=== PATIENT | female | born 1990 | race Hispanic/Latino ===

== ENCOUNTER 2018-12-12 20:35 | Inpatient (IN) | payer OTHER ==
[2018-12-12] MEDS ORDERED: Pantoprazole 40 MG VIAL ONE (20:52)
[2018-12-12] MEDS ORDERED: Metoclopramide HCl 10 MG/2 ML VIAL ONE (20:56)
--- NOTE | 2018-12-12 21:40 | RAD ---
PORTABLE CHEST: HISTORY: Chest pain. FINDINGS: Heart size and mediastinum are within normal limits for the portable technique. The lungs are clear of infiltrates. No significant bony findings. IMPRESSION: No active intrathoracic disease. POS: BENJIE
[2018-12-12 21:51] LABS: Actual Bicarbonate (HCO3v) 10 mEq/L (22-28); Analyzer IN Cardio ER; Base Excess -13.5 mEq/L (-2.0 to +3.0); Calcium, Ionized 0.83 mmol/L (1.16-1.32); Chloride (ABG LAB) 93 mmol/L (98-106); Hemoglobin (Hb) 12.9 g/dL (11.7-15.5); Potassium - ABG Lab 4.36 mmol/L (3.70-5.30); Sodium 126.1 mmol/L (133-146); pH (venous) 7.33 (7.32-7.43)
[2018-12-12 21:52] LABS: BHCG - Serum POSITIVE (NEGATIVE); Pregs Control Background? CLEAR/WHITE (CLR/WHITE); Pregs Control Bar Appear? YES (CONTROL BAR)
[2018-12-12 21:55] LABS: ALT (SGPT) 12 U/L (8-55); CK (CPK) 138 U/L (29-168); Magnesium 1.7 mg/dL (1.6-2.6); Sodium 124 mmol/L (136-145)
[2018-12-12 21:56] LABS: Anion Gap 25 mmol/L (10-20); Carbon Dioxide 13 mmol/L (22-29); Chloride 91 mmol/L (98-107); Potassium 4.8 mmol/L (3.5-5.1)
[2018-12-12 21:57] LABS: BUN (Urea Nitrogen) 17 mg/dL (7.0-18.7); Calc. Creatinine Clearance 0 mL/min (70-130); Estimated GFR-MDRD 76; Glucose 444 mg/dL (70-105)
[2018-12-12 21:59] LABS: Bilirubin, Total 1.1 mg/dL (0.2-1.2); Calcium 5.2 mg/dL (7.8-10.44); Protein, Total 6.1 g/dL (6.0-8.3)
[2018-12-12 22:00] LABS: AST (SGOT) 61 U/L (5-34); Albumin 3.4 g/dL (3.5-5.0); Alkaline Phosphatase 60 U/L (40-150); Globulin 2.7 g/dL (2.4-3.5)
[2018-12-12 22:01] LABS: Lipase 440 U/L (8-78); Phosphorus 2.3 mg/dL (2.3-4.7)
[2018-12-12 22:28] LABS: Bilirubin Moderate (Negative); Blood, Urine Small (Negative); Clarity CLOUDY (Clear); Glucose, Urine (Dipstick) >=1000 mg/dL (Negative); Leukocyte Negative (Negative); Nitrite Negative (Negative); Protein, Urine (Dipstick) 30 mg/dL (Neg-Trace); Specific Gravity, Urine 1.025 (1.002-1.036); Urobilinogen 0.2 mg/dL (0.2-1.0); pH, Urine 5.5 (5.0-9.0)
[2018-12-12 22:29] LABS: Bacteria/HPF None Seen HPF (None Seen); Pregnancy Test - Urine (BHCG) Negative (Negative); Pregu Control Background? CLEAR/WHITE (CLR/WHITE); Pregu Control Bar Appear? YES (CONTROL BAR); Specific Gravity 1.025 (1.002-1.036); WBC/HPF 0-3 HPF (0-3)
[2018-12-12 22:31] LABS: Hyaline Casts/LPF 0-3 HYALINE CAST LPF (0-3 Hyaline); Pathc Cast-AUWi Flag 2.61 (0-2.49)
[2018-12-12] MEDS ORDERED: Insulin Regular 300 UNITS/3 ML VIAL ONE (23:10)
[2018-12-12] MEDS ORDERED: Lorazepam 2 MG/ML VIAL ONE (23:14)
[2018-12-12] MEDS ORDERED: Lidocaine Viscous Sol 2% 15 ml UD Cup ONE (23:14)
[2018-12-12] MEDS ORDERED: Mag-Al 1200 mg/1200 mg/30 ML UDCUP ONE (23:14)
[2018-12-12] MEDS ORDERED: Insulin Regular 100 units/100 ml in NS IVPB SCH (23:15)
[2018-12-12] MEDS ORDERED: HUMULIN R 100 UNITS in Sodium Chloride 0.9% 100 ML IVPB SCH (23:45)
[2018-12-12] MEDS ORDERED: Ondansetron ODT 4 MG TAB PO PRN (23:56)
[2018-12-12] MEDS ORDERED: Sodium Chloride 0.9% 1,000 ML IV PRN ×4 (23:57)
[2018-12-12] MEDS ORDERED: CCU Electrolyte Replacement 1 EACH IVPB ONE (23:57)
[2018-12-12] MEDS ORDERED: Dextrose 5 %-0.45 % NaCl 1,000 ML IV PRN (23:57)
[2018-12-12] MEDS ORDERED: NS 0.9% w/ 20 MEQ KCL 1,000 ML IV PRN ×2 (23:57)
[2018-12-13 00:42] LABS: BUN (Urea Nitrogen) 15 mg/dL (7.0-18.7); Calc. Creatinine Clearance 0 mL/min (70-130); Calcium 5.4 mg/dL (7.8-10.44); Carbon Dioxide Less than 8 mmol/L (22-29); Chloride 98 mmol/L (98-107); Estimated GFR-MDRD Greater than 90; Glucose 297 mg/dL (70-105); Potassium 4.5 mmol/L (3.5-5.1); Sodium 124 mmol/L (136-145)
[2018-12-13 00:43] LABS: Free T4 (Free Thyroxine) 1.14 ng/dL (0.70-1.48); Thyroid Stimulating Hormone 0.1877 uIU/mL (0.35-4.94)
[2018-12-13] MEDS ORDERED: Magnesium Oxide 400 MG TAB PO PRN ×2 (00:51)
[2018-12-13] MEDS ORDERED: Potassium Phosphate 9 MMOL in Sodium Chloride 0.9% 100 ML IVPB PRN (00:51)
[2018-12-13] MEDS ORDERED: Potassium Chloride 40 MEQ in Premix Bag 1 BAG IVPB PRN (00:51)
[2018-12-13] MEDS ORDERED: Magnesium 2 GM/NS 0.9% 100 ML 2 GM in Premix Bag 1 BAG IVPB PRN (00:51)
[2018-12-13] MEDS ORDERED: Potassium Chloride 20 MEQ TAB PO PRN (00:51)
[2018-12-13] MEDS ORDERED: Potassium Phosphate 12 MMOL in Sodium Chloride 0.9% 250 ML 250 ML IV PRN (00:51)
[2018-12-13] MEDS ORDERED: Potassium Phosphate 15 MMOL in Sodium Chloride 0.9% 250 ML 250 ML IV PRN (00:51)
[2018-12-13] MEDS ORDERED: Potassium Chloride 40 MEQ in Sodium Chloride 0.9% 250 ML 250 ML IVPB PRN (00:51)
[2018-12-13] MEDS ORDERED: CCU ELECTROLYTE REPLACEMENT PROTOCOL FS PRN (00:51)
[2018-12-13 00:59] LABS: Acetaminophen Less than 6.0 mcg/mL (10.0-30.0); Alcohol Less than 10 mg/dL (Less than 10)
[2018-12-13 01:03] LABS: Salicylate Less than 8.0 mg/dL (15.0-30.0)
[2018-12-13 01:50] LABS: Amphetamine Not Detected (NotDetected); Barbiturates Screen Not Detected (NotDetected); Benzodiazepine Screen Not Detected (NotDetected); Cocaine Metabolite Screen Not Detected (NotDetected); Medtox Control Line Valid? VALID (VALID); Medtox Reader # READER 4; Methadone Not Detected (NotDetected); Methamphetamine Not Detected (NotDetected); Opiate Screen Not Detected (NotDetected); Oxycodone Screen Not Detected (NotDetected); Phencyclidine (PCP) Not Detected (NotDetected); THC/Cannabinoid Screen Not Detected (NotDetected); Tricyclic Screen Not Detected (NotDetected)
[2018-12-13 01:53] VITALS: BMI 35.1
[2018-12-13] MEDS ORDERED: Sodium Chloride 0.9% 1,000 ML IV SCH (02:00)
[2018-12-13] MEDS: NS 0.9% w/ 20 MEQ KCL 1,000 ML IV SCH ×6 (02:17→18:07)
[2018-12-13] MEDS ORDERED: Calcium Gluconate 4.6 MEQ in Sodium Chloride 0.9% 100 ML IVPB SCH (02:31)
[2018-12-13] MEDS ORDERED: cefTRIAXone\\ROCEPHIN 1 GM in Sodium Chloride 0.9% 100 ML IVPB SCH (02:45)
[2018-12-13] MEDS: D5 1/2 NS w/20 mEq KCL 1,000 ML IV PRN ×4 (02:56→22:04)
--- NOTE | 2018-12-13 02:57 | PDOC.EVN ---
Event Note - Event Note Event Note: pt has continued to be very tachycardic, , she is now febrile, will cover with antibiotics and do ct abdomen and pelvis since rest of work up for source of sepsis is negative and pt is very ill, lipase is high could be acute pancreatitis, she has stated she is not , since she does not have a sexual partner Preliminary report of the ct showed acute pancreatitis with possible necrosis at the pancreatic tail, pt has remained stable, will follow Dr Isaacs recommendations
[2018-12-13 03:26] LABS: Actual Bicarbonate (HCO3v) 15 mEq/L (22-28); Base Excess -6.8 mEq/L (-2.0 to +3.0); Calcium, Ionized 0.59 mmol/L (1.16-1.32); Chloride (ABG LAB) 103 mmol/L (98-106); Hemoglobin (Hb) 11.6 g/dL (11.7-15.5); Potassium - ABG Lab 3.66 mmol/L (3.70-5.30); Sodium 126.6 mmol/L (133-146); pH (venous) 7.48 (7.32-7.43)
--- NOTE | 2018-12-13 04:17 | HP ---
PRIMARY CARE DOCTOR: Dr. Pat Kumar. CODE STATUS: Full code. TIME OF EVALUATION: 1135 p.m. CHIEF COMPLAINT: Generalized weakness, nausea and vomiting. HISTORY OF PRESENT ILLNESS: This is a 28-year-old female patient with a history of diabetes for the past 40 years. The patient came to the hospital after having nausea, vomiting, and abdominal pain for the past 2 days. No clear triggers. No alleviating factors, associated with generalized weakness. The symptoms were severe. The patient symptoms started insidiously and has been getting gradually worse. No clear triggers. She was found to be in DKA, receiving treatment for it. REVIEW OF SYSTEMS: CONSTITUTIONAL: The patient had no fevers. She reported chills, generalized weakness. RESPIRATORY: No cough, sputum production, or shortness of breath. CARDIOVASCULAR: No chest pain or palpitations. GASTROINTESTINAL: The patient had nausea, vomiting. No diarrhea. She had abdominal pain. 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 GENITOURINARY: No burning on urination. EXTREMITIES: No leg swelling. All other systems were reviewed and negative except for the findings mentioned above. PAST MEDICAL HISTORY: Includes hypertension. PAST SURGICAL HISTORY: 1. Appendectomy. 2. Tonsillectomy. PSYCHIATRIC HISTORY: No previous psych history. SOCIAL HISTORY: The patient drinks socially. No drugs. No smoking history. KNOWN ALLERGIES: No known drug allergies. REPORTED MEDICATIONS: 1. Levemir. 2. Metformin. 3. Lisinopril. PHYSICAL EXAMINATION: VITAL SIGNS: On presentation, blood pressure 112/72 with a heart rate of 147, respiratory rate was 18. Pain was 4/10. GENERAL APPEARANCE: The patient is alert, oriented, not in acute distress. HEENT: Eyes, normal conjunctivae. Dry oral mucosa. Anicteric. NECK: No JVD. RESPIRATORY: Bilateral air entry. No rales. No wheezes. Symmetric expansion. CARDIOVASCULAR: The patient is tachycardic with regular rhythm. No murmurs, no gallops. No edema. ABDOMEN: Soft, normal bowel sounds. MUSCULOSKELETAL: Baseline range of motion and strength. No tenderness. SKIN: Warm, intact. No pallor. No rash. No redness. Peripheral pulses are present. Capillary refill seems to be intact. NEUROLOGIC: No evidence of any new focal weakness. Baseline speech. Cranial nerves seems to be intact. PSYCHIATRIC: The patient has good mood. No anxiety. Optimal judgment. IMAGING: EKG was reviewed. The patient has sinus tachycardia, heart rate 163, KS 96, QRS 66, QT corrected 500. Chest x-ray was reviewed and was negative. LABORATORY DATA: Labs were reviewed. The patient has white count 18.6, hemoglobin 11.1, and MCV 80, platelet count 206, bands 38, VBG; pH 7.33. Chemistry: Sodium 124. Repeat sodium 134, potassium 4.8, repeated one 4.5, carbon dioxide 13, the second one was less than 8, anion gap 25, creatinine 0.9, GFR greater than 90, glucose 144, repeated one 297. Calcium is in the low side, initially 5.2 and the ionized calcium was 0.83. LFTs were normal. Albumin 3.4, lipase 440. TSH 0.1877. Initial serum test was positive. The repeat one in urine was negative. The urine showed glucosuria with some ketones. Toxicology was negative and beta hydroxybutyrate was 4.5. ASSESSMENT AND PLAN: The patient will be placed in the hospital with the following medical problems: 1. Diabetic ketoacidosis: The patient has uncontrolled diabetes, acidosis and ketosis. The patient waited 2 days at home after feeling the symptoms. We have started the patient on diabetic ketoacidosis protocol. The patient is still tachycardic, care being given for aggressive fluid resuscitation. We will follow up protocol. Monitor in IMCU. 2. Leukocytosis, unclear the etiology for the leukocytosis. Urine is negative. Chest x-ray was negative. The patient does have some bands. We will start the patient on antibiotic empirically. This could be associated with dehydration. We will reassess after further workup and the patient condition changes. 3. Hypocalcemia. Calcium is being 5.2, repeated one 5.4. The patient has also low ionized calcium. We will replace electrolytes as needed. 4. Elevated lipase, with some abdominal pain. There is a possibility for underlying pancreatitis. 5. The patient is receiving aggressive resuscitation. We will monitor and repeat lipase later on. 6. Deep venous thrombosis prophylaxis. Job ID: [id number] [facility]
[2018-12-13 04:26] LABS: Anion Gap 20 mmol/L (10-20); BUN (Urea Nitrogen) 12 mg/dL (7.0-18.7); Calc. Creatinine Clearance 186 mL/min (70-130); Calcium 5.1 mg/dL (7.8-10.44); Carbon Dioxide 8 mmol/L (22-29); Chloride 103 mmol/L (98-107); Estimated GFR-MDRD Greater than 90; Glucose 202 mg/dL (70-105); Potassium 4.1 mmol/L (3.5-5.1); Sodium 127 mmol/L (136-145)
[2018-12-13] MEDS: Acetaminophen 325 MG TAB PO PRN (05:15)
[2018-12-13] MEDS ORDERED: Lorazepam 2 MG/ML VIAL SLOW IVP SCH (05:15)
[2018-12-13] MEDS: Piperacillin/Tazobactam 3.375 GM in Sodium Chloride 0.9% 100 ML IVPB SCH ×2 (05:16→08:39)
[2018-12-13 05:25] LABS: #Basophils 0.2 thou/uL (0.0-0.2); #Lymphocytes 1.3 thou/uL (1.20-3.40); #Monocytes 0.6 thou/uL (0.11-0.59); #Neutrophils 11.5 thou/uL (1.40-6.50); %Basophils 1.2 % (0.0-1.0); %Eosinophils 0.3 % (0.0-10.0); %Lymphocytes 9.6 % (21.0-51.0); %Monocytes 4.1 % (0.0-10.0); %Neutrophils 84.8 % (42.0-75.0); Mean Corpuscular HGB CONC 34.3 g/dL (32.0-36.0); Mean Corpuscular Hemoglobin 27.4 pg (27.0-31.0); Mean Platelet Volume 10.3 fL (7.4-10.4); Platelet Count 114 thou/uL (130-400); Platelet Morphology Comment Appears Decreased; RBC Distribution Width 13.2 % (11.5-14.5); Red Blood Cell (RBC) Count 3.67 mill/uL (4.20-5.40); White Blood Cell (WBC) Count 13.6 thou/uL (4.8-10.8)
[2018-12-13] MEDS: Enoxaparin Sodium 40 MG/0.4 ML SYRINGE SC SCH (08:40)
--- NOTE | 2018-12-13 08:46 | CT ---
PRELIMINARY REPORT/[facility]/EMERGENTY AFTER-HOURS PROCEDURE CT Abdomen and Pelvis With Contrast EXAM DATE/TIME: 12/13/2018 4:11 AM CLINICAL HISTORY: 28 years old, female; Signs and symptoms; Other: Tachycardic; Patient HX: Limited oral contrast. Stop ped per dr gleason. Pos sepsis. Tachycardic. Hyperglycemic. Surgical HX includes appy. TECHNIQUE: Axial computed tomography images of the abdomen and pelvis with intravenous contrast. Coronal reforma tted images were created and reviewed. COMPARISON: No relevant prior studies available. FINDINGS: Lower thorax: There are small bilateral pleural effusions. There is interstitial thickening at the latoya ng bases compatible of mild pulmonary edema. ABDOMEN: Liver: There are no focal liver lesions identified. Gallbladder and bile ducts: The gallbladder is normal. There is no evidence of biliary ductal dilatio n. Pancreas: There is marked diffuse peripancreatic inflammatory stranding and fluid, consistent with se jc acute pancreatitis. There is an area of hypoattenuation involving the tail the pancreas possibly representing pancreatic necrosis. Spleen: The spleen is normal. Adrenals: The adrenal glands are normal. Kidneys and ureters: The kidneys appear normal. No hydronephrosis. Stomach and bowel: The stomach is normal. The duodenum is unremarkable. The colon is normal. Appendix: There has been an appendectomy. PELVIS: Bladder: The bladder is normal. Reproductive: The uterus is normal. ABDOMEN and PELVIS: Intraperitoneal space: There is mild abdominal pelvic pathology. Bones/joints: No acute fracture. No dislocation. Soft tissues: Unremarkable. Vasculature: Normal. No abdominal aortic aneurysm. Lymph nodes: Normal. No enlarged lymph nodes. IMPRESSION: Severe acute pancreatitis with extensive abdominal inflammation/stranding and peripancreatic fluid. P robable necrosis of the pancreatic tail. Thank you for allowing us to participate in the care of your patient. Dictated and Authenticated by: Sergio Huitron MD 12/13/2018 5:04 AM Central Time ([place] & [place]) FINAL REPORT ABDOMEN CT WITH CONTRAST PELVIC CT WITH CONTRAST: Date: 12/13/18 HISTORY: Tachycardia. Evaluate for sepsis. COMPARISON: None. FINDINGS: This report is in agreement with the preliminary report by Christ. There is marked peripancreatic infla mmatory change, compatible with acute pancreatitis. Heterogeneous appearance of the pancreatic parenc hyma does suggest areas of edema and possible necrosis. Not reported in the preliminary report by Starr d are two separate hypodensities in the expected region of the right adnexa, which may be of ovarian origin. Evaluation is incomplete. Pelvic ultrasound may be beneficial. The conglomeration of these tw o possibly separate lesions measure 6.2 x 3.2 cm. IMPRESSION: 1. Acute pancreatitis. Associated changes as described in the preliminary report by Christ. 2. Hypodensities in the right hemipelvis likely of adnexal origin. Pelvic ultrasound is recommended. Results of study discussed with Dunia, patient's nurse, on 12/13/18 at 0800 hours. CODE CR. POS: CHELSI
[2018-12-13] MEDS ORDERED: Vancomycin HCl 1 GM in Premix Bag 1 BAG IVPB SCH (09:00)
--- NOTE | 2018-12-13 09:31 | CON ---
DATE OF CONSULTATION: HISTORY OF PRESENT ILLNESS: Nupur Garsia is a 28-year-old female, nonsmoker, nondrinker, presented with several day history of nausea, abdominal pain, and vomiting. CT scan of the abdomen shows severe necrotizing pancreatitis. She has known history of diabetes. Father was at the bedside, states that she has not been very compliant with her medication. She is in the MICU, the reason for consultation. PAST MEDICAL HISTORY: Hypertension, diabetes. PAST SURGICAL HISTORY: Tonsils, appendix. HABITS: Alcohol, minimal if any at all. Tobacco, none. MEDICATIONS: Home medications: 1. Levemir 15 units once a day. 2. Metformin 500 two a day. 3. Lisinopril 5 a day. ALLERGIES: NONE. 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 REVIEW OF SYSTEMS: Ten-point negative. PHYSICAL EXAMINATION: VITAL SIGNS: She is tachycardic at 140. Sats are 96% on room air, temperature 98, blood pressure 118/87. CHEST: Decreased breath sounds. No wheezing. CARDIAC: Sinus tach. ABDOMEN: Distended, but soft. LABORATORY DATA: White count 30,000, H and H is 10 and 29, platelet count is low 114, was 206 yesterday. Blood sugar is 211. Drug screen was negative. Urine was unremarkable. Bicarb was 8 yesterday. Sodium was 124, calcium was 5.4, glucose of 355. Chest x-ray was unremarkable. ASSESSMENT: 1. Severe pancreatitis. 2. Marked electrolyte imbalance. 3. Diabetes. PLAN: She has been consulted. Otherwise, continue IV fluids, supportive care. We will switch her over to meropenem. This is a consultation note, 70 minutes, 50% direct patient care. Job ID: [id number]
[2018-12-13] MEDS: Ondansetron PF 4 MG/2 ML Vial IVP PRN ×2 (09:36→20:37)
[2018-12-13 09:37] LABS: Anion Gap 14 mmol/L (10-20); BUN (Urea Nitrogen) 10 mg/dL (7.0-18.7); Calc. Creatinine Clearance 196 mL/min (70-130); Calcium 5.7 mg/dL (7.8-10.44); Carbon Dioxide 13 mmol/L (22-29); Chloride 103 mmol/L (98-107); Estimated GFR-MDRD Greater than 90; Glucose 191 mg/dL (70-105); Potassium 4.1 mmol/L (3.5-5.1); Sodium 126 mmol/L (136-145)
--- NOTE | 2018-12-13 10:42 | PDOC.PN ---
- Subjective Encounter Start Date: 12/13/18 Encounter Start Time: 10:40 Subjective: some nausea - Objective Resuscitation Status - Order Detail: 12/12/18 23:56 Resuscitation Status Routine Resuscitation Status: FULL: Full Resuscitation MAR Reviewed: Yes Vital Signs & Weight: Vital Signs (12 hours) Temp Pulse Resp BP Pulse Ox 12/13/18 07:20 98.1 F 12/13/18 03:37 100.0 F H 12/13/18 01:25 99.0 F 149 H 37 H 119/94 H 100 Weight Weight 179 lb 14.355 oz Most Recent Monitor Data Heart Rate from ECG 139 NIBP 118/87 NIBP BP-Mean 97 Respiration from ECG 35 SpO2 100 I&O: 12/12/18 12/13/18 12/14/18 06:59 06:59 06:59 Intake Total 2883 Balance 2883 Result Diagrams: 12/13/18 04:30 12/13/18 08:55 Additional Labs: Accuchecks 12/13/18 12/13/18 12/13/18 10:22 09:41 08:21 POC Glucose 190 H 183 H 216 H 12/13/18 12/13/18 12/13/18 07:25 06:17 05:18 POC Glucose 248 H 244 H 237 H 12/13/18 12/13/18 12/13/18 04:30 03:02 02:03 POC Glucose 216 H 191 H 239 H 12/13/18 12/12/18 12/12/18 01:07 23:48 22:46 POC Glucose 248 H 335 H 405 H 12/12/18 12/12/18 21:56 20:45 POC Glucose 437 H 486 H Phys Exam - Physical Examination Neck: no JVD Respiratory: clear to auscultation bilateral Cardiovascular: RRR Gastrointestinal: soft Musculoskeletal: no edema Dx/Plan (1) DKA, type 1 Code(s): E10.10 - TYPE 1 DIABETES MELLITUS WITH KETOACIDOSIS WITHOUT COMA Status: Acute Qualifiers: Diabetes mellitus complication detail: without coma Qualified Code(s): E10.10 - Type 1 diabetes mellitus with ketoacidosis without coma (2) Acute pancreatitis Code(s): K85.90 - ACUTE PANCREATITIS WITHOUT NECROSIS OR INFECTION, UNSP Status: Acute Qualifiers: Pancreatitis type: other (3) HTN (hypertension) Code(s): I10 - ESSENTIAL (PRIMARY) HYPERTENSION Status: Chronic Qualifiers: Hypertension type: essential hypertension Qualified Code(s): I10 - Essential (primary) hypertension (4) Positive test Code(s): Z32.01 - ENCOUNTER FOR TEST, RESULT POSITIVE Status: Acute - Plan cont DKA protocol with iv fluids, serial accu, iv insulin, serial BMP -: pelvic US -: serial lipase * .
[2018-12-13] MEDS ORDERED: Vancomycin HCl 1.25 GM in Sodium Chloride 0.9% 250 ML 250 ML IVPB SCH (11:00)
--- NOTE | 2018-12-13 16:29 | ULT ---
PELVIC ULTRASOUND: HISTORY: Abnormal mass in the right adnexa noted on ultrasound. Pancreatitis. COMPARISON: None. TECHNIQUE: Transabdominal and endovaginal imaging of the pelvis is performed. The adnexal structures are interr ogated with wen-scale, color-flow, Doppler imaging, and spectral wave-form analysis. FINDINGS: Neither ovary is definitively appreciated. There is extensive fluid in the pelvis. The right adnexa l masses are difficult to assess by sonography. There appear to be echogenic foci, which may represe nt a partially calcified lesion, incompletely evaluated. There is a mixed echotexture focus, measuri ng 4.2 x 4.1 cm. There is a solid echotexture focus, measuring 3.2 x 3.1 cm. A component of this le sierra measures at least 4.1 x 3.2 cm. Limited evaluation of the uterus. No myometrial masses. The uterus measures 6.8 x 4 x 5.4 cm. Homo geneous endometrium, slightly thickened, measuring 1.4 cm. IMPRESSION: 1. Extensive free fluid in the pelvis. 2. Thickened endometrium. Correlate for phase of menstruation. 3. Previously noted masses in the right adnexa are difficult to appreciate on the current examinatio n. 4 Questionable partially calcified lesion in the right adnexa, as described above. 5. Additional mixed echotexture lesion in the right adnexa, as described above. 6. There is a third, more solid echotexture focus in the right adnexa, also described above. Furthe r evaluation with pelvic MRI may be beneficial. POS: CHELSI
--- NOTE | 2018-12-13 16:41 | CON ---
DATE OF CONSULTATION: 12/13/2018 CHIEF COMPLAINT: Nausea, vomiting, and abdominal pain. HISTORY OF PRESENT ILLNESS: Ms. Garsia is a 28-year-old woman with a history of diabetes mellitus type 1, who developed onset of nausea and vomiting on Thursday night. She vomited all day through the day on Thursday and had some vague mild left upper quadrant epigastric aching abdominal pain. The pain did not radiate. She had normal bowel movement on Thursday and Thursday. However today, she had a couple of liquidy stools. Yesterday, she continued having the vomiting and ultimately she came into the emergency room for further care. She was found to have diabetic ketoacidosis and pancreatitis and GI was consulted to evaluate the pancreatitis. Today, she has had some episodes of dry heaving, but no ongoing vomiting this afternoon. She had 2 liquidy stools today. She has had no blood in the stool. No bloody emesis. No alcohol intake lately. PAST MEDICAL HISTORY: Diabetes mellitus type 1. She was also told she had pancreatic inflammation at the time of DKA diagnosis. She has hypertension and states that at one point she was on medication for cholesterol, but not lately. PAST SURGICAL HISTORY: Appendectomy and tonsillectomy. FAMILY HISTORY: Negative for pancreatitis or liver disease or GI malignancy. SOCIAL HISTORY: She has 2 or 3 drinks once or twice per month. No smoking. No drugs. ALLERGIES: NO KNOWN DRUG ALLERGIES. MEDICATIONS: Prior to admission include; 1. Metformin. 2. Lisinopril. 3. Insulin. REVIEW OF SYSTEMS: Negative x10 systems reviewed except as stated in history of present illness. PHYSICAL EXAMINATION: VITAL SIGNS: Temperature 98.8, pulse 135, and blood pressure 123/100. GENERAL: She is in no acute distress. She is alert and oriented x3. HEENT: Eyes have no scleral icterus. Oropharynx is clear without lesions. NECK: No cervical or supraclavicular lymphadenopathy. LUNGS: Clear to auscultation bilaterally. HEART: Tachycardic. S1 and S2. ABDOMEN: Soft. She has mild tenderness in the left upper quadrant without guarding. Bowel sounds are present. EXTREMITIES: No lower extremity edema. NEUROLOGIC: Cranial nerves are grossly intact. LABORATORY DATA: White blood cell count 13.6, hemoglobin 10.0, and platelets 114. Calcium 5.7, creatinine 0.56, sodium 126, lipase 440 last night and 263 today, amylase 189, bilirubin 1.1, AST 61, ALT 12, alk phos 60, and albumin 3.4. Serum test was reported as positive. Urine toxicology screen was negative and triglycerides added to the admission labs were 2222. IMAGING: CT scan of the abdomen and pelvis showed diffuse edema with peripancreatic inflammatory changes. There was an area in the tail of the pancreas that did not show good perfusion with contrast, may be a site of pancreatic necrosis. IMPRESSION: 1. Severe pancreatitis with possible area of necrosis in the tail of the pancreas by CT scan. 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 It is unclear if the diabetic ketoacidosis caused the hypertriglyceridemia or if the hypertriglyceridemia-induced pancreatitis caused the diabetic ketoacidosis. 2. Diabetic ketoacidosis. 3. Hypocalcemia. 4. Tachycardia. She did receive 3 L of saline in the ER, an additional aggressive IV hydration per ICU protocol. 5. Question of adnexal lesion. Her test was positive. However, she denies contacts in the last year. This is being worked up further with pelvic ultrasound. RECOMMENDATIONS: 1. Continue aggressive rehydration. 2. Insulin drip to treat the hypertriglyceridemia as well as treat the DKA. 3. Follow trend of the triglyceride levels. She will likely need to start gemfibrozil or other oral medication longer-term for the triglycerides. 4. There is no evidence of biliary pancreatitis and she has not had significant alcohol use. Job ID: [id number]
[2018-12-13] MEDS ORDERED: ISOVUE-370 76%-LOCM 1 ML ONE (16:56)
--- NOTE | 2018-12-13 17:16 | PDOC.EVN ---
Event Note - Event Note Event Note: pos preg test, normal uterus, adnexal abnormality. will send to CLINICAL RESEARCH ASSISTANT as outpt
[2018-12-13] MEDS: Lorazepam 2 MG/ML VIAL SLOW IVP PRN ×2 (17:48→23:53)
[2018-12-14] MEDS: NS 0.9% w/ 20 MEQ KCL 1,000 ML IV SCH ×3 (01:37→09:13)
[2018-12-14] MEDS: D5 1/2 NS w/20 mEq KCL 1,000 ML IV PRN ×2 (01:43→06:03)
[2018-12-14] MEDS: Ondansetron PF 4 MG/2 ML Vial IVP PRN ×2 (02:42→08:52)
[2018-12-14 05:48] LABS: #Basophils 0.1 thou/uL (0.0-0.2); #Eosinphils 0.1 thou/uL (0.0-0.7); #Lymphocytes 1.2 thou/uL (1.20-3.40); #Monocytes 0.4 thou/uL (0.11-0.59); #Neutrophils 7.6 thou/uL (1.40-6.50); %Basophils 0.8 % (0.0-1.0); %Eosinophils 0.6 % (0.0-10.0); %Lymphocytes 12.5 % (21.0-51.0); %Monocytes 4.2 % (0.0-10.0); %Neutrophils 81.8 % (42.0-75.0); Hemoglobin 8.5 g/dL (12.0-16.0); Mean Corpuscular HGB CONC 33.4 g/dL (32.0-36.0); Mean Corpuscular Hemoglobin 27.1 pg (27.0-31.0); Mean Platelet Volume 10.1 fL (7.4-10.4); Platelet Count 114 thou/uL (130-400); RBC Distribution Width 13.2 % (11.5-14.5); Red Blood Cell (RBC) Count 3.16 mill/uL (4.20-5.40); White Blood Cell (WBC) Count 9.3 thou/uL (4.8-10.8)
[2018-12-14 06:20] LABS: Anion Gap 12 mmol/L (10-20); BUN (Urea Nitrogen) 4 mg/dL (7.0-18.7); Calc. Creatinine Clearance 240 mL/min (70-130); Calcium 6.3 mg/dL (7.8-10.44); Carbon Dioxide 18 mmol/L (22-29); Chloride 104 mmol/L (98-107); Estimated GFR-MDRD Greater than 90; Glucose 184 mg/dL (70-105); Potassium 3.7 mmol/L (3.5-5.1); Sodium 130 mmol/L (136-145)
--- NOTE | 2018-12-14 08:27 | RAD ---
CHEST ONE VIEW: INDICATIONS: Intubation. COMPARISON: 12/12/2018 FINDINGS: There is persistent hypoventilation. There is accentuation of the pulmonary vasculature. No definit e pleural effusion or pneumothorax is evident. IMPRESSION: Hypoventilation. POS: BH
[2018-12-14] MEDS ORDERED: Dextrose 50% Abboject 50 ML SYRINGE SLOW IVP PRN (08:52)
[2018-12-14] MEDS ORDERED: Dextrose 5% in Water 1,000 ML IV PRN (08:52)
[2018-12-14] MEDS: Acetaminophen 325 MG TAB PO PRN ×2 (08:56→21:29)
[2018-12-14] MEDS: Enoxaparin Sodium 40 MG/0.4 ML SYRINGE SC SCH (08:57)
[2018-12-14] MEDS ORDERED: Non-Formulary Item 1 EACH (Insulin Detemir [Levemir] 15 UNIT) SQ SCH (09:00)
--- NOTE | 2018-12-14 09:01 | PDOC.PN ---
- Subjective Encounter Start Date: 12/14/18 Encounter Start Time: 08:59 Subjective: restless, OW ok - Objective Resuscitation Status - Order Detail: 12/12/18 23:56 Resuscitation Status Routine Resuscitation Status: FULL: Full Resuscitation Vital Signs & Weight: Vital Signs (12 hours) Temp 12/14/18 07:24 100.5 F H 12/14/18 04:15 98.6 F 12/14/18 00:10 100.3 F H Weight Weight 192 lb 7.417 oz Most Recent Monitor Data Heart Rate from ECG 143 NIBP 124/84 NIBP BP-Mean 97 Respiration from ECG 27 SpO2 95 I&O: 12/13/18 12/14/18 12/15/18 06:59 06:59 06:59 Intake Total 2883 6150 Output Total 300 Balance 2883 5850 Result Diagrams: 12/14/18 05:35 12/14/18 05:35 Additional Labs: Accuchecks 12/14/18 12/14/18 12/14/18 07:02 06:06 04:19 POC Glucose 217 H 200 H 197 H 12/14/18 12/14/18 12/13/18 03:21 01:03 23:55 POC Glucose 191 H 203 H 198 H 12/13/18 12/13/18 12/13/18 22:19 20:40 19:35 POC Glucose 250 H 225 H 244 H 12/13/18 12/13/18 12/13/18 18:48 17:42 16:36 POC Glucose 243 H 224 H 199 H 12/13/18 12/13/18 12/13/18 15:35 14:36 13:25 POC Glucose 156 H 119 H 141 H 12/13/18 12/13/18 12/13/18 12:26 11:22 10:22 POC Glucose 171 H 189 H 190 H 12/13/18 09:41 POC Glucose 183 H Radiology Reviewed by me: Yes (cxr- no chf, infiltrate, etc) Phys Exam - Physical Examination Neck: no JVD Respiratory: clear to auscultation bilateral Cardiovascular: RRR, no significant murmur tachy at 147 Gastrointestinal: soft, positive bowel sounds Musculoskeletal: edema present Dx/Plan (1) DKA, type 1 Code(s): E10.10 - TYPE 1 DIABETES MELLITUS WITH KETOACIDOSIS WITHOUT COMA Status: Acute Qualifiers: Diabetes mellitus complication detail: without coma Qualified Code(s): E10.10 - Type 1 diabetes mellitus with ketoacidosis without coma (2) Acute pancreatitis Code(s): K85.90 - ACUTE PANCREATITIS WITHOUT NECROSIS OR INFECTION, UNSP Status: Acute Qualifiers: Pancreatitis type: other (3) HTN (hypertension) Code(s): I10 - ESSENTIAL (PRIMARY) HYPERTENSION Status: Chronic Qualifiers: Hypertension type: essential hypertension Qualified Code(s): I10 - Essential (primary) hypertension (4) Positive test Code(s): Z32.01 - ENCOUNTER FOR TEST, RESULT POSITIVE Status: Ruled- out (5) Tachycardia with heart rate 141-160 beats per minute Code(s): R00.0 - TACHYCARDIA, UNSPECIFIED Status: Acute - Plan transition to Q4h accu and mod SS -: Quant BHCG <1.2- false pos -: start liquid diet -: EKG, D-dimer stat * .
[2018-12-14] MEDS: Lorazepam 2 MG/ML VIAL SLOW IVP PRN ×2 (09:06→21:29)
[2018-12-14 09:27] LABS: Iron 25 ug/dL (50-170); Iron Binding Capacity, Total 193 mcg/dL (265-497)
--- NOTE | 2018-12-14 10:03 | PRG ---
DATE OF SERVICE: 12/14/2018 SUBJECTIVE: This morning, she is still nauseated, still having some abdominal pain, but it is less. She is still sinus tachycardic of 140. Surprisingly all numbers have decreased substantially. Triglyceride level, which was 2200 is down to 311, calcium is 6.3, it is part of the pancreatitis. Sodium is improved to 130, white count 9000, H and H 8 and 25, platelet count 114. OBJECTIVE: VITAL SIGNS: She is tachycardic at 149, temperature is 100.5, blood pressure 120/85, respiratory rate 18. Output is excellent is 6150 in and 300 out. CHEST: Decreased breath sounds. No wheezing. CARDIAC: Sinus tachycardia. ABDOMEN: Distended, but soft. IMPRESSION: 1. Pancreatitis secondary to markedly elevated triglyceride level. 2. Diabetes and diabetic ketoacidosis, much improved. Bicarb is down to 18. PLAN: She is on insulin drip as per the protocol. She is on IV fluids. Probably can be switched over to Levemir insulin as per the hospitalist. Continue hydration diet as per GI. We will follow. Job ID: [id number]
[2018-12-14] MEDS ORDERED: ISOVUE-370 76%-LOCM 1 ML ONE (10:04)
[2018-12-14] MEDS: Lisinopril 5 MG TAB PO SCH (10:34)
[2018-12-14] MEDS: INSULIN GLARGINE SC SCH (10:36)
--- NOTE | 2018-12-14 12:20 | CT ---
CTA THORAX WITH IV CONTRAST AND 3D REFORMATTED IMAGING: INDICATIONS: Tachycardia with elevated D-dimer. FINDINGS: There are small bilateral pleural effusions. There is air space consolidation involving both lower l obes, some of which may be related to compressive atelectasis; however, a component of pneumonia chris ot be excluded based on this appearance. Respiratory motion artifact limits evaluation of the segmen patrick pulmonary arteries, particularly of the lower lobes. No definite central pulmonary embolus is ev ident. No definite enlarged lymph nodes are evident. There is prominent wall thickening involving t he gastric fundus and the proximal body, which is nonspecific. There is mild free fluid in the visua lized abdomen. There is hepatomegaly with fatty infiltration. The spleen measures 11.8 cm. No definite acute osseous abnormality is evident. IMPRESSION: 1. No definite central pulmonary embolus within the limitations of the examination. 2. Small bilateral pleural effusion with bibasilar consolidation. Components of the consolidation c ould be related to compressive atelectasis from the pleural effusion; however, bilateral aspiration o r pneumonia is also a concern. Recommend correlation. 3. Mild ascites. 4. Hepatomegaly with fatty infiltration. 5. Wall thickening involving the stomach. This was better seen on a CT of the abdomen and pelvis pe rformed earlier at 4:13 a.m. Some of the wall thickening of the stomach is likely related to reactiv e changes from the patient's prominent pancreatitis, seen on the comparison study. POS: CHELSI
[2018-12-14] MEDS: HumaLOG 300 UNITS/3 ML VIAL SC PRN ×3 (13:11→21:29)
--- NOTE | 2018-12-14 13:23 | PDOC.EVN ---
Event Note - Event Note Event Note: cxr and CT suggest some consolidation- start rocephin and zithromax
[2018-12-14] MEDS ORDERED: Azithromycin 500 MG in Sodium Chloride 0.9% 250 ML 250 ML IVPB SCH (13:30)
[2018-12-14] MEDS ORDERED: cefTRIAXone\\ROCEPHIN 1 GM in Sodium Chloride 0.9% 100 ML IVPB SCH (13:30)
[2018-12-14] MEDS: D5 1/2 NS w/20 mEq KCL 1,000 ML IV SCH ×2 (14:22→21:28)
--- NOTE | 2018-12-14 16:57 | EKG ---
Test Reason : Blood Pressure : / mmHG Vent. Rate : 143 BPM Atrial Rate : 143 BPM P-R Int : 114 ms QRS Dur : 070 ms QT Int : 302 ms P-R-T Axes : 023 000 012 degrees QTc Int : 466 ms Sinus tachycardia Inferior infarct , age undetermined Abnormal ECG When compared with ECG of 12-DEC-2018 20:44, (Unconfirmed) No significant change was found Confirmed by DR. Donna DIA ([id number]) on 12/14/2018 4:56:58 PM Referred By: JORJE Confirmed By:DR. Donna DIA
[2018-12-14] MEDS: metFORMIN 500 MG TAB PO SCH (17:16)
--- NOTE | 2018-12-14 18:35 | PRG ---
DATE OF SERVICE: 12/14/2018 SUBJECTIVE: Ms. Garsia is having markedly improved abdominal pain today. She has tolerated clear liquids well. OBJECTIVE: VITAL SIGNS: Temperature 98.4, blood pressure 112/62, pulse is still running in the 140s. GENERAL: She is in no acute distress, alert, and oriented x3. LUNGS: Clear to auscultation bilaterally. HEART: Tachycardic, S1 and S2. ABDOMEN: Soft, nontender, and nondistended. Bowel sounds are present. EXTREMITIES: Show no lower extremity edema. LABORATORY DATA: White blood cell count 9.3, hemoglobin 8.5, platelets 114, creatinine 0.49, anion gap 12. Triglycerides are down from 2222 to 311. IMPRESSION: Acute severe pancreatitis with possible evidence of necrosis by contrast enhanced CT scan. She is markedly improved today. The pancreatitis is secondary to hypertriglyceridemia induced pancreatitis. The hypertriglyceridemia may have been secondary to the diabetic ketoacidosis. Alternatively, it is possible that the pancreatitis causes diabetic ketoacidosis. RECOMMENDATIONS: 1. She is tolerating a clear liquid diet now. We can transition to a low-fat diet in the morning. 2. She will need to monitor her triglyceride levels closely longer-term and will require chronic treatment if they remain significantly elevated. Job ID: [id number]
--- NOTE | 2018-12-14 21:49 | ULT ---
BILATERAL LOWER EXTREMITY VENOUS DOPPLER ULTRASOUND: 12/14/18 HISTORY: Elevated D-dimer. TECHNIQUE: Kim scale ultrasound with color flow and spectral doppler imaging of the deep venous systems of the lower extremities performed bilaterally. FINDINGS: There is good flow, compression, and augmentation noted in the common femoral, femoral, deep femoral, popliteal, posterior tibial and greater saphenous veins on either side. IMPRESSION: No evidence of DVT in either lower extremity. POS: [facility]
[2018-12-15] MEDS: Lorazepam 2 MG/ML VIAL SLOW IVP PRN ×2 (03:30→20:27)
[2018-12-15 04:51] LABS: Anion Gap 13 mmol/L (10-20); BUN (Urea Nitrogen) 5 mg/dL (7.0-18.7); Calc. Creatinine Clearance 255 mL/min (70-130); Calcium 6.4 mg/dL (7.8-10.44); Carbon Dioxide 19 mmol/L (22-29); Chloride 103 mmol/L (98-107); Estimated GFR-MDRD Greater than 90; Glucose 242 mg/dL (70-105); Potassium 3.6 mmol/L (3.5-5.1); Sodium 131 mmol/L (136-145)
[2018-12-15] MEDS: HumaLOG 300 UNITS/3 ML VIAL SC PRN ×4 (06:14→20:36)
--- NOTE | 2018-12-15 08:28 | PDOC.PN ---
- Subjective Encounter Start Date: 12/15/18 Encounter Start Time: 08:27 Subjective: eating, no abb pain - Objective Resuscitation Status - Order Detail: 12/12/18 23:56 Resuscitation Status Routine Resuscitation Status: FULL: Full Resuscitation Vital Signs & Weight: Vital Signs (12 hours) Temp 12/15/18 07:10 100.6 F H 12/15/18 04:15 100.1 F H 12/15/18 00:00 99.3 F Weight Weight 192 lb 7.417 oz Most Recent Monitor Data Heart Rate from ECG 139 NIBP 117/75 NIBP BP-Mean 89 Respiration from ECG 27 SpO2 94 I&O: 12/14/18 12/15/18 12/16/18 06:59 06:59 06:59 Intake Total 6150 1800 Output Total 300 Balance 5850 1800 Result Diagrams: 12/14/18 05:35 12/15/18 04:09 Additional Labs: Accuchecks 12/14/18 12/14/18 12/14/18 20:03 16:36 12:21 POC Glucose 238 H 245 H 195 H 12/14/18 12/14/18 12/14/18 11:18 09:59 09:01 POC Glucose 167 H 170 H 185 H 12/14/18 12/14/18 08:08 02:12 POC Glucose 201 H 198 H Radiology Reviewed by me: Yes (cxr- bilat pleural effusion vs infiltrate) Phys Exam - Physical Examination Neck: no JVD bibasilar rales Cardiovascular: RRR, no significant murmur Gastrointestinal: soft, non-tender, positive bowel sounds Musculoskeletal: edema present Dx/Plan (1) DKA, type 1 Code(s): E10.10 - TYPE 1 DIABETES MELLITUS WITH KETOACIDOSIS WITHOUT COMA Status: Acute Qualifiers: Diabetes mellitus complication detail: without coma Qualified Code(s): E10.10 - Type 1 diabetes mellitus with ketoacidosis without coma (2) Acute pancreatitis Code(s): K85.90 - ACUTE PANCREATITIS WITHOUT NECROSIS OR INFECTION, UNSP Status: Acute Qualifiers: Pancreatitis type: other (3) HTN (hypertension) Code(s): I10 - ESSENTIAL (PRIMARY) HYPERTENSION Status: Chronic Qualifiers: Hypertension type: essential hypertension Qualified Code(s): I10 - Essential (primary) hypertension (4) Positive test Code(s): Z32.01 - ENCOUNTER FOR TEST, RESULT POSITIVE Status: Ruled- out (5) Tachycardia with heart rate 141-160 beats per minute Code(s): R00.0 - TACHYCARDIA, UNSPECIFIED Status: Acute (6) Pleural effusion associated with pancreatitis Code(s): K85.90 - ACUTE PANCREATITIS WITHOUT NECROSIS OR INFECTION, UNSP; J91.8 - PLEURAL EFFUSION IN OTHER CONDITIONS CLASSIFIED ELSEWHERE Status: Acute - Plan iv fluis. 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
[2018-12-15 08:43] LABS: Hemoglobin 7.2 g/dL (12.0-16.0); Mean Corpuscular HGB CONC 32.1 g/dL (32.0-36.0); Mean Corpuscular Hemoglobin 26.2 pg (27.0-31.0); Mean Corpuscular Volume 81.7 fL (78.0-98.0); Mean Platelet Volume 9.8 fL (7.4-10.4); Platelet Count 130 thou/uL (130-400); RBC Distribution Width 13.6 % (11.5-14.5); Red Blood Cell (RBC) Count 2.73 mill/uL (4.20-5.40); White Blood Cell (WBC) Count 10.2 thou/uL (4.8-10.8)
--- NOTE | 2018-12-15 08:45 | RAD ---
PORTABLE CHEST ONE VIEW: Date: 12-15-18 Time: 4:41 a.m. History: Respiratory distress. FINDINGS/IMPRESSION: The heart size is borderline. There are bilateral small pleural effusions and adjacent atelectasis ch anges. No pneumothoraces seen. POS: H
--- NOTE | 2018-12-15 09:08 | PRG ---
DATE OF SERVICE: 12/15/2018 SUBJECTIVE: This morning, she remains tachycardic, tachypneic. OBJECTIVE: VITAL SIGNS: Temperature 100.6, pulse 140, blood pressure 170/75, respirations 20. GENERAL: She is awake, alert, responsive. Denies any pain. Denies any discomfort. In fact, she ate some breakfast. CHEST: Decreased breath sounds. Minimal crackles. CARDIAC: Sinus tach. ABDOMEN: Distended but soft. LABORATORY DATA: Sodium is 131, improved. Potassium is 6.4. She had a CT done of her chest yesterday to rule out pulmonary emboli, which showed the previously described bilateral pleural effusion and atelectasis in the left lung. IMPRESSION: Severe pancreatitis, bilateral pleural effusion and atelectasis probably secondary to pancreatitis. PLAN: Discussed with the admitting physician. Switch over to meropenem. Supportive care, nutrition, PT. We will order an echo to assess her cardiac function. Job ID: [id number]
[2018-12-15 09:20] LABS: Band 26 % (5-11); Lymphocytes 23 % (21-51); MDiff Complete? YES; Monocytes 5 % (0-10); Neutrophil 46 % (42-75); Platelet Morphology Comment Appears Adequate; Polychromasia SLIGHT = 2-3 cells (100X) (0-2/hpf)
[2018-12-15] MEDS: INSULIN GLARGINE SC SCH (09:28)
[2018-12-15] MEDS: Lisinopril 5 MG TAB PO SCH (09:28)
[2018-12-15] MEDS: metFORMIN 500 MG TAB PO SCH ×2 (09:28→17:31)
[2018-12-15] MEDS: Acetaminophen 325 MG TAB PO PRN ×2 (11:49→19:57)
[2018-12-15] MEDS: D5 1/2 NS w/20 mEq KCL 1,000 ML IV SCH ×2 (11:53→20:01)
[2018-12-15] MEDS: Enoxaparin Sodium 40 MG/0.4 ML SYRINGE SC SCH (11:56)
--- NOTE | 2018-12-15 12:44 | PDOC.EVN ---
Event Note - Event Note Event Note: Hg 7.2- cont daily cbc, stool fo occult blood, transfuse with PRBC for Hg< 7
[2018-12-15] MEDS ORDERED: Meropenem 2 GM in Admixture Fee 1 EACH IVPB SCH (14:00)
[2018-12-15] MEDS: Meropenem 2 GM in Sodium Chloride 0.9% 100 ML IVPB SCH ×2 (14:34→22:20)
--- NOTE | 2018-12-15 15:20 | PRG ---
DATE OF SERVICE: 12/15/2018 SUBJECTIVE: Ms. Garsia tolerated a solid low-fat diet, however, she does not have a lot of appetite. She has no significant abdominal pain. OBJECTIVE: VITAL SIGNS: She is tachycardic. Pulse up to the 140s. Temperature is 102.2, blood pressure 119/69. She is diaphoretic. LUNGS: Clear to auscultation in the upper lung nava. She has poor inspiratory effort overall. HEART: She is tachycardic, S1 and S2. ABDOMEN: Soft, nontender, and nondistended. EXTREMITIES: No lower extremity edema. LABORATORY DATA: White blood cell count 10.2, hemoglobin 7.2, and platelets 130. Creatinine 0.46. IMPRESSION: Severe pancreatitis secondary to hypertriglyceridemia secondary to diabetic ketoacidosis. CT scan showed possibility of necrosis. Given the fever, infected pancreatic necrosis can be considered, however, really this is much earlier than would be expected to develop that and I suspect she has another source other than the pancreas. She is covered with meropenem anyway. RECOMMENDATIONS: 1. Continue low-fat diet. 2. She is on antibiotics and incentive spirometer. 3. Regarding the anemia, she has no GI blood loss apparent. She has brown liquidy stools. Retroperitoneal bleed would have to be considered and I will request a noncontrast CT scan this afternoon. 4. Given the diarrhea and antibiotic use, we will check stool for C difficile. CT scan can check for this if her hemoglobin drops any further. Job ID: [id number]
--- NOTE | 2018-12-15 16:34 | CT ---
CT OF ABDOMEN AND PELVIS PERFORMED WITHOUT CONTRAST ENHANCEMENT: Date: 12/13/18 COMPARISON: 12/13/18 study. HISTORY: Pancreatitis. Low hemoglobin. Left flank pain. FINDINGS: Bilateral pleural effusions are seen, left larger than right. The left effusion is slightly increased as compared to the prior examination. There is bibasilar atelectasis versus infiltrate. These change s are also worsened. The liver and spleen are normal in appearance. Gallbladder is of increased attenuation. This is proba olena related to the fact that the patient was given contrast yesterday. Once again, there are very severe pancreatitis changes seen. On this noncontrast study, it is difficu lt to separate the edema surrounding the pancreas from the actual pancreas itself. Edema and fluid wh ich tracks into the left paracolic gutter well below the level of the left kidney is stable in size. It is of higher attenuation. There could be some hemorrhagic element to this. There is no air seen wi thin the region of the pancreas to suggest any type of abscess developing or gross necrotic change. Right and left adrenal glands, and right and left kidneys are normal in appearance. CT of pelvis was performed with contrast enhancement. There is some minimal presacral soft tissue bambi ma change seen. There are two slightly hyperdense areas within the expected location of the right adn exa. There is some adjacent fluid which appears loculated. I think that this is probably more likely of adnexal origin than related to the pancreatitis change. It could indicate that there is a hemorrha ge cyst or possibly endometrioma in this region. I would not think that this would be the underlying etiology for patient's low hemoglobin as I do not see a significant degree of free fluid in the cul-d e-sac region. The appendix is difficult to definitively define. There are anasarca type changes in the subcutaneous tissue, worsened as compared to the prior study. IMPRESSION: 1. Severe pancreatitis changes with extensive edema and fluid seen in a parapancreatic location and tracking along the left paracolic gutter. Fluid is of higher attenuation and could have some hemorrha gic element to it. It does appear stable in size. 2. Stable appearance to some mildly hyperdense areas within the right adnexal region as stated above . 3. Developing anasarca. 4. Bilateral pleural effusions, left larger than right, with worsening atelectasis or infiltrate in the lung bases. POS: [facility]
[2018-12-16] MEDS: HumaLOG 300 UNITS/3 ML VIAL SC PRN ×4 (01:43→16:15)
[2018-12-16] MEDS ORDERED: HYDROcodone/Acetaminophen 10/325 mg Tablet PO PRN (02:10)
[2018-12-16] MEDS ORDERED: traMADol HCl 50 MG TAB PO SCH (02:15)
[2018-12-16] MEDS: Acetaminophen 325 MG TAB PO PRN ×4 (04:01→23:54)
[2018-12-16 06:04] LABS: #Basophils 0.2 thou/uL (0.0-0.2); #Eosinphils 0.1 thou/uL (0.0-0.7); #Lymphocytes 1.8 thou/uL (1.20-3.40); #Monocytes 0.5 thou/uL (0.11-0.59); #Neutrophils 8.7 thou/uL (1.40-6.50); %Basophils 1.5 % (0.0-1.0); %Eosinophils 0.7 % (0.0-10.0); %Lymphocytes 15.6 % (21.0-51.0); %Monocytes 4.6 % (0.0-10.0); %Neutrophils 77.5 % (42.0-75.0); Hemoglobin 7.1 g/dL (12.0-16.0); Mean Corpuscular HGB CONC 32.3 g/dL (32.0-36.0); Mean Corpuscular Hemoglobin 26.3 pg (27.0-31.0); Mean Corpuscular Volume 81.5 fL (78.0-98.0); Mean Platelet Volume 9.8 fL (7.4-10.4); Platelet Count 150 thou/uL (130-400); RBC Distribution Width 13.7 % (11.5-14.5); Red Blood Cell (RBC) Count 2.69 mill/uL (4.20-5.40); White Blood Cell (WBC) Count 11.2 thou/uL (4.8-10.8)
[2018-12-16 06:18] LABS: Iron 18 ug/dL (50-170); Iron Binding Capacity, Total 168 mcg/dL (265-497)
[2018-12-16 06:19] LABS: ALT (SGPT) 24 U/L (8-55); AST (SGOT) 42 U/L (5-34); Albumin 2.7 g/dL (3.5-5.0); Alkaline Phosphatase 88 U/L (40-150); Bilirubin, Direct 0.6 mg/dL (0.1-0.3); Bilirubin, Total 1.2 mg/dL (0.2-1.2); Lipase 118 U/L (8-78); Protein, Total 5.6 g/dL (6.0-8.3)
[2018-12-16] MEDS: D5 1/2 NS w/20 mEq KCL 1,000 ML IV SCH ×3 (06:26→20:02)
[2018-12-16] MEDS: Meropenem 2 GM in Sodium Chloride 0.9% 100 ML IVPB SCH ×3 (06:32→21:59)
[2018-12-16 06:40] LABS: Band 26 % (5-11); Lymphocytes 15 % (21-51); MDiff Complete? YES; Metamyelocyte 1 % (0-0); Monocytes 5 % (0-10); Myelocyte 3 % (0-0); Neutrophil 50 % (42-75); Nucleated RBC 2 % (0)
--- NOTE | 2018-12-16 08:09 | RAD ---
SINGLE VIEW OF THE CHEST: COMPARISON: 12/15/2018. HISTORY: Ventilated patient with respiratory failure. FINDINGS: Single view of the chest shows a normal sized cardiomediastinal silhouette. There is no evidence of c onsolidation, mass, or pleural effusion. The bones are unremarkable. IMPRESSION: No evidence of acute cardiopulmonary disease. POS: [facility]
--- NOTE | 2018-12-16 08:16 | PDOC.PN ---
- Subjective Encounter Start Date: 12/16/18 Encounter Start Time: 08:11 Subjective: decreased abd discomfort - Objective Resuscitation Status - Order Detail: 12/12/18 23:56 Resuscitation Status Routine Resuscitation Status: FULL: Full Resuscitation Vital Signs & Weight: Vital Signs (12 hours) Temp 12/16/18 07:29 98.9 F 12/16/18 03:56 101.6 F H 12/16/18 00:00 100.4 F H 12/15/18 22:23 101.6 F H Weight Weight 192 lb 7.417 oz Most Recent Monitor Data Heart Rate from ECG 144 NIBP 118/77 NIBP BP-Mean 90 Respiration from ECG 30 SpO2 93 I&O: 12/15/18 12/16/18 12/17/18 06:59 06:59 06:59 Intake Total 1800 4060 Balance 1800 4060 Result Diagrams: 12/16/18 05:17 12/15/18 04:09 Additional Labs: Accuchecks 12/16/18 12/16/18 12/16/18 07:59 04:51 00:32 POC Glucose 232 H 233 H 215 H Radiology Reviewed by me: Yes (ct abd- suggest hemorrhagic component to pancreatis) Phys Exam - Physical Examination Neck: no JVD Respiratory: clear to auscultation bilateral Cardiovascular: RRR, no significant murmur Gastrointestinal: soft mild distention, pos BS, no guarding Musculoskeletal: edema present Dx/Plan (1) DKA, type 1 Code(s): E10.10 - TYPE 1 DIABETES MELLITUS WITH KETOACIDOSIS WITHOUT COMA Status: Acute Qualifiers: Diabetes mellitus complication detail: without coma Qualified Code(s): E10.10 - Type 1 diabetes mellitus with ketoacidosis without coma (2) Acute pancreatitis Code(s): K85.90 - ACUTE PANCREATITIS WITHOUT NECROSIS OR INFECTION, UNSP Status: Acute Qualifiers: Pancreatitis type: other (3) HTN (hypertension) Code(s): I10 - ESSENTIAL (PRIMARY) HYPERTENSION Status: Chronic Qualifiers: Hypertension type: essential hypertension Qualified Code(s): I10 - Essential (primary) hypertension (4) Positive test Code(s): Z32.01 - ENCOUNTER FOR TEST, RESULT POSITIVE Status: Ruled- out (5) Tachycardia with heart rate 141-160 beats per minute Code(s): R00.0 - TACHYCARDIA, UNSPECIFIED Status: Acute (6) Pleural effusion associated with pancreatitis Code(s): K85.90 - ACUTE PANCREATITIS WITHOUT NECROSIS OR INFECTION, UNSP; J91.8 - PLEURAL EFFUSION IN OTHER CONDITIONS CLASSIFIED ELSEWHERE Status: Acute (7) Anemia Code(s): D64.9 - ANEMIA, UNSPECIFIED Status: Acute Qualifiers: Anemia type: unspecified type Qualified Code(s): D64.9 - Anemia, unspecified - Plan serial cbc, bmp -: cont low fat diet -: cont accu/ss/ LA insulin -: expectant observatin -: transfuse if Hg < 7 * .
[2018-12-16] MEDS ORDERED: traMADol HCl 50 MG TAB PO PRN (08:28)
[2018-12-16] MEDS: metFORMIN 500 MG TAB PO SCH ×2 (08:31→18:58)
[2018-12-16] MEDS: Lisinopril 5 MG TAB PO SCH (08:32)
[2018-12-16] MEDS: Enoxaparin Sodium 40 MG/0.4 ML SYRINGE SC SCH (08:32)
[2018-12-16] MEDS: INSULIN GLARGINE SC SCH (08:32)
--- NOTE | 2018-12-16 08:32 | PRG ---
DATE OF SERVICE: 12/16/2018 SUBJECTIVE: This morning, she is better. She is still tacycardic. OBJECTIVE: VITAL SIGNS: Temperature 98, blood pressure 118/77 _resp 28 pulse 136. GENERAL: She is in no distress. Pain is much improved. CHEST: Decreased breath sounds without any wheezing. CARDIAC: Normal S1, S2 . No gallops. ABDOMEN: No masses. LABORATORY DATA: White count 11,000, H and H are 7 and 21, platelet count normal. Lytes are normal. Liver function is much improved. Lipase is elevated at 118, has decreased substantially. ASSESSMENT: 1. Severe necrotizing pancreatitis. 2. Bilateral pleural effusions secondary to pancreatitis. 3. Sinus tachycardia. PLAN: Continue present treatment. All cultures so far negative. Blood sugar is well controlled. We will follow while in the MICU. Job ID: [id number] MTDD
[2018-12-16 09:07] LABS: Anion Gap 16 mmol/L (10-20); BUN (Urea Nitrogen) Less than 4 mg/dL (7.0-18.7); Calc. Creatinine Clearance 294 mL/min (70-130); Calcium 7.1 mg/dL (7.8-10.44); Carbon Dioxide 17 mmol/L (22-29); Chloride 100 mmol/L (98-107); Estimated GFR-MDRD Greater than 90; Glucose 203 mg/dL (70-105); Potassium 3.6 mmol/L (3.5-5.1); Sodium 129 mmol/L (136-145)
--- NOTE | 2018-12-16 17:43 | PRG ---
DATE OF SERVICE: 12/16/2018 SUBJECTIVE: Ms. Garsia feels better today. She is eating solid diet without any problems. She had four bowel movements a day, two were had some formed and two were liquidy. She has had no nausea or vomiting. OBJECTIVE: VITAL SIGNS: Temperature 98.8, blood pressure 132/93, and pulse is in the 120s. GENERAL: She is in no acute distress. Alert and oriented x3. LUNGS: Clear to auscultation bilaterally. HEART: Tachycardic. S1 and S2. ABDOMEN: Soft, nontender, and nondistended. Bowel sounds are present. EXTREMITIES: No lower extremity edema. LABORATORY DATA: White blood cell count 11.2, hemoglobin 7.1, and platelets 150. Creatinine 0.4. IMPRESSION: 1. Severe acute pancreatitis. Clinically, she is improved and is tolerating a solid diet. 2. Hypertriglyceridemia. Now that she is back on solid stool. We will recheck her level tomorrow. 3. Anemia. CT scan did not show retroperitoneal bleed. Source of her anemia is not defined at this point. She has brown stool. No evidence of acute gastrointestinal bleed. RECOMMENDATIONS: 1. Continue low-fat diet. 2. Check triglyceride level in the morning. Job ID: [id number]
[2018-12-16] MEDS: Lorazepam 2 MG/ML VIAL SLOW IVP PRN (18:37)
[2018-12-17] MEDS: HumaLOG 300 UNITS/3 ML VIAL SC PRN ×7 (00:37→23:53)
[2018-12-17] MEDS: Meropenem 2 GM in Sodium Chloride 0.9% 100 ML IVPB SCH ×3 (05:08→21:46)
[2018-12-17 05:23] LABS: Anion Gap 14 mmol/L (10-20); BUN (Urea Nitrogen) Less than 4 mg/dL (7.0-18.7); Calc. Creatinine Clearance 230 mL/min (70-130); Calcium 7.6 mg/dL (7.8-10.44); Carbon Dioxide 22 mmol/L (22-29); Chloride 100 mmol/L (98-107); Estimated GFR-MDRD Greater than 90; Glucose 226 mg/dL (70-105); Potassium 3.8 mmol/L (3.5-5.1); Sodium 132 mmol/L (136-145)
[2018-12-17 05:29] LABS: Band 27 % (5-11); Hemoglobin 6.7 g/dL (12.0-16.0); Lymphocytes 19 % (21-51); MDiff Complete? YES; Mean Corpuscular HGB CONC 32.9 g/dL (32.0-36.0); Mean Corpuscular Hemoglobin 26.9 pg (27.0-31.0); Mean Corpuscular Volume 81.8 fL (78.0-98.0); Mean Platelet Volume 9.9 fL (7.4-10.4); Metamyelocyte 4 % (0-0); Monocytes 6 % (0-10); Neutrophil 43 % (42-75); Nucleated RBC 2 % (0); Platelet Count 168 thou/uL (130-400); Platelet Morphology Comment Appears Adequate; Reactive Lymphocytes 1 % (0-10); White Blood Cell (WBC) Count 13.2 thou/uL (4.8-10.8)
[2018-12-17] MEDS ORDERED: diphenhydrAMINE 25 MG CAP PO PRN (05:54)
[2018-12-17] MEDS ORDERED: Acetaminophen 500 MG TAB PO SCH (06:00)
[2018-12-17] MEDS ORDERED: Furosemide 20 MG/2 ML VIAL SLOW IVP SCH (06:00)
[2018-12-17] MEDS: D5 1/2 NS w/20 mEq KCL 1,000 ML IV SCH ×2 (06:13→13:46)
--- NOTE | 2018-12-17 08:37 | PDOC.PN ---
- Subjective Encounter Start Date: 12/17/18 Encounter Start Time: 08:34 Subjective: no adb pain, nausea - Objective Resuscitation Status - Order Detail: 12/12/18 23:56 Resuscitation Status Routine Resuscitation Status: FULL: Full Resuscitation Vital Signs & Weight: Vital Signs (12 hours) Temp 12/17/18 04:00 100.5 F H 12/16/18 23:51 100.8 F H Weight Weight 192 lb 7.417 oz Most Recent Monitor Data Heart Rate from ECG 136 NIBP 116/71 NIBP BP-Mean 86 Respiration from ECG 26 SpO2 98 I&O: 12/16/18 12/17/18 12/18/18 06:59 06:59 06:59 Intake Total 4060 Balance 4060 Result Diagrams: 12/17/18 04:42 12/17/18 04:42 Additional Labs: Accuchecks 12/16/18 12/16/18 12/15/18 16:11 11:37 06:07 POC Glucose 255 H 253 H 254 H Radiology Reviewed by me: No (echo, nl EF etc) Phys Exam - Physical Examination Neck: no JVD Respiratory: clear to auscultation bilateral Cardiovascular: RRR, no significant murmur Gastrointestinal: soft, positive bowel sounds Musculoskeletal: edema present Dx/Plan (1) DKA, type 1 Code(s): E10.10 - TYPE 1 DIABETES MELLITUS WITH KETOACIDOSIS WITHOUT COMA Status: Acute Qualifiers: Diabetes mellitus complication detail: without coma Qualified Code(s): E10.10 - Type 1 diabetes mellitus with ketoacidosis without coma (2) Acute pancreatitis Code(s): K85.90 - ACUTE PANCREATITIS WITHOUT NECROSIS OR INFECTION, UNSP Status: Acute Qualifiers: Pancreatitis type: other (3) HTN (hypertension) Code(s): I10 - ESSENTIAL (PRIMARY) HYPERTENSION Status: Chronic Qualifiers: Hypertension type: essential hypertension Qualified Code(s): I10 - Essential (primary) hypertension (4) Positive test Code(s): Z32.01 - ENCOUNTER FOR TEST, RESULT POSITIVE Status: Ruled- out (5) Tachycardia with heart rate 141-160 beats per minute Code(s): R00.0 - TACHYCARDIA, UNSPECIFIED Status: Acute (6) Pleural effusion associated with pancreatitis Code(s): K85.90 - ACUTE PANCREATITIS WITHOUT NECROSIS OR INFECTION, UNSP; J91.8 - PLEURAL EFFUSION IN OTHER CONDITIONS CLASSIFIED ELSEWHERE Status: Acute (7) Anemia Code(s): D64.9 - ANEMIA, UNSPECIFIED Status: Acute Qualifiers: Anemia type: unspecified type Qualified Code(s): D64.9 - Anemia, unspecified - Plan cont accu/ss/LYNN -: cont meropenem -: discuss with hand patcher * .
--- NOTE | 2018-12-17 09:09 | PRG ---
DATE OF SERVICE: 12/17/2018 SUBJECTIVE: This morning, she is awake, alert, responsive. She is still taching at 130. OBJECTIVE: VITAL SIGNS: Maximum temperature is 100, blood pressure 116/71, sats are 98% on room air, respirations 20. GENERAL: No distress. No abdominal pain. CHEST: Decreased breath sounds. No wheezing. CARDIAC: Normal S1, S2. No gallops. ABDOMEN: Soft. LABORATORY DATA: Lytes are better. Blood sugar 226. White count 63145, H and H 6.7 and 20, platelet count normal. Echocardiogram showed essentially normal function, normal size, tachycardic. ASSESSMENT: Pancreatitis, necrotizing; sinus tachycardia; bilateral pleural effusion; fever; anemia. PLAN: Continue present supportive care. Agree with transfusion of packed cells. Pulmonary/Critical Care will follow while in the MICU. Job ID: [id number]
[2018-12-17] MEDS: Lorazepam 2 MG/ML VIAL SLOW IVP PRN ×2 (10:03→20:31)
[2018-12-17] MEDS: Lisinopril 5 MG TAB PO SCH (10:19)
[2018-12-17] MEDS: Enoxaparin Sodium 40 MG/0.4 ML SYRINGE SC SCH (10:19)
[2018-12-17] MEDS: metFORMIN 500 MG TAB PO SCH ×2 (10:19→16:38)
[2018-12-17] MEDS: INSULIN GLARGINE SC SCH (10:20)
[2018-12-17 11:34] LABS: Bilirubin Negative (Negative); Blood, Urine Large (Negative); Clarity CLEAR (Clear); Glucose, Urine (Dipstick) >=1000 mg/dL (Negative); Leukocyte Negative (Negative); Nitrite Negative (Negative); Protein, Urine (Dipstick) Negative (Neg-Trace); Specific Gravity, Urine 1.016 (1.002-1.036); Urobilinogen 0.2 mg/dL (0.2-1.0)
[2018-12-17 11:41] LABS: Urine Culture Reflex No No
[2018-12-17] MEDS: Acetaminophen 325 MG TAB PO PRN (17:34)
--- NOTE | 2018-12-17 19:06 | PRG ---
DATE OF SERVICE: 12/17/2018 SUBJECTIVE: Ms. Garsia tolerated the solid supper without any problems. She is not having any nausea or abdominal pain. She had 2 liquidy stools today. She had blood transfusion started today; however, she developed fever during the transfusion, thought to be a transfusion reaction and was cut short. OBJECTIVE: VITAL SIGNS: Temperature 100.3, pulse 138, and blood pressure 123/64. GENERAL: She is in no acute distress. She is alert and oriented x3. LUNGS: Clear to auscultation bilaterally. HEART: Tachycardic S1 and S2. ABDOMEN: Soft and nontender. Bowel sounds are present. EXTREMITIES: No lower extremity edema. LABORATORY DATA: White blood cell count of 13.2, hemoglobin is 6.7 this morning, platelets 168. Creatinine 0.51. IMPRESSION: 1. Severe acute pancreatitis. CT scan showed possible area of necrosis. She has been tolerating a solid diet well and is having no nausea or vomiting. 2. Hypocalcemia. 3. Hypertriglyceridemia. This is believed to be the primary cause of the pancreatitis and may have been secondary to diabetic ketoacidosis. 4. Diabetic ketoacidosis. 5. Anemia. She has had no overt gastrointestinal bleeding. CT of the abdomen without contrast did not show an acute retroperitoneal bleed. There is some fluid with increased intensity around the pancreas. Her hemoglobin has been fairly stable over the last 3 days. 6. Fever. I would favor a source other than infected pancreatic necrosis; however, the treatment will be with meropenem, which she is anyway at this point. RECOMMENDATIONS: 1. Follow trend of her hemoglobin. She had a transfusion reaction with transfusion this morning. If her hemoglobin remains low, we may need to try repeat transfusion tomorrow morning. 2. Continue antibiotics. 3. Continue low-fat diet. 4. Again, this stool was negative for C. diff. We will follow the diarrhea clinically. I believe that is secondary to the antibiotics. Job ID: [id number]
[2018-12-18] MEDS: Zolpidem Tartrate 5 MG TAB PO PRN ×2 (00:24→20:07)
[2018-12-18] MEDS: Acetaminophen 325 MG TAB PO PRN ×4 (00:29→20:52)
[2018-12-18] MEDS ORDERED: Sodium Chloride 0.9% 500 ML IVPB SCH (01:00)
[2018-12-18] MEDS: D5 1/2 NS w/20 mEq KCL 1,000 ML IV SCH ×2 (02:42→17:24)
[2018-12-18] MEDS: HumaLOG 300 UNITS/3 ML VIAL SC PRN ×2 (04:16→08:12)
[2018-12-18] MEDS: Meropenem 2 GM in Sodium Chloride 0.9% 100 ML IVPB SCH ×2 (05:55→14:07)
[2018-12-18 06:30] LABS: Band 1 % (5-11); Hemoglobin 6.4 g/dL (12.0-16.0); Hypochromia SLIGHT = 6-15 cells (100X) (0-5/hpf); Lymphocytes 13 % (21-51); MDiff Complete? YES; Mean Corpuscular HGB CONC 31.9 g/dL (32.0-36.0); Mean Corpuscular Hemoglobin 26.4 pg (27.0-31.0); Mean Corpuscular Volume 82.8 fL (78.0-98.0); Mean Platelet Volume 10.2 fL (7.4-10.4); Monocytes 5 % (0-10); Neutrophil 81 % (42-75); Nucleated RBC 2 % (0); Platelet Count 206 thou/uL (130-400); Platelet Morphology Comment Appears Adequate; Polychromasia SLIGHT = 2-3 cells (100X) (0-2/hpf); RBC Distribution Width 14.3 % (11.5-14.5); White Blood Cell (WBC) Count 14.6 thou/uL (4.8-10.8)
[2018-12-18] MEDS: Ferrous Sulfate 325 MG TAB PO SCH ×2 (08:09→16:32)
[2018-12-18] MEDS: metFORMIN 500 MG TAB PO SCH (08:10)
[2018-12-18] MEDS: Lisinopril 5 MG TAB PO SCH (08:10)
[2018-12-18] MEDS: Enoxaparin Sodium 40 MG/0.4 ML SYRINGE SC SCH (08:10)
[2018-12-18] MEDS: INSULIN GLARGINE SC SCH (08:10)
[2018-12-18] MEDS ORDERED: Calcium Gluconate 100 MG/ML 10 ML IVPB SCH (11:45)
--- NOTE | 2018-12-18 11:46 | PDOC.PN ---
- Subjective Encounter Start Date: 12/18/18 Encounter Start Time: 11:42 Patient seen and examined, mother at bedside, no new issues or complaints, all questions answered. - Objective Resuscitation Status - Order Detail: 12/12/18 23:56 Resuscitation Status Routine Resuscitation Status: FULL: Full Resuscitation Vital Signs & Weight: Vital Signs (12 hours) Temp Pulse Resp BP BP Pulse Ox 12/18/18 08:10 131 H 117/71 12/18/18 08:07 100.0 F H 131 H 18 117/71 96 12/18/18 08:00 96 12/18/18 04:00 98.5 F 130 H 16 114/58 L 92 L 12/18/18 01:36 101.3 F H 136 H 18 92 L 12/18/18 01:35 101.3 F H 136 H 16 118/63 92 L 12/18/18 00:41 102.7 F H 12/17/18 23:43 102.9 F H 138 H 20 126/69 95 Weight Weight 192 lb 7.417 oz Most Recent Monitor Data Heart Rate from ECG 142 NIBP 126/79 NIBP BP-Mean 94 Respiration from ECG 29 SpO2 98 I&O: 12/17/18 12/18/18 12/19/18 06:59 06:59 06:59 Intake Total 1100 1800 Balance 1100 1800 Result Diagrams: 12/18/18 04:56 12/17/18 04:42 Additional Labs: Accuchecks 12/18/18 12/18/18 12/17/18 08:07 04:05 23:50 POC Glucose 206 H 220 H 203 H 12/17/18 12/17/18 12/17/18 19:35 16:14 11:32 POC Glucose 235 H 212 H 215 H 12/16/18 12/15/18 12/15/18 19:40 20:34 17:02 POC Glucose 233 H 258 H 236 H 12/15/18 10:46 POC Glucose 253 H Phys Exam - Physical Examination Constitutional: NAD obese HEENT: PERRLA, moist MMs, sclera anicteric, 2+ tonsils Neck: no nodes, no JVD, supple, full ROM Respiratory: no wheezing, no rales, no rhonchi Cardiovascular: RRR, no significant murmur, no rub, gallop Gastrointestinal: soft, non-tender, no distention, positive bowel sounds Musculoskeletal: pulses present, edema present (trace) Dx/Plan (1) Diabetes mellitus Code(s): E11.9 - TYPE 2 DIABETES MELLITUS WITHOUT COMPLICATIONS Status: Acute (2) Fever of undetermined origin Status: Acute (3) Acute pancreatitis Code(s): K85.90 - ACUTE PANCREATITIS WITHOUT NECROSIS OR INFECTION, UNSP Status: Acute Qualifiers: Pancreatitis type: other (4) Pleural effusion associated with pancreatitis Code(s): K85.90 - ACUTE PANCREATITIS WITHOUT NECROSIS OR INFECTION, UNSP; J91.8 - PLEURAL EFFUSION IN OTHER CONDITIONS CLASSIFIED ELSEWHERE Status: Acute (5) Tachycardia with heart rate 141-160 beats per minute Code(s): R00.0 - TACHYCARDIA, UNSPECIFIED Status: Acute (6) HTN (hypertension) Code(s): I10 - ESSENTIAL (PRIMARY) HYPERTENSION Status: Chronic Qualifiers: Hypertension type: essential hypertension Qualified Code(s): I10 - Essential (primary) hypertension (7) Hyperglycemia Code(s): R73.9 - HYPERGLYCEMIA, UNSPECIFIED Status: Acute - Plan * 2 g of calcium gluconate and then po calcium x 2 days for now * add 3 units of humalog with meals * labs in AM * consults to ID and obgyn for fever of unknown origin and adnexal mass along with conflicting test results * DC metformin * pelvic MRI * will check haptoglobin and LFTs * C-peptide level to see if she truly is a type I diabetic or not * check blood culture and urine culture * pain controlled * hold off on blood transfusion for now as the patient started to get blood yesterday and immediately had a fever of 102F, will await ID evaluation and may consider tylenol + benadryl + steroids if patient requires PRBC transfusion, patient has iron deficiency, started on PO iron pills, hold off on IV iron as she may have a blood pathogen which hasn't been detected yet * Echo shows no vegetations * case and plan d/w patient and mother at length, they understood and agreed with this plan.
[2018-12-18] MEDS ORDERED: HumaLOG 300 UNITS/3 ML VIAL SC SCH ×2 (12:00→17:00)
[2018-12-18] MEDS ORDERED: Calcium Gluconate 9.2 MEQ in Sodium Chloride 0.9% 100 ML IVPB SCH (12:30)
[2018-12-18] MEDS ORDERED: Gadobenate Dimeglumine 529 MG/1 ML (20ML VIAL) ONE (12:43)
--- NOTE | 2018-12-18 13:07 | PDOC.FPRHP ---
- History of Present Illness Chief Complaint: + qual Hcg, adnexal findings on CT History of Present Illness: This is an MAIL SORTER consult note Jessica is a 28 yo F who was admitted on 12/12 for DKA and developed a necrotizing pancreatitis. Today she denies any pain. She was able to eat a regular breakfast without N/V/D or abdominal pain. She states that she is currently on her period. Her menses is regular every 28 days and usually lasts about 5 days. The patient states that she is not using any control but denies sexual activity. She denies history of STIs. She denies vaginal discharge or pain. There is a family history of ovarian cancer on paternal side. - Allergies/Adverse Reactions Allergies Allergy/AdvReac Type Severity Reaction Status Date / Time No Known Allergies Allergy Verified 04/22/13 19:32 - Home Medications Medication Instructions Recorded Confirmed Type metFORMIN [Glucophage] 500 mg PO BID-WM #0 tab 06/10/16 12/13/18 Rx Insulin Detemir [Levemir] 15 unit SQ DAILY 12/13/18 12/13/18 History Lisinopril [Zestril] 5 mg PO DAILY 12/13/18 12/13/18 History - History PMHx: DM I vs II, patient not sure of type, diagnosed 4 years ago PSHx: appendectomy, tonsillectomy FHx: ovarian cancer affecting great-aunt, grandmother with lymphoma Social: denies smoking, alcohol, or drugs - Review of Systems General: reports: fever/chills, night sweats. denies: fatigue Eyes: denies: vision changes ENT: denies: nasal congestion, rhinorrhea Respiratory: denies: cough, congestion, shortness of breath Cardiovascular: denies: chest pain, palpitation, edema Gastrointestinal: denies: nausea, vomiting, diarrhea, constipation, abdominal pain, GI bleeding Genitourinary: denies: dysuria, polyuria Skin: denies: rashes, lesions, jaundice Musculoskeletal: denies: pain, tenderness Neurological: denies: numbness, syncope - Vital signs BP: 112/58 HR: 122 RR: 20 Tmax: 97.9 Pox: 97% on RA Wt: 87.3kg - Physical Exam Constitutional: NAD, awake, alert and oriented, well developed HEENT: normocephalic and atraumatic, PERRLA, EOMI Neck: supple Heart: RRR, normal S1/S2, no murmurs/rubs/gallops, pulses present, no edema Lungs: CTAB, no respiratory distress, good air movement, no rales/rhonchi, no wheezing Abdomen: soft, non-tender, bowel sounds present Musculoskeletal: normal structure, normal tone, ROM grossly normal Neurological: no focal deficit, CN II-XII intact Skin: no rash/lesions, good turgor, capillary refill <2 seconds Heme/Lymphatic: no unusual bruising or bleeding FMR H&P: Results - Labs Result Diagrams: 12/20/18 05:15 12/20/18 05:15 Lab results: WBC 14.6 thou/uL (4.8-10.8) H 12/18/18 04:56 Hgb 6.4 g/dL (12.0-16.0) L 12/18/18 04:56 Hct 19.9 % (36.0-47.0) L 12/18/18 04:56 MCV 82.8 fL (78.0-98.0) 12/18/18 04:56 Plt Count 206 thou/uL (130-400) 12/18/18 04:56 Neutrophils % 77.5 % (42.0-75.0) H 12/16/18 05:17 Band Neuts % (Manual) 1 % (5-11) L 12/18/18 04:56 VBG pH 7.48 (7.32-7.43) H 12/13/18 03:06 VBG pCO2 20.5 mmHg (42-51) L 12/13/18 03:06 VBG pO2 82.3 mmHg (35-45) H 12/13/18 03:06 Sodium 132 mmol/L (136-145) L 12/17/18 04:42 Potassium 3.8 mmol/L (3.5-5.1) 12/17/18 04:42 Chloride 100 mmol/L (98-107) 12/17/18 04:42 Carbon Dioxide 22 mmol/L (22-29) 12/17/18 04:42 BUN Less than 4 mg/dL (7.0-18.7) L 12/17/18 04:42 Creatinine 0.51 mg/dL (0.6-1.1) L 12/17/18 04:42 Glucose 226 mg/dL (70-105) H 12/17/18 04:42 Lactic Acid 1.6 mmol/L (0.5-2.2) 12/13/18 03:20 Calcium 7.6 mg/dL (7.8-10.44) L 12/17/18 04:42 Total Bilirubin 1.2 mg/dL (0.2-1.2) 12/16/18 05:17 AST 42 U/L (5-34) H 12/16/18 05:17 ALT 24 U/L (8-55) 12/16/18 05:17 Alkaline Phosphatase 88 U/L (40-150) 12/16/18 05:17 Creatine Kinase 138 U/L (29-168) 12/12/18 21:18 Serum Total Protein 5.6 g/dL (6.0-8.3) L 12/16/18 05:17 Albumin 2.7 g/dL (3.5-5.0) L 12/16/18 05:17 Lipase 118 U/L (8-78) H 12/16/18 05:17 Urine Ketones 80 mg/dL (Negative) H 12/17/18 10:40 Urine Blood Large (Negative) H 12/17/18 10:40 Urine Nitrite Negative (Negative) 12/17/18 10:40 Ur Leukocyte Esterase Negative (Negative) 12/17/18 10:40 Urine RBC 4-6 HPF (0-3) 12/12/18 22:10 Urine WBC 0-3 HPF (0-3) 12/12/18 22:10 Ur Squamous Epith Cells 4-6 HPF (0-3) H 12/12/18 22:10 Urine Bacteria None Seen HPF (None Seen) 12/12/18 22:10 FMR H&P: A/P - Problem List (1) Acute pancreatitis Current Visit: Yes Status: Acute Code(s): K85.90 - ACUTE PANCREATITIS WITHOUT NECROSIS OR INFECTION, UNSP Qualifiers: Pancreatitis type: other Acute pancreatitis complication: uninfected necrosis Qualified Code(s): K85.81 - Other acute pancreatitis with uninfected necrosis Comment: Likely due to hypertriglyceridemia, possibly biliary source, needs U/S gallbladder after all inflammatory changes resolved (2) Anemia Current Visit: Yes Status: Acute Code(s): D64.9 - ANEMIA, UNSPECIFIED Qualifiers: Anemia type: unspecified type Qualified Code(s): D64.9 - Anemia, unspecified Comment: improved after transfusion, keep above 7 (3) Diabetes mellitus Current Visit: Yes Status: Acute Code(s): E11.9 - TYPE 2 DIABETES MELLITUS WITHOUT COMPLICATIONS (4) Fever of undetermined origin Current Visit: Yes Status: Resolved Comment: likley due to inflammation from pancreatitis, holding on antibiotics for now (5) HTN (hypertension) Current Visit: Yes Status: Chronic Code(s): I10 - ESSENTIAL (PRIMARY) HYPERTENSION Qualifiers: Hypertension type: essential hypertension Qualified Code(s): I10 - Essential (primary) hypertension (6) Positive test Current Visit: Yes Status: Ruled-out Code(s): Z32.01 - ENCOUNTER FOR TEST, RESULT POSITIVE FMR H&P: Upper Level - Plan Date/Time: 12/18/18 1300 # Incidentaloma affecting Rt Adnexa on CT - hyperdense region noted on US, CT, and MRI - no pain, discharge, no hx of STIs - likely dermoid, consider hydrosalpinx - no evidence of hard mass on pelvic exam - patient is having her period, started 3 days ago - no first degree relatives w/ breast or ovarian cancer - recommend f/u pelvic US in 6 wks outpt with MAIL SORTER f/u # Positive Qual test - x1 - quantitative test neg x2 - will repeat today, likely false positive Addendum - Attending - Attending Attestation Date/Time: 12/20/18 0853 I personally evaluated the patient and discussed the management with Dr. Caldwell I agree with the History, Examination, Assessment and Plan documented above with any addition or exceptions noted below. exam performed by myself. cervix and uterus nontender to palpation. No palpable mass in left or right adnexa on bimanual exam. No pain elicited on exam. 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 Recommend outpatient follow up with [facility] and repeat u/s in 6wks for this adnexal mass. We have repeated the qualitative hcg which has returned negative which is consistent with the quantatative test. The previous positive test is a false positive test and needs no further eval.
--- NOTE | 2018-12-18 13:24 | PRG ---
DATE OF SERVICE: 12/18/2018 OBJECTIVE: VITAL SIGNS: This morning, her temperature was 100.5, pulse was 122, respirations 20, sats are on room air, blood pressure 112/58. GENERAL: No pain. No discomfort. CHEST: Decreased breath sounds without any wheezing. CARDIAC: Sinus tach. ABDOMEN: Soft. LABORATORY DATA: H and H are 6.4 and 19, platelet count is 206. IMAGING STUDIES: MRI of the pelvis was done, awaiting final report. IMPRESSION: Severe pancreatitis, bilateral pleural effusions secondary to pancreatitis, resting tachycardia, normal ejection fraction. PLAN: Continue antibiotics. Supportive care. Job ID: [id number]
--- NOTE | 2018-12-18 13:29 | MRI ---
PELVIC MRI: COMPARISON: Pelvic ultrasound 12/13/2018. HISTORY: Right adnexal abnormal seen on prior ultrasound. TECHNIQUE: Multiplanar, multisequence MR images were obtained of the pelvis without and with IV contrast. FINDINGS: The uterus is normal in appearance without focal abnormality. The junctional zone of the uterus is u pper limits of normal in thickness. There is a moderate amount of free fluid in the pelvis. The left ovary is normal in appearance witho ut focal abnormality. The right ovary is larger than the left. In the center of the right ovary the re is a 2.7 cm round focus of high T1 signal without significant enhancement which may represent a he morrhagic follicle/cyst. Adjacent to the right ovary there is a region measuring 6.8 cm in length de monstrating high T2 and low T1 signal without significant enhancement. This may represent an irregul ar cyst emanating from the right ovary. No pelvic adenopathy is seen. No marrow signal abnormality is present. IMPRESSION: The patient has a lesion emanating from the ovary which may represent an irregular cyst. This could also represent a cyst that has recently ruptured undergoing involution. A repeat pelvic ultrasound i n 6 weeks is recommended to ensure resolution. POS: CHELSI
[2018-12-18 14:14] LABS: BHCG - Serum Negative (NEGATIVE); Pregs Control Background? CLEAR/WHITE (CLR/WHITE); Pregs Control Bar Appear? YES (CONTROL BAR)
[2018-12-18 14:26] LABS: ALT (SGPT) 18 U/L (8-55); AST (SGOT) 24 U/L (5-34); Albumin 2.7 g/dL (3.5-5.0); Alkaline Phosphatase 92 U/L (40-150); Bilirubin, Direct 0.3 mg/dL (0.1-0.3); Bilirubin, Total 0.6 mg/dL (0.2-1.2)
--- NOTE | 2018-12-18 15:06 | PRG ---
DATE OF SERVICE: 12/18/2018 SUBJECTIVE: Ms. Garsia is tolerating a solid diet. She has early satiety, but no nausea or vomiting. No abdominal pain. She did spike a fever again earlier this morning. OBJECTIVE: VITAL SIGNS: Temperature is 98.4. Temperature at 1:30 this morning was 101.3 and midnight was 102.9, pulse is 122, blood pressure 112/58. GENERAL: She is in no acute distress. Alert and oriented x3. LUNGS: Clear to auscultation bilaterally. HEART: Tachycardic. S1 and S2 without murmur. ABDOMEN: Soft, nontender, nondistended. Bowel sounds are present. EXTREMITIES: No lower extremity edema. LABORATORY DATA: White blood cell count 14.6, hemoglobin 6.4, platelets 206. Bilirubin 0.6, AST 24, ALT 18, alkaline phosphatase 92. IMPRESSION: 1. Severe acute pancreatitis with evidence of necrosis by the previous contrast enhanced CT scan. She is tolerating a solid diet well and has no abdominal pain, nausea or vomiting. 2. Hypocalcemia. 3. Hypertriglyceridemia. This is the primary cause of the pancreatitis. 4. Diabetic ketoacidosis, improved. 5. Anemia. Source of the anemia was not identified, however, some bleeding around the pancreas is the possibility. She did not have any obvious acute bleed based on the CT in the retroperitoneum. 6. Fever. If she did have any bleeding into necrotic pancreatic bed, this would be a set up potentially for infection. Again, I do not think that the anemia is likely from bleeding around the pancreas. Infected pancreatic necrosis, is in consideration that she is on meropenem. Fungal infection can also complicate the pancreas. ID has been consulted as well. We need to continue to consider sources other than the pancreas, for the fever as well. RECOMMENDATIONS: 1. Her diarrhea is improved. There is no evidence of C. diff at this point. 2. Continue meropenem. 3. Low-fat diet. 4. Check a triglyceride level in the morning to see how she is responding now that she is back on a solid diet. Job ID: [id number]
--- NOTE | 2018-12-18 16:24 | CON ---
DATE OF CONSULTATION: 12/18/2018 REASON FOR CONSULTATION: Pancreatitis with fever. HISTORY OF PRESENT ILLNESS: A 28-year-old, who was admitted in 2016 with nausea and vomiting, mid abdominal pain. This was of acute onset and at that time, her lipase was somewhat elevated 130 and the amylase was within normal limits at 60. She had a HIDA scan which did not show obstruction, but she did have a distended gallbladder with poor contractility. She improved with conservative management and was discharged and now presents with nausea, vomiting, and pain in a bandlike fashion across the upper abdomen with progression over the past few days before admission. She was found to be in DKA on admission and she had elevated lipase and amylase and had CT findings consistent with pancreatitis with severe changes in extensive edema and fluid in peripancreatic location tracking along the left pericolic gutter. An MRI of the pelvis was done because of cyst in the ovary, but no other abnormalities noted. Currently, she is awake, appears in no distress. Pain has improved quite significantly. She is able to eat, had a bowel movement. Voiding without difficulty. No headaches. No visual symptoms. No respiratory symptoms. Coughing a little bit sometimes. No chest pain. No back pain. PAST MEDICAL HISTORY: Obesity, type 1 diabetes, previous episode of pancreatitis which was milder than this, acalculous cholecystitis by history. ALLERGIES: NONE. PAST SURGICAL HISTORY: Appendectomy, tonsillectomy. SOCIAL HISTORY: Drinks occasionally. No smoking history. CURRENT MEDICATIONS: 1. Dextrose. 2. Lovenox. 3. Glucagon. 4. Insulin. 5. Magnesium. 6. Meropenem. PHYSICAL EXAMINATION: VITAL SIGNS: T-max 103 on December 15, then 102.7, BP 112/58, pulse 122, respirations 20, O2 saturation 97%. GENERAL: Appears in no distress. SKIN: Normal. She has a peripheral IV access with the midline. HEENT: No lymphadenopathy. Ocular movements conjugate. Oral cavity normal. NECK: Supple. LUNGS: Symmetric, clear breath sounds. CARDIAC: S1, S2. Regular rate. No S3 or S4. ABDOMEN: Soft with mild tenderness in the upper abdominal area. No ascites. No bladder distention. MUSCULOSKELETAL: No joint inflammatory activity. NEURO: Nonfocal including cognitive function. LABORATORY DATA: Liver profile normal. Her lipase is down to 118 from admission and creatinine is 0.51. Sodium 132, potassium 3.8. White cell count is at 14.6 , hemoglobin 6.4, platelets 206 with 81% neutrophils. Microbiology with negative 2 sets of blood cultures, influenza negative, Clostridium diff negative. ASSESSMENT: Type 1 diabetes with diabetic ketoacidosis and acute pancreatitis, probably from gallbladder source. Even in the absence of gallstones, probably has a biliary characteristics that let to the pancreatitis due to crystals associated inflammatory change. The fevers most likely due to severity of pancreatitis and unlikely to be related to an infectious process. We would recommend discontinuation of antimicrobials at this point in time, monitor clinically. Randomized trials do not demonstrate benefit of prophylactic antimicrobial tx in cases of severe pancreatitis. Job ID: [id number] [facility]
[2018-12-18] MEDS: Calcium Carbonate 600 MG TAB PO SCH (20:52)
[2018-12-18] MEDS: Ondansetron PF 4 MG/2 ML Vial IVP PRN (21:53)
[2018-12-19] MEDS: Acetaminophen 325 MG TAB PO PRN ×3 (00:22→13:30)
[2018-12-19] MEDS: Ondansetron PF 4 MG/2 ML Vial IVP PRN (03:39)
[2018-12-19] MEDS: D5 1/2 NS w/20 mEq KCL 1,000 ML IV SCH ×3 (03:40→22:07)
[2018-12-19 06:43] LABS: #Basophils 0.1 thou/uL (0.0-0.2); #Eosinphils 0.1 thou/uL (0.0-0.7); #Monocytes 0.7 thou/uL (0.11-0.59); #Neutrophils 9.7 thou/uL (1.40-6.50); %Basophils 0.9 % (0.0-1.0); %Eosinophils 0.4 % (0.0-10.0); %Lymphocytes 15.7 % (21.0-51.0); %Monocytes 5.5 % (0.0-10.0); %Neutrophils 77.5 % (42.0-75.0); Mean Corpuscular HGB CONC 32.4 g/dL (32.0-36.0); Mean Corpuscular Hemoglobin 26.8 pg (27.0-31.0); Mean Corpuscular Volume 82.6 fL (78.0-98.0); Mean Platelet Volume 10.2 fL (7.4-10.4); Platelet Count 197 thou/uL (130-400); RBC Distribution Width 14.6 % (11.5-14.5); Red Blood Cell (RBC) Count 2.22 mill/uL (4.20-5.40); White Blood Cell (WBC) Count 12.6 thou/uL (4.8-10.8)
[2018-12-19 06:45] LABS: Anion Gap 13 mmol/L (10-20); BUN (Urea Nitrogen) Less than 4 mg/dL (7.0-18.7); Calc. Creatinine Clearance 245 mL/min (70-130); Carbon Dioxide 24 mmol/L (22-29); Chloride 102 mmol/L (98-107); Estimated GFR-MDRD Greater than 90; Glucose 224 mg/dL (70-105); Potassium 3.7 mmol/L (3.5-5.1); Sodium 135 mmol/L (136-145)
[2018-12-19] MEDS ORDERED: Promethazine HCl 25 MG/ML VIAL SLOW IVP SCH (06:45)
[2018-12-19] MEDS ORDERED: HumaLOG 300 UNITS/3 ML VIAL SC SCH (07:39)
[2018-12-19] MEDS: Ferrous Sulfate 325 MG TAB PO SCH ×2 (08:11→17:10)
[2018-12-19] MEDS: Lisinopril 5 MG TAB PO SCH (08:11)
[2018-12-19] MEDS: Enoxaparin Sodium 40 MG/0.4 ML SYRINGE SC SCH (08:12)
[2018-12-19] MEDS: Calcium Carbonate 600 MG TAB PO SCH ×2 (08:12→21:00)
[2018-12-19] MEDS: INSULIN GLARGINE SC SCH (08:25)
[2018-12-19] MEDS: HumaLOG 300 UNITS/3 ML VIAL SC SCH ×3 (08:25→18:00)
[2018-12-19] MEDS ORDERED: diphenhydrAMINE 12.5 MG/5 ML UDCUP PO SCH (12:18)
--- NOTE | 2018-12-19 12:38 | PRG ---
DATE OF SERVICE: 12/19/2018 SUBJECTIVE: Nupur Garsia is a 28-year-old female. This morning, she is better. She is weak. OBJECTIVE: VITAL SIGNS: Saturations are 97% on room air, respiratory rate 18, temperature 99, pulse 120, and blood pressure 111/73. CHEST: No wheezing or crackles. CARDIAC: Sinus tach. ABDOMEN: Soft. LABORATORY DATA: Hemoglobin and hematocrit are 6 and 18, platelet count is normal. Lytes are normal. Apparently, she had some kind of reaction to transfusion. IMPRESSION: 1. Severe pancreatitis. 2. Anemia, etiology unclear. PLAN: Continue present treatment as per GI. She probably needs some transfusion to keep her hemoglobins at least above 8. Pulmonary will follow at a distance. Please call if needed. Job ID: [id number]
--- NOTE | 2018-12-19 12:45 | PRG ---
DATE OF SERVICE: 12/19/2018 SUBJECTIVE: Ms. Garsia had one episode of vomiting last night, but no persistent nausea after that. She has otherwise been tolerating a solid diet. She has no abdominal pain. OBJECTIVE: VITAL SIGNS: Maximum temperature was yesterday afternoon of 102.9, current temperature 99.2, pulse 120, and blood pressure 111/73. GENERAL: She is in no acute distress. She is alert and oriented x3. LUNGS: Clear to auscultation bilaterally. HEART: Tachycardic, S1 and S2. ABDOMEN: Soft, nontender, and nondistended. Bowel sounds are present. EXTREMITIES: No lower extremity edema. LABORATORY DATA: White blood cell count 12.6, hemoglobin 6.0, and platelets 197. Creatinine 0.48, triglycerides 219. IMPRESSION: 1. Acute pancreatitis. This appears to be a severe necrotizing pancreatitis with complications of pleural effusion and associated diabetic ketoacidosis. She most likely has the pancreatitis related to the hypertriglyceridemia with triglycerides over 2000. She had a normal ALT, normal alkaline phosphatase, and normal bilirubin with the onset of the pancreatitis. Her ALT was mildly elevated. Previously, no stones in the gallbladder. However, she did have a reduced ejection fraction a couple of years ago when she was admitted. Still a biliary source is possible, and after resolution of the acute inflammatory change of the pancreas, followup ultrasound will be indicated and further consideration for cholecystectomy can be considered. 2. Recurrent fever and elevated white blood cell count. This was evaluated by Dr. Gutiérrez. It is felt that the fever and white count are more likely due to the pancreatitis than acute infectious process. The fevers all started earlier than would be expected for infected pancreatic necrosis. She does not clinically appear septic or to have decompensation to suggest infected pancreatic necrosis. I would hold off FNA of the pancreatic bed. We will follow this clinically along with Infectious Disease recommendations. 3. Anemia without obvious overt blood loss. She had some acute febrile episode during the previous attempted blood transfusion that was attributed to transfusion reaction. We will try a repeat transfusion now. 4. Diabetic ketoacidosis, improved. RECOMMENDATIONS: 1. Continue low-fat diet. 2. Transfusion today. 3. Ultrasound of the gallbladder. However, this will be more helpful after more time for improvement in the inflammatory change from the pancreatitis. Job ID: [id number]
--- NOTE | 2018-12-19 13:10 | PDOC.PN ---
- Subjective Encounter Start Date: 12/19/18 Encounter Start Time: 13:08 Patient seen and examined, no new issues or concerns, mother at bedside, all questions answered. - Objective Resuscitation Status - Order Detail: 12/12/18 23:56 Resuscitation Status Routine Resuscitation Status: FULL: Full Resuscitation Vital Signs & Weight: Vital Signs (12 hours) Temp Pulse Resp BP BP BP Pulse Ox 12/19/18 11:40 99.2 F 120 H 18 111/73 96 12/19/18 08:11 125 H 12/19/18 08:08 99.8 F H 125 H 18 115/62 100 12/19/18 08:00 100 12/19/18 03:44 98.0 F 118 H 16 114/62 98 Weight Weight 192 lb 7.417 oz Most Recent Monitor Data Heart Rate from ECG 142 NIBP 126/79 NIBP BP-Mean 94 Respiration from ECG 29 SpO2 98 I&O: 12/18/18 12/19/18 12/20/18 06:59 06:59 06:59 Intake Total 1100 3432 1440 Output Total 50 Balance 1100 3382 1440 Result Diagrams: 12/19/18 06:29 12/19/18 06:29 Additional Labs: Accuchecks 12/19/18 12/19/18 12/19/18 11:33 08:04 03:42 POC Glucose 238 H 234 H 241 H 12/19/18 12/18/18 12/18/18 00:23 20:03 16:22 POC Glucose 254 H 258 H 228 H Phys Exam - Physical Examination Constitutional: NAD obese HEENT: PERRLA, moist MMs, sclera anicteric Neck: no nodes, no JVD, supple Respiratory: no wheezing, no rales, no rhonchi Cardiovascular: RRR, no significant murmur, no rub Gastrointestinal: soft, no distention, positive bowel sounds mild tenderness to palpation Musculoskeletal: pulses present, edema present Dx/Plan (1) Diabetes mellitus Code(s): E11.9 - TYPE 2 DIABETES MELLITUS WITHOUT COMPLICATIONS Status: Acute (2) Fever of undetermined origin Status: Acute (3) Acute pancreatitis Code(s): K85.90 - ACUTE PANCREATITIS WITHOUT NECROSIS OR INFECTION, UNSP Status: Acute Qualifiers: Pancreatitis type: other (4) Pleural effusion associated with pancreatitis Code(s): K85.90 - ACUTE PANCREATITIS WITHOUT NECROSIS OR INFECTION, UNSP; J91.8 - PLEURAL EFFUSION IN OTHER CONDITIONS CLASSIFIED ELSEWHERE Status: Acute (5) Tachycardia with heart rate 141-160 beats per minute Code(s): R00.0 - TACHYCARDIA, UNSPECIFIED Status: Acute (6) HTN (hypertension) Code(s): I10 - ESSENTIAL (PRIMARY) HYPERTENSION Status: Chronic Qualifiers: Hypertension type: essential hypertension Qualified Code(s): I10 - Essential (primary) hypertension (7) Hyperglycemia Code(s): R73.9 - HYPERGLYCEMIA, UNSPECIFIED Status: Acute - Plan * Triglyceride induced pancreatitis with necrosis, DKA and further inflammatory processes likely causing fevers, monitor off abx for now * continues to have fever, will monitor * ID/GI/Pulm following * attempt blood transfusion again today, premedication with tylenol/benadryl/ solumedrol * overal prognosis is guarded * labs in AM * case and plan d/w patient and mother at length, they understand and agree with this plan
[2018-12-19] MEDS ORDERED: diphenhydrAMINE 50 MG/ML VIAL IVP SCH (13:15)
[2018-12-19] MEDS ORDERED: methylPREDNISolone Sod Succ 40 MG VIAL IVP SCH (13:15)
[2018-12-19] MEDS: HumaLOG 300 UNITS/3 ML VIAL SC PRN (21:00)
[2018-12-20] MEDS: Zolpidem Tartrate 5 MG TAB PO PRN (00:39)
[2018-12-20] MEDS: D5 1/2 NS w/20 mEq KCL 1,000 ML IV SCH ×2 (00:40→11:38)
[2018-12-20 05:38] LABS: #Basophils 0.1 thou/uL (0.0-0.2); #Lymphocytes 1.4 thou/uL (1.20-3.40); #Monocytes 0.6 thou/uL (0.11-0.59); #Neutrophils 10.2 thou/uL (1.40-6.50); %Basophils 1.2 % (0.0-1.0); %Eosinophils 0.4 % (0.0-10.0); %Lymphocytes 11.3 % (21.0-51.0); %Monocytes 4.9 % (0.0-10.0); %Neutrophils 82.2 % (42.0-75.0); Hemoglobin 7.2 g/dL (12.0-16.0); Mean Corpuscular HGB CONC 32.5 g/dL (32.0-36.0); Mean Corpuscular Volume 83.1 fL (78.0-98.0); Mean Platelet Volume 10.6 fL (7.4-10.4); Platelet Count 195 thou/uL (130-400); RBC Distribution Width 14.1 % (11.5-14.5); Red Blood Cell (RBC) Count 2.68 mill/uL (4.20-5.40); White Blood Cell (WBC) Count 12.4 thou/uL (4.8-10.8)
[2018-12-20 05:54] LABS: ALT (SGPT) 16 U/L (8-55); AST (SGOT) 19 U/L (5-34); Albumin 2.5 g/dL (3.5-5.0); Alkaline Phosphatase 80 U/L (40-150); Anion Gap 16 mmol/L (10-20); BUN (Urea Nitrogen) 7 mg/dL (7.0-18.7); Bilirubin, Total 0.5 mg/dL (0.2-1.2); Calc. Creatinine Clearance 230 mL/min (70-130); Calcium 8.5 mg/dL (7.8-10.44); Carbon Dioxide 20 mmol/L (22-29); Chloride 102 mmol/L (98-107); Estimated GFR-MDRD Greater than 90; Globulin 3.2 g/dL (2.4-3.5); Glucose 273 mg/dL (70-105); Potassium 4.4 mmol/L (3.5-5.1); Protein, Total 5.7 g/dL (6.0-8.3); Sodium 134 mmol/L (136-145)
--- NOTE | 2018-12-20 08:05 | PDOC.PN ---
- Subjective Encounter Start Date: 12/20/18 Encounter Start Time: 10:00 Subjective: Patient denies any current complaints. All abdominal pain -: resolved. No more N/V. Tolerating full diet. No more fever. - Objective Resuscitation Status - Order Detail: 12/12/18 23:56 Resuscitation Status Routine Resuscitation Status: FULL: Full Resuscitation MAR Reviewed: Yes Vital Signs & Weight: Vital Signs (12 hours) Temp Pulse Resp BP Pulse Ox 12/20/18 04:18 98.3 F 105 H 16 111/66 95 12/20/18 00:17 98.1 F 119 H 18 118/62 95 12/19/18 21:10 97 Weight Weight 192 lb 7.417 oz Most Recent Monitor Data Heart Rate from ECG 142 NIBP 126/79 NIBP BP-Mean 94 Respiration from ECG 29 SpO2 98 I&O: 12/19/18 12/20/18 12/21/18 06:59 06:59 06:59 Intake Total 3432 4690 Output Total 50 Balance 3382 4690 Result Diagrams: 12/20/18 05:15 12/20/18 05:15 Additional Labs: Accuchecks 12/20/18 12/20/18 12/19/18 04:07 00:12 20:03 POC Glucose 266 H 253 H 335 H 12/19/18 12/19/18 12/19/18 16:02 11:33 08:04 POC Glucose 216 H 238 H 234 H Phys Exam - Physical Examination Constitutional: NAD HEENT: moist MMs Respiratory: no wheezing, no rales, no rhonchi Cardiovascular: RRR, no significant murmur Gastrointestinal: soft, positive bowel sounds Neurological: non-focal, moves all 4 limbs Psychiatric: normal affect, A&O x 3 Dx/Plan (1) Acute pancreatitis Code(s): K85.90 - ACUTE PANCREATITIS WITHOUT NECROSIS OR INFECTION, UNSP Status: Acute Qualifiers: Pancreatitis type: other Acute pancreatitis complication: uninfected necrosis Qualified Code(s): K85.81 - Other acute pancreatitis with uninfected necrosis Comment: Likely due to hypertriglyceridemia, possibly biliary source, needs U/S gallbladder after all inflammatory changes resolved (2) Pleural effusion associated with pancreatitis Code(s): K85.90 - ACUTE PANCREATITIS WITHOUT NECROSIS OR INFECTION, UNSP; J91.8 - PLEURAL EFFUSION IN OTHER CONDITIONS CLASSIFIED ELSEWHERE Status: Acute (3) Tachycardia with heart rate 141-160 beats per minute Code(s): R00.0 - TACHYCARDIA, UNSPECIFIED Status: Acute Comment: improving, likely due to pancreatitis (4) Fever of undetermined origin Status: Resolved Comment: likley due to inflammation from pancreatitis, holding on antibiotics for now (5) Hypertriglyceridemia Code(s): E78.1 - PURE HYPERGLYCERIDEMIA Status: Acute (6) DKA, type 1 Code(s): E10.10 - TYPE 1 DIABETES MELLITUS WITH KETOACIDOSIS WITHOUT COMA Status: Chronic Qualifiers: Diabetes mellitus complication detail: without coma Qualified Code(s): E10.10 - Type 1 diabetes mellitus with ketoacidosis without coma (7) HTN (hypertension) Code(s): I10 - ESSENTIAL (PRIMARY) HYPERTENSION Status: Chronic Qualifiers: Hypertension type: essential hypertension Qualified Code(s): I10 - Essential (primary) hypertension (8) Positive test Code(s): Z32.01 - ENCOUNTER FOR TEST, RESULT POSITIVE Status: Ruled- out (9) Adnexal mass Code(s): N94.9 - UNSP COND ASSOC W FEMALE GENITAL ORGANS AND MENSTRUAL CYCLE Status: Acute Comment: right sided, with hyperdense region, likely dermoid, needs repeat U/S by medical records supervisor in 6 weeks (10) Anemia Code(s): D64.9 - ANEMIA, UNSPECIFIED Status: Acute Qualifiers: Anemia type: unspecified type Qualified Code(s): D64.9 - Anemia, unspecified Comment: improved after transfusion, keep above 7 - Plan cont current plan of care, DVT proph w/SCDs Home when ok with GI. * . - Discharge Day Encounter end time: 10:10
[2018-12-20] MEDS: Ferrous Sulfate 325 MG TAB PO SCH ×2 (09:06→16:23)
[2018-12-20] MEDS: Enoxaparin Sodium 40 MG/0.4 ML SYRINGE SC SCH (09:06)
[2018-12-20] MEDS: Lisinopril 5 MG TAB PO SCH (09:07)
[2018-12-20] MEDS: INSULIN GLARGINE SC SCH (09:07)
[2018-12-20] MEDS: HumaLOG 300 UNITS/3 ML VIAL SC SCH ×3 (09:08→16:23)
[2018-12-20] MEDS: HumaLOG 300 UNITS/3 ML VIAL SC PRN ×2 (11:37→21:08)
[2018-12-20] MEDS ORDERED: diphenhydrAMINE 50 MG/ML VIAL IVP SCH (12:00)
--- NOTE | 2018-12-20 12:17 | PRG ---
DATE OF SERVICE: 12/20/2018 SUBJECTIVE: Ms. Garsia feels much better after having received blood transfusion yesterday. She is tolerating an oral diet. She has no abdominal pain. OBJECTIVE: VITAL SIGNS: Temperature 97.3. She has remained afebrile for over 24 hours now. Pulse 108, blood pressure 121/67. GENERAL: She is in no acute distress. Alert and oriented x3. LUNGS: Clear to auscultation bilaterally. HEART: Tachycardic S1, S2. ABDOMEN: Soft, nontender, and nondistended. Bowel sounds are present. EXTREMITIES: No lower extremity edema. IMPRESSION: 1. Severe pancreatitis with evidence of necrosis by CT and secondary pulmonary effusions. She had high white blood cell count and fevers. Believes to be secondary to the pancreatitis itself rather than acute infectious process. 2. Anemia. The source of the anemia is not clear. She has been tachycardic in the 130s to 140s; however, her tachycardia has improved and she feels much better after having received blood transfusion yesterday. She did have an attempted blood transfusion couple of days before, but was thought to have a transfusion reaction when she developed fever with it. Given the ongoing tachycardia and marked improvement with a single unit, I do think she could benefit from 1 more unit of RBC transfusion. 3. Diabetic ketoacidosis, resolved. RECOMMENDATIONS: 1. Transfuse 1 more unit today. 2. Low-fat diet. 3. Plan ultrasound of the gallbladder in a couple of weeks. Again, I think that the pancreatitis was most likely from the hypertriglyceridemia. Still we will continue to consider gallbladder etiology as a possibility. 4. She may be ready for discharge home tomorrow or the next day if she continues to show marked improvement like she did from yesterday to today. Job ID: [id number]
[2018-12-20] MEDS ORDERED: Bacteriostatic Water 30 ML VIAL FS SCH (13:00)
[2018-12-20] MEDS ORDERED: methylPREDNISolone Sod Succ 40 MG VIAL IVP SCH (13:00)
[2018-12-20] MEDS: Acetaminophen 325 MG TAB PO PRN (13:30)
[2018-12-20] MEDS ORDERED: diphenhydrAMINE 25 MG CAP PO PRN (19:41)
[2018-12-20] MEDS ORDERED: Temazepam 15 MG CAP PO PRN (19:53)
[2018-12-21] MEDS: HumaLOG 300 UNITS/3 ML VIAL SC PRN (00:24)
[2018-12-21 03:11] LABS: C-Peptide 1.7 ng/mL (1.1-4.4)
[2018-12-21] MEDS: D5 1/2 NS w/20 mEq KCL 1,000 ML IV SCH ×2 (05:25→05:34)
--- NOTE | 2018-12-21 07:23 | PDOC.PN ---
- Subjective Encounter Start Date: 12/21/18 Encounter Start Time: 09:40 Subjective: Patient eating well. No pain. No N/V. - Objective Resuscitation Status - Order Detail: 12/12/18 23:56 Resuscitation Status Routine Resuscitation Status: FULL: Full Resuscitation MAR Reviewed: Yes Vital Signs & Weight: Vital Signs (12 hours) Temp Pulse Resp BP Pulse Ox 12/20/18 20:00 98 12/20/18 19:53 97.9 F 105 H 18 116/82 98 Weight Weight 192 lb 7.417 oz Most Recent Monitor Data Heart Rate from ECG 142 NIBP 126/79 NIBP BP-Mean 94 Respiration from ECG 29 SpO2 98 I&O: 12/20/18 12/21/18 12/22/18 06:59 06:59 06:59 Intake Total 4690 2300 1200 Balance 4690 2300 1200 Result Diagrams: 12/21/18 08:54 12/20/18 05:15 Additional Labs: Accuchecks 12/21/18 12/21/18 12/20/18 04:57 00:14 20:05 POC Glucose 263 H 326 H 369 H 12/20/18 12/20/18 12/20/18 15:55 11:14 08:11 POC Glucose 257 H 325 H 281 H Phys Exam - Physical Examination Constitutional: NAD HEENT: moist MMs Respiratory: no wheezing, no rales, no rhonchi Cardiovascular: RRR, no significant murmur Gastrointestinal: soft, non-tender, positive bowel sounds Neurological: non-focal, moves all 4 limbs Psychiatric: normal affect, A&O x 3 Dx/Plan (1) Acute pancreatitis Code(s): K85.90 - ACUTE PANCREATITIS WITHOUT NECROSIS OR INFECTION, UNSP Status: Acute Qualifiers: Pancreatitis type: other Acute pancreatitis complication: uninfected necrosis Qualified Code(s): K85.81 - Other acute pancreatitis with uninfected necrosis Comment: Likely due to hypertriglyceridemia, possibly biliary source, needs U/S gallbladder in 2 weeks after all inflammatory changes resolved (2) Pleural effusion associated with pancreatitis Code(s): K85.90 - ACUTE PANCREATITIS WITHOUT NECROSIS OR INFECTION, UNSP; J91.8 - PLEURAL EFFUSION IN OTHER CONDITIONS CLASSIFIED ELSEWHERE Status: Acute (3) Tachycardia with heart rate 141-160 beats per minute Code(s): R00.0 - TACHYCARDIA, UNSPECIFIED Status: Acute Comment: improving, likely due to pancreatitis (4) Fever of undetermined origin Status: Resolved Comment: likley due to inflammation from pancreatitis, holding on antibiotics for now (5) Hypertriglyceridemia Code(s): E78.1 - PURE HYPERGLYCERIDEMIA Status: Acute Comment: improved, start Tricor to prevent recurrent elevation and pancreatitis (6) DKA, type 1 Code(s): E10.10 - TYPE 1 DIABETES MELLITUS WITH KETOACIDOSIS WITHOUT COMA Status: Chronic Qualifiers: Diabetes mellitus complication detail: without coma Qualified Code(s): E10.10 - Type 1 diabetes mellitus with ketoacidosis without coma (7) HTN (hypertension) Code(s): I10 - ESSENTIAL (PRIMARY) HYPERTENSION Status: Chronic Qualifiers: Hypertension type: essential hypertension Qualified Code(s): I10 - Essential (primary) hypertension (8) Positive test Code(s): Z32.01 - ENCOUNTER FOR TEST, RESULT POSITIVE Status: Ruled- out (9) Adnexal mass Code(s): N94.9 - UNSP COND ASSOC W FEMALE GENITAL ORGANS AND MENSTRUAL CYCLE Status: Acute Comment: right sided, with hyperdense region, likely dermoid, needs repeat U/S by pipe smoker machine operator in 6 weeks (10) Anemia Code(s): D64.9 - ANEMIA, UNSPECIFIED Status: Acute Qualifiers: Anemia type: unspecified type Qualified Code(s): D64.9 - Anemia, unspecified Comment: transfused a second unit, hgb above 7 - Plan cont current plan of care, DVT proph w/SCDs eating well, home today, f/u with GI and Appliance Repair Technician outpatient * . - Discharge Day Encounter end time: 10:00
[2018-12-21] MEDS: Lisinopril 5 MG TAB PO SCH (08:11)
[2018-12-21] MEDS: Ferrous Sulfate 325 MG TAB PO SCH (08:11)
[2018-12-21] MEDS: INSULIN GLARGINE SC SCH (08:12)
[2018-12-21] MEDS: Enoxaparin Sodium 40 MG/0.4 ML SYRINGE SC SCH (08:13)
[2018-12-21] MEDS: HumaLOG 300 UNITS/3 ML VIAL SC SCH (08:13)
[2018-12-21 08:21] VITALS: BP 131/84; TEMP 97.8
[2018-12-21 09:13] LABS: #Basophils 0.1 thou/uL (0.0-0.2); #Monocytes 0.5 thou/uL (0.11-0.59); #Neutrophils 9.7 thou/uL (1.40-6.50); %Basophils 0.8 % (0.0-1.0); %Eosinophils 0.3 % (0.0-10.0); %Lymphocytes 16.1 % (21.0-51.0); %Monocytes 4.3 % (0.0-10.0); %Neutrophils 78.6 % (42.0-75.0); Hemoglobin 9.6 g/dL (12.0-16.0); Mean Corpuscular HGB CONC 31.7 g/dL (32.0-36.0); Mean Corpuscular Hemoglobin 26.6 pg (27.0-31.0); Mean Corpuscular Volume 84.1 fL (78.0-98.0); Mean Platelet Volume 10.1 fL (7.4-10.4); Platelet Count 300 thou/uL (130-400); RBC Distribution Width 14.3 % (11.5-14.5); Red Blood Cell (RBC) Count 3.61 mill/uL (4.20-5.40); White Blood Cell (WBC) Count 12.4 thou/uL (4.8-10.8)
--- NOTE | 2018-12-21 21:10 | DIS ---
DATE OF ADMISSION: 12/12/2018 DATE OF DISCHARGE: 12/21/2018 PRIMARY CARE PHYSICIAN: Pat Kumar MD REASON FOR ADMISSION: Diabetic ketoacidosis. DIAGNOSES AT DISCHARGE: 1. Diabetic ketoacidosis, resolved. 2. Acute pancreatitis secondary to hypertriglyceridemia. 3. Pleural effusions, secondary to #2. 4. Hypertriglyceridemia. 5. Diabetes mellitus type 1. 6. Hypertension. 7. False positive test. 8. 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 9. Anemia, secondary to iron deficiency. PROCEDURES: 1. CT of the abdomen and pelvis with contrast showing severe acute pancreatitis with extensive abdominal inflammation, stranding and peripancreatic fluid, probable necrosis of the pancreatic tail. 2. Pelvic ultrasound showing extensive free fluid in the pelvis with thickened endometrium and mass in the right adnexa. 3. CTA of the thorax showing no pulmonary embolism. Small bilateral pleural effusions, mild ascites and hepatomegaly with fatty infiltration and wall thickening involving the stomach, likely due to the patient's pancreatitis. 4. Repeat CT scan of the abdomen and pelvis showing severe pancreatitis as before, some possible hemorrhagic element but stable in size and no evidence of abscess. 5. Bilateral lower extremity venous Doppler showing no evidence of DVT. 6. Echocardiogram showing ejection fraction of 60% to 65%, some tachycardia but otherwise normal. 7. MRI of the pelvis showing lesion emanating from the right ovary, may represent irregular cyst, could also represent cyst that recently ruptured and undergoing involution. CONSULTATIONS: 1. Pulmonology, Antonio Ponce MD. 2. Gastroenterology, Sam Gagnon MD. 3. OB Gynecology, Jonn Quinones MD. 4. Infectious Disease, Chriss Gutiérrez MD. PERTINENT LABORATORY: The patient's hemoglobin is low after volume repletion down to 6.7, transfused after 2 units up to 9.6. White blood cell count initially 13 ,000 down to 12,000 at discharge. Blood sugars in the 2 to 300s on her home insulin and diabetic diet. Lipase initially 440, trended down to 118. Triglycerides initially 2000, down to 219 before discharge. SUMMARY OF HOSPITAL COURSE: This is a 28-year-old female who came to the hospital with nausea, vomiting, abdominal pain for 2 days, found to be in DKA and also noted with significant abdominal pain and elevated lipase. She had a CT scan showing severe pancreatitis beyond with her lipase level was suggested. Dr. Gagnon was consulted for Gastroenterology. Her triglycerides were found to be severely elevated, initially 2000 with controlled diabetes, and recent use of insulin, it came down into the 200s. She had a slowly improving course during her hospitalization, did spike some fever and had persistent elevated white blood cell count. Dr. Gutiérrez was consulted for Infectious Disease, but determined that the fever and all of her symptoms were most likely due to her acute pancreatitis rather than an infectious etiology. All antibiotics were stopped and she continued to improve. The patient was eating well on the day of discharge without any abdominal pain. No nausea or vomiting. During hospitalization, the patient did have a positive test done. Repeat serum tests were all negative. She had right adnexal mass noted on CT scans, ultrasound and MRI as above. Dr. Quinones was consulted for projector operator. He recommended a repeat ultrasound in 6 weeks to make sure that the cyst was involuting and then it resolves. The patient is going to be started on some TriCor to prevent further hypertriglyceridemia and was instructed to stay on her insulin well and she will need to have this titrated up as an outpatient or switch to insulin pump as directed by her primary care doctor. DISCHARGE MANAGEMENT: Discharged home. FOLLOWUP: Follow up with Dr. Kumar in 7 days, Dr. Quinones in 6 weeks for repeat pelvic ultrasound, and with Dr. Gagnon in 2 weeks for a gallbladder ultrasound. ACTIVITY: As tolerated. DIET: Diabetic diet. MEDICATIONS: 1. Fenofibrate 145 mg daily, 30 tablets dispensed. 2. Ferrous sulfate 325 mg twice a day, 60 tablets dispensed. 3. Continue lisinopril 5 mg daily. 4. Continue Levemir 15 units subcu daily. Arranging the details of this discharge took 35 minutes. Job ID: [id number] MTDD
[2018-12-22] MEDS ORDERED: Fenofibrate Nanocrystallized 145 MG TAB PO SCH (09:00)
== END 2018-12-21 12:10 | disposition home or self-care (01) | DRG 637 ==
LOC: ERS 20:35 → IMCU/EMU 23:21 → ONC 12-17 10:06
PROVIDERS: ADMIT Hospitalist; ATTEND Hospitalist
PROC: 30233N1 Transfusion of Nonautologous Red Blood Cells into Peripheral Vein, Percutaneous Approach (ICD-10-PCS; principal; 2018-12-17)
DX: E10.10 Type 1 diabetes mellitus with ketoacidosis without coma (principal); K85.91 Acute pancreatitis with uninfected necrosis, unspecified; J91.8 Pleural effusion in other conditions classified elsewhere; I10 Essential (primary) hypertension; E83.51 Hypocalcemia; R00.0 Tachycardia, unspecified; E78.1 Pure hyperglyceridemia; R50.84 Febrile nonhemolytic transfusion reaction; D50.9 Iron deficiency anemia, unspecified; D27.0 Benign neoplasm of right ovary; R78.89 Finding of other specified substances, not normally found in blood; E66.9 Obesity, unspecified; Z68.37 Body mass index [BMI] 37.0-37.9, adult; Z79.4 Long term (current) use of insulin; Z91.14 Patient's other noncompliance with medication regimen
CPT/HCPCS: 36415; 36416; 36430; 71045; 71275; 72197; 74176; 74177; 76856; 80048; 80053; 80076; 80306; 80307; 81003; 81015; 81025; 82010; 82150; 82330; 82550; 82803; 82805; 83010; 83540; 83550; 83605; 83690; 83735; 84100; 84439; 84443; 84478; 84481; 84484; 84681; 84702; 84703; 85025; 85379; 86850; 86900; 86901; 87040; 87086; 87324; 87449; 87804; 93005; 93010; 93306; 93970; 96361; 96365; 96366; 96368; 96375; 96376; A9577; C9113; J0456; J0696; J1200; J1650; J1815; J1825; J2060; J2185; J2405; J2543; J2550; J2765; J2920; J3370; J7050; P9016; Q0162; Q0163; Q9966

== ENCOUNTER 2019-08-26 21:20 | Inpatient (IN) | payer OTHER ==
[~2019-08-26 21:20] MED LIST: ISOVUE-370 76%-LOCM 1 ML ONE
[2019-08-26] MEDS ORDERED: Ondansetron PF 4 MG/2 ML Vial ONE ×2 (22:12→22:26)
[2019-08-26 22:15] LABS: Bacteria/HPF 2+ HPF (None Seen); Bilirubin Negative (Negative); Blood, Urine Negative (Negative); Clarity Clear (Clear); Glucose, Urine (Dipstick) Greater than 1000 mg/dL (Negative); Leukocyte Negative Leu/uL (Negative); Mucous/LPF Rare LPF (<2+); Nitrite Negative (Negative); Protein, Urine (Dipstick) 50 mg/dL (Neg-Trace); RBC/HPF 0-3 HPF (0-3); Urobilinogen Normal mg/dL (Less than 2)
[2019-08-26] MEDS ORDERED: Fentanyl 100 MCG/2 ML VIAL ONE ×2 (22:19→23:21)
[2019-08-26 22:27] LABS: Pregnancy Test - Urine (BHCG) Negative (Negative)
[2019-08-26 22:28] LABS: Pregu Control Background? CLEAR/WHITE (CLR/WHITE); Pregu Control Bar Appear? YES (CONTROL BAR); Specific Gravity 1.046 (1.002-1.036)
[2019-08-26 23:00] LABS: Hemoglobin 13.5 g/dL (12.0-16.0); Mean Corpuscular Hemoglobin 27.5 pg (27.0-31.0); Mean Corpuscular Volume 78.5 fL (78.0-98.0); Mean Platelet Volume 10.3 fL (7.4-10.4); Platelet Count 189 thou/uL (130-400); RBC Distribution Width 12.7 % (11.5-14.5); White Blood Cell (WBC) Count 21.7 thou/uL (4.8-10.8)
--- NOTE | 2019-08-26 23:00 | CT ---
CT Abdomen Pelvis W Con: 08/26/2019 10:26 PM CLINICAL INFORMATION: Abdominal pain and nausea; pancreatitis COMPARISON: 12/13/2018; MRI abdomen 12/18/2018 TECHNIQUE: Multiple contiguous axial images were obtained and a CT of the abdomen and pelvis with IV contrast. C oronal and sagittal reformats were performed. FINDINGS: Lower Chest: within normal limits. Abdomen: Liver: within normal limits. Bile Ducts: Normal caliber. Gallbladder: No calcified gallstones. Normal caliber wall. Pancreas: The previously seen stranding changes surrounding the pancreas have significantly improved. There is still normal enhancing pancreatic tissue in the insular portion, head, and neck of the pancreas. There is a developing pseudocyst along the tail of the pancreas. This extends inferiorly fr om the tail the pancreas approximately 18.5 cm and is 6.2 cm in diameter. The splenic vein is diminutive in appearance and there are developing varices in the splenic hilum. The splenic artery is patent. Spleen: within normal limits. Adrenals: within normal limits. Kidneys: within normal limits. Pelvis: Reproductive Organs: There is a stable 6.1 cm cystic mass in the right ovary. Ureters: within normal limits. Bladder: within normal limits. Peritoneum: No ascites or free air, no fluid collection. Bowel: Normal caliber. Mesentery and Retroperitoneum: No enlarged mesenteric or retroperitoneal lymph nodes. Vessels: Normal. Abdominal Wall: within normal limits. Bones: Within normal limits IMPRESSION: 1. Developing pancreatic pseudocyst 2. 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 3. Stable cystic right ovarian mass. Gynecologic consultation is recommended.
[2019-08-26 23:05] LABS: Band 16 % (5-11); Lymphocytes 8 % (21-51); Monocytes 1 % (0-10); Neutrophil 75 % (42-75)
[2019-08-26 23:06] LABS: MDiff Complete? YES
[2019-08-26 23:13] LABS: ALT (SGPT) Less than 35 U/L (8-55)
[2019-08-26] MEDS ORDERED: Metoclopramide HCl 10 MG/2 ML VIAL ONE (23:21)
[2019-08-26 23:24] LABS: Albumin 4.3 g/dL (3.5-5.0)
[2019-08-26 23:25] LABS: Chloride 100 mmol/L (98-107); Sodium 136 mmol/L (136-145)
[2019-08-26 23:27] LABS: Carbon Dioxide 18 mmol/L (22-29)
[2019-08-26 23:28] LABS: Anion Gap 22 mmol/L (10-20)
[2019-08-26 23:29] LABS: BUN (Urea Nitrogen) 12 mg/dL (7.0-18.7)
[2019-08-26 23:30] LABS: Bilirubin, Total 0.6 mg/dL (0.2-1.2); Calc. Creatinine Clearance 0 mL/min (70-130); Calcium 8.5 mg/dL (7.8-10.44); Estimated GFR-MDRD Greater than 90; Globulin 2.4 g/dL (2.4-3.5); Glucose 290 mg/dL (70-105); Protein, Total 6.7 g/dL (6.0-8.3)
[2019-08-26 23:33] LABS: AST (SGOT) 20 U/L (5-34); Alkaline Phosphatase 80 U/L (40-110)
[2019-08-26 23:34] LABS: Lipase 451 U/L (8-78)
[2019-08-26 23:49] LABS: Base Excess-Venous -5.5 mmol/L (-2.0 to 3.0); Bicarbonate (HCO3v) 20.9 mmol/L (22.0-28.0); CO2 Tension (PvCO2) 43.2 mmHg (40.0-50.0); Calcium, Ionized 1.03 mmol/L (See Comments:); Chloride 107 mmol/L (98-107); Sodium 137 mmol/L (138-145); T. Carbon Dioxide 22.2 mmol/L (22.0-28.0); vO2 Saturation-calc 55.8 % (60.0-85.0)
[2019-08-27] MEDS ORDERED: Insulin Glargine 15 UNITS in Pre-Filled Syringe 1 EACH SC SCH (00:30)
[2019-08-27] MEDS ORDERED: Insulin Regular 100 units/100 ml in NS IVPB SCH (00:30)
[2019-08-27] MEDS ORDERED: Dextrose 50% Abboject 50 ML SYRINGE SLOW IVP PRN ×2 (00:39→02:57)
[2019-08-27] MEDS ORDERED: Dextrose 5% in Water 1,000 ML IV PRN ×2 (00:39→02:56)
[2019-08-27] MEDS ORDERED: NS 0.9% w/ 40 MEQ KCL 1,000 ML IV SCH (01:00)
[2019-08-27] MEDS ORDERED: HYDROmorphone 0.5 MG/0.5 ML SYRINGE ONE (01:06)
[2019-08-27] MEDS ORDERED: Ondansetron ODT 4 MG TAB SL PRN (02:53)
[2019-08-27] MEDS ORDERED: Ondansetron PF 4 MG/2 ML Vial IVP PRN (02:53)
[2019-08-27] MEDS ORDERED: Morphine 2 MG/ML SYRINGE SLOW IVP PRN ×2 (02:54→15:33)
[2019-08-27] MEDS ORDERED: Dextrose 5 %-0.45 % NaCl 1,000 ML IV PRN ×2 (02:56→04:04)
[2019-08-27] MEDS ORDERED: Sodium Chloride 0.9% 1,000 ML IV PRN ×8 (02:56→04:04)
[2019-08-27] MEDS ORDERED: NS 0.9% w/ 20 MEQ KCL 1,000 ML/1,000 ML BAG IV PRN ×2 (02:56)
[2019-08-27] MEDS ORDERED: D5 1/2 NS w/20 mEq KCL 1,000 ML IV PRN (02:56)
[2019-08-27] MEDS ORDERED: Magnesium 2 GM/50 ML 2 GM in Premix Bag 1 BAG IVPB PRN ×2 (02:57→04:06)
[2019-08-27] MEDS ORDERED: Potassium Chloride 40 MEQ in Sodium Chloride 0.9% 250 ML 250 ML IVPB PRN ×2 (02:57→04:06)
[2019-08-27] MEDS ORDERED: Magnesium Oxide 400 MG TAB PO PRN ×3 (02:57→04:06)
[2019-08-27] MEDS ORDERED: Potassium Chloride 40 MEQ in Premix Bag 1 BAG IVPB PRN ×2 (02:57→04:06)
[2019-08-27] MEDS ORDERED: CCU ELECTROLYTE REPLACEMENT PROTOCOL FS PRN ×2 (02:57→04:06)
[2019-08-27] MEDS ORDERED: PHOS-NAK 1 PKT PACK PO PRN ×3 (02:57→04:06)
[2019-08-27] MEDS ORDERED: Potassium Phosphate 9 MMOL in Sodium Chloride 0.9% 100 ML IVPB PRN ×2 (02:57→04:06)
[2019-08-27] MEDS ORDERED: Potassium Phosphate 12 MMOL in Sodium Chloride 0.9% 250 ML 250 ML IV PRN ×2 (02:57→04:06)
[2019-08-27] MEDS ORDERED: Potassium Chloride 20 MEQ TAB PO PRN ×2 (02:57→04:06)
[2019-08-27] MEDS ORDERED: Potassium Phosphate 15 MMOL in Sodium Chloride 0.9% 250 ML 250 ML IV PRN ×2 (02:57→04:06)
[2019-08-27] MEDS ORDERED: 1/2 NS w/KCL 20 mEq 1,000 ML IV SCH (03:00)
[2019-08-27] MEDS ORDERED: ADD ELECTROLYTE REPLACEMENT SET TO PROFILE FS SCH (03:00)
[2019-08-27] MEDS: D5 1/2 NS w/20 mEq KCL 1,000 ML IV PRN ×5 (03:06→21:15)
[2019-08-27 03:41] VITALS: BMI 33.2
[2019-08-27] MEDS ORDERED: NS 0.9% w/ 20 MEQ KCL 1,000 ML IV PRN ×2 (04:04)
[2019-08-27] MEDS ORDERED: CCU Electrolyte Replacement 1 EACH IVPB SCH (04:04)
[2019-08-27] MEDS ORDERED: Acetaminophen 650 MG Suppository PR PRN (04:06)
[2019-08-27] MEDS ORDERED: Senokot S 8.6-50 MG TAB PO PRN (04:06)
[2019-08-27] MEDS ORDERED: Ondansetron ODT 4 MG TAB PO PRN (04:06)
[2019-08-27] MEDS: MEROPENEM 1 GM/50 ML 1 GM in Premix Bag 1 BAG IVPB SCH ×3 (05:23→21:25)
[2019-08-27] MEDS: Morphine 2 MG/ML SYRINGE SLOW IVP PRN ×3 (05:24→09:38)
[2019-08-27 07:32] LABS: Hemoglobin A1c 7.7 % (4.0-6.0)
--- NOTE | 2019-08-27 07:43 | HP ---
PRIMARY CARE PHYSICIAN: Pat Kumar MD CHIEF COMPLAINT: Abdominal pain with nausea and vomiting of one day duration. HISTORY OF PRESENT ILLNESS: The patient is a 28-year-old female with diabetes mellitus type 1, presented to the hospital with above complaints. She was admitted at this facility in December of this year for diabetic ketoacidosis along with acute pancreatitis secondary to hypertriglyceridemia. Her triglycerides at that time was 2200 and 2222. The triglyceride improved to 219 at discharge. She was started on TriCor; however, she never took it at home. The patient had sudden onset of nausea and vomiting with abdominal discomfort that started yesterday. She had several episodes of vomiting. Abdominal pain was periumbilical radiating to her back. The vomitus contained food which she had eaten. She denies any hematemesis, melena, or hematochezia. She had a normal bowel movement yesterday. She denies any fever or chills. She had some dysuria as well. She denies any relieving factor. PAST MEDICAL HISTORY: 1. Diabetes mellitus type 1. 2. History of hypertriglyceridemia. 3. Hypertension. 4. Adnexal mass, most likely dermoid. The patient was advised to follow up with INTERNAL WHOLESALER last hospitalization. 5. Chronic anemia. PAST SURGICAL HISTORY: 1. Appendectomy. 2. Tonsillectomy. ALLERGIES: NO KNOWN DRUG ALLERGIES. CURRENT HOME MEDICATION: 1. Metformin 500 mg b.i.d. 2. Lisinopril 5 mg daily. 3. Iron 65 mg daily. 4. Levemir 15 units daily. 5. Lipitor 10 mg at bedtime. SOCIAL HISTORY: The patient drinks alcohol socially. No smoking or drug use. FAMILY HISTORY: Negative for inheritable diseases. REVIEW OF SYSTEMS: All other review of systems were reviewed and were found negative. PHYSICAL EXAMINATION: VITAL SIGNS: Temperature 98.4, respirations 22, pulse rate of 109, blood pressure of 134/90, O2 saturation 99% on room air. GENERAL: A 28-year-old female in [id number] distress due to epigastric discomfort. HEENT: Head, atraumatic and normocephalic. Sclerae anicteric. Dry mucous membranes. No oral lesion. NECK: Supple. No JVD. No carotid bruit. LUNGS: Showed diminished air entry at bilateral bases. No wheezing, rales, or rhonchi. HEART: S1 and S2 present. Regular rate and rhythm. No rubs or gallops. ABDOMEN: Abdomen was soft. There is tenderness with voluntary guarding. Bowel sounds are present. No costovertebral angle tenderness. EXTREMITIES: No edema or calf tenderness. NEUROLOGIC: Grossly nonfocal. Moves all 4 extremities. PSYCHIATRY: Alert, awake and oriented x3. LABORATORY FINDINGS: CBC showed WBC 21.7, hemoglobin 13.5, hematocrit 38.5, platelet 189. VBG showed pH 7.29 with bicarbonate of 21. Chemistry showed sodium 136, potassium 4, chloride 100, bicarb 18, BUN 12, creatinine 0.64. Lipase was 451. Urinalysis showed 4 to 6 WBCs with 2+ bacteria. CT scan of the abdomen and pelvis by my review showed developing pancreatic pseudocyst with thrombosis of the splenic vein with developing collaterals/varices in the splenic hilum, and left retroperitoneum. It also showed stable cystic right ovarian mass. Telemetry monitoring by my review showed sinus tachycardia. IMPRESSION: 1. Acute pancreatitis, most likely secondary to elevated triglycerides. 2. Severe sepsis. 3. Diabetes mellitus type 2. 4. Dehydration. 5. Suspected urinary tract infection. 6. Hyponatremia. Sodium on admission was 137. PLAN: The patient will be monitored in the Intermediate Care Unit. We will continue insulin drip. We will add Lovenox 1 mg/kg for DVT prophylaxis. We will check triglycerides twice a day. IV fluids per DKA protocol. We will recheck magnesium and phosphorus in a.m. We will recheck basic metabolic profile more often. Plan of care was discussed with the patient in detail. She stated understanding. Job ID: [id number]
[2019-08-27 07:48] LABS: Potassium 4.4 mmol/L (3.5-5.1)
[2019-08-27 07:50] LABS: Anion Gap 18 mmol/L (10-20); BUN (Urea Nitrogen) 4 mg/dL (7.0-18.7); Calc. Creatinine Clearance 162 mL/min (70-130); Carbon Dioxide 15 mmol/L (22-29); Chloride 101 mmol/L (98-107); Estimated GFR-MDRD Greater than 90; Glucose 238 mg/dL (70-105); Magnesium 1.4 mg/dL (1.6-2.6)
[2019-08-27 07:53] LABS: Phosphorus 1.3 mg/dL (2.3-4.7)
[2019-08-27 07:55] LABS: Sodium 130 mmol/L (136-145)
[2019-08-27] MEDS: Enoxaparin Sodium 40 MG/0.4 ML SYRINGE SC SCH (08:30)
[2019-08-27] MEDS: Famotidine/PF 20 mg/2ml Vial SLOW IVP SCH ×3 (08:31→21:16)
[2019-08-27] MEDS: Famotidine 20 MG TAB PO SCH ×2 (08:31→21:16)
[2019-08-27] MEDS: Magnesium Oxide 400 MG TAB PO PRN ×2 (08:31→13:23)
[2019-08-27] MEDS: PHOS-NAK 1 PKT PACK PO PRN ×3 (08:32→16:08)
[2019-08-27] MEDS: Ondansetron PF 4 MG/2 ML Vial IVP PRN ×2 (09:37→21:14)
[2019-08-27] MEDS: HUMULIN R 100 UNITS in Sodium Chloride 0.9% 100 ML IVPB SCH ×2 (10:17→21:15)
[2019-08-27] MEDS: Promethazine HCl 25 MG/ML VIAL IM/IV PRN ×2 (11:45→18:01)
[2019-08-27 12:01] LABS: Anion Gap 25 mmol/L (10-20); Calc. Creatinine Clearance 176 mL/min (70-130); Calcium 8.2 mg/dL (7.8-10.44); Carbon Dioxide 11 mmol/L (22-29); Chloride 101 mmol/L (98-107); Estimated GFR-MDRD Greater than 90; Glucose 193 mg/dL (70-105); Potassium 3.5 mmol/L (3.5-5.1); Sodium 133 mmol/L (136-145)
[2019-08-27 12:02] LABS: BUN (Urea Nitrogen) Less than 4 mg/dL (7.0-18.7)
--- NOTE | 2019-08-27 13:47 | PDOC.HOSPP ---
- Subjective Encounter Date: 08/27/19 Encounter Time: 09:40 Subjective: awake, no abd pain or nausea feels better - Objective Vital Signs & Weight: Vital Signs (12 hours) Temp Pulse Ox 08/27/19 10:38 99.2 F 08/27/19 08:00 99 08/27/19 07:09 99.6 F Weight Weight 170 lb 4 oz Most Recent Monitor Data Heart Rate from ECG 127 NIBP 134/93 NIBP BP-Mean 106 Respiration from ECG 27 SpO2 100 I&O: 08/26/19 08/27/19 08/28/19 06:59 06:59 06:59 Intake Total 1380 Output Total 700 Balance 680 Result Diagrams: 08/26/19 22:17 08/27/19 11:02 Additional Labs: Accuchecks 08/27/19 08/27/19 08/27/19 12:56 12:02 11:16 POC Glucose 171 H 175 H 204 H 08/27/19 08/27/19 08/27/19 10:01 09:01 08:02 POC Glucose 189 H 190 H 206 H 08/27/19 08/27/19 08/27/19 07:14 06:14 05:34 POC Glucose 221 H 230 H 239 H 08/27/19 08/27/19 08/27/19 04:12 02:59 02:02 POC Glucose 207 H 248 H 259 H 08/27/19 08/26/19 08/26/19 00:58 23:33 21:28 POC Glucose 270 H 256 H 249 H Hospitalist ROS - Medication Medications: Active Medications Generic Name Dose Route Start Last Admin Trade Name Clint PRN Reason Stop Dose Admin Enoxaparin Sodium 40 mg 08/27/19 09:00 08/27/19 08:30 Lovenox SC 40 mg 0900 TINA Administration Famotidine 20 mg 08/27/19 09:00 08/27/19 08:58 Pepcid SLOW IVP Not Given Q12HR TINA Famotidine 20 mg 08/27/19 09:00 08/27/19 08:31 Pepcid PO 20 mg BID TINA Administration Insulin Human Regular 100 101 mls @ 0 mls/hr 08/27/19 04:15 08/27/19 10:17 units/ Sodium Chloride IVPB 101 mls INF TINA Administration Protocol Titrate Meropenem 1 gm/ Device 50 mls @ 100 mls/hr 08/27/19 06:00 08/27/19 13:25 IVPB 50 mls Q8HR TINA Administration Potassium Chloride/Dextrose/Sod Cl 1,000 mls @ 250 mls/hr 08/27/19 04:04 13:24 D5 1/2 Ns W/20 Meq Kcl IV 1,000 mls .Q4H PRN Administration Step 4 of DKA Protocol Protocol Magnesium Oxide 400 mg 08/27/19 04:06 08/27/19 13:23 Magnesium Oxide PO 400 mg BIDPRN PRN Administration FOR SERUM MAG 1.4 - 2.0 Miscellaneous Medication 1 pkt 08/27/19 04:06 08/27/19 13:23 Phos-Nak PO 1 pkt TIDPRN PRN Administration FOR PHOS LEVEL 1.0 - 1.8 Morphine Sulfate 2 mg 08/27/19 04:46 08/27/19 09:38 Morphine SLOW IVP 08/27/19 14:00 2 mg Q2H PRN Administration Severe Pain (7-10) Ondansetron HCl 4 mg 08/27/19 04:06 08/27/19 09:37 Zofran IVP 4 mg Q6H PRN Administration Nausea/Vomiting Promethazine HCl 25 mg 08/27/19 09:38 08/27/19 11:45 Phenergan IM/IV 25 mg Q6H PRN Administration Nausea/Vomiting Sodium Chloride 10 ml 08/27/19 09:00 08/27/19 09:00 Flush - Normal Saline IVF Not Given Q12HR TINA - Exam General Appearance: NAD, awake alert Eye: PERRL, anicteric sclera ENT: no oropharyngeal lesions, moist mucosa Neck: supple, no JVD Heart: RRR, no murmur Respiratory: no wheezes, no rales Gastrointestinal: soft, non-tender, non-distended, normal bowel sounds Extremities: no cyanosis, no edema Neurological: cranial nerve grossly intact, no focal deficits Psychiatric: normal affect, A&O x 3 Hosp A/P (1) Acute pancreatitis Code(s): K85.90 - ACUTE PANCREATITIS WITHOUT NECROSIS OR INFECTION, UNSP Status: Acute Qualifiers: (2) Hypertriglyceridemia Code(s): E78.1 - PURE HYPERGLYCERIDEMIA Status: Acute (3) Adnexal mass Code(s): N94.9 - UNSP COND ASSOC W FEMALE GENITAL ORGANS AND MENSTRUAL CYCLE Status: Chronic (4) Anemia Code(s): D64.9 - ANEMIA, UNSPECIFIED Status: Chronic Qualifiers: (5) Diabetes mellitus Code(s): E11.9 - TYPE 2 DIABETES MELLITUS WITHOUT COMPLICATIONS Status: Chronic Qualifiers: Diabetes mellitus type: type 1 (6) HTN (hypertension) Code(s): I10 - ESSENTIAL (PRIMARY) HYPERTENSION Status: Chronic Qualifiers: - Plan is on insulin drip to bring down high triglyceride levels on D51/ns at 250mls/hr watch for hypoglycemia triglyceride levels now CT abd results reviewed, has large pseudocyst which likely needs to be drained when current flare up settles down was not taking tricor after her last hospitalization to f/u with outpt Obgyn for chronic right adnexal cyst GI consultation once she is off insulin drip she can be transfered to medical floor
[2019-08-27] MEDS: traMADol HCl 50 MG TAB PO PRN (16:01)
[2019-08-27 18:08] LABS: Chloride 102 mmol/L (98-107); Potassium 4.4 mmol/L (3.5-5.1); Sodium 133 mmol/L (136-145)
[2019-08-27 18:09] LABS: Glucose 173 mg/dL (70-105); Triglycerides 735 mg/dL (Less than 150)
[2019-08-27 18:10] LABS: Anion Gap 14 mmol/L (10-20); Carbon Dioxide 21 mmol/L (22-29)
[2019-08-27 18:12] LABS: Calc. Creatinine Clearance 186 mL/min (70-130); Estimated GFR-MDRD Greater than 90
[2019-08-27 18:13] LABS: BUN (Urea Nitrogen) Less than 4 mg/dL (7.0-18.7)
[2019-08-27] MEDS ORDERED: FLU VACC QS2019-20(6MOS UP)/PF 60 MCG/0.5 ML SYRINGE IM ONE (21:00)
[2019-08-27 23:33] LABS: Anion Gap 12 mmol/L (10-20); BUN (Urea Nitrogen) Less than 4 mg/dL (7.0-18.7); Calc. Creatinine Clearance 189 mL/min (70-130); Carbon Dioxide 22 mmol/L (22-29); Chloride 103 mmol/L (98-107); Estimated GFR-MDRD Greater than 90; Glucose 175 mg/dL (70-105); Potassium 3.8 mmol/L (3.5-5.1); Sodium 133 mmol/L (136-145)
--- NOTE | 2019-08-28 00:31 | CON ---
DATE OF CONSULTATION: 08/27/2019 REASON FOR CONSULTATION: Acute pancreatitis and hypertriglyceridemia. CONSULTING PROVIDER: Farzad Bellamy DO. HISTORY OF PRESENT ILLNESS: The patient is a 28-year-old female, with past medical history of diabetes, hypertriglyceridemia, hypertension, chronic anemia and a prior bout of acute pancreatitis, presenting with increased midepigastric abdominal pain. The patient states that she was in her usual state of health until yesterday when she had the acute onset of increased nausea and vomiting with approximately 5 discrete episodes of vomiting with nonbloody emesis. However, this was also associated with an increase in midepigastric abdominal pain characterized as a soreness-type sensation radiates to the left upper quadrant, right upper quadrant, and mid back, is constant with waxing and waning severity, and reaches a severity of 8/10. This midepigastric pain was worse with increased physical activity as well as with the introduction of contrast dye for the CT scan, but better with taking a hot shower and placement of a hot compress on her abdomen. With the increase in her abdominal pain and her prior history of pancreatitis, it prompted her to go to [facility] ER for further evaluation and while in the ER, she was noted to have significant acidosis consistent with diabetic ketoacidosis as well as hypertriglyceridemia again and pancreatitis. Currently, she denies any fevers, chills, hematemesis, melena, hematochezia, dysphagia, odynophagia, or weight loss. Of note, the patient was admitted to the [facility] in December 2018 again with complaints of diabetic ketoacidosis and did have acute pancreatitis secondary to hypertriglyceridemia at that time. When compared to the previous hospitalization, the current symptoms are consistent with that diagnosis, although not as severe during this admission. REVIEW OF SYSTEMS: 10-category review of systems was obtained with all responses negative except for the pertinent positives as listed in HPI. PAST MEDICAL HISTORY: As per HPI. PAST SURGICAL HISTORY: Appendectomy, tonsillectomy. FAMILY HISTORY: Denies any GI malignancies. SOCIAL HISTORY: Denies any tobacco or illicit drug use. She does drink alcohol socially. OUTPATIENT MEDICATIONS: 1. Metformin 500 b.i.d. 2. Lisinopril 500 mg daily. 3. Iron 65 mg daily. 4. Levemir 15 units daily. 5. Lipitor 10 mg at bedtime. ALLERGIES: NO KNOWN DRUG ALLERGIES. PHYSICAL EXAMINATION: VITAL SIGNS: Temperature 99, pulse 116, blood pressure 145/94, respiratory rate 26, saturating 99% on room air. GENERAL: The patient is lying in bed, in no acute distress. Alert and oriented x4. HEENT: Normocephalic atraumatic. NECK: Supple. No JVD or scleral icterus noted. CARDIOVASCULAR: Tachycardic rate, but regular rhythm. No discernible murmurs, gallops, or rubs. RESPIRATORY: Clear to auscultation bilaterally with no discernible wheezes or rales. ABDOMEN: Hypoactive bowel sounds. Soft, nondistended. Tenderness to palpation in the right upper quadrant, midepigastric, and left upper quadrants. EXTREMITIES: No cyanosis, clubbing, or edema. LABORATORY DATA: CBC with a white blood cell count of 21.7, hemoglobin 13.5, hematocrit 38.5, platelets 189. Chemistry with a sodium of 130, potassium 4.4, chloride 101, CO2 15, BUN 4, creatinine 0.64, glucose 238, AST 20, ALT less than 35, alkaline phosphatase 80, total bilirubin 0.6, triglycerides greater than 3800, lipase 451. IMAGING DATA: CT of the abdomen and pelvis obtained on August 26, 2019, showed previously seen stranding changes surrounding the pancreas have significantly improved. However, there was a developing pseudocyst along the tail of the pancreas extending inferior from the tail. Otherwise, there was no evidence of ascites, free air or fluid collection or large mesenteric retroperitoneal lymph nodes. 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 ASSESSMENT AND PLAN: The patient is a 28-year-old female, with past medical history of diabetes, hypertriglyceridemia, hypertension, chronic anemia, and pancreatitis, presenting again with diabetic ketoacidosis, hypertriglyceridemia, and acute pancreatitis. Hypertriglyceridemia/acute pancreatitis. The patient was admitted to [facility] in December 2018 with diabetic ketoacidosis, hypertriglyceridemia, and acute pancreatitis. This was ultimately treated with IV fluid support and insulin drip; however, on discharge, the patient had been prescribed TriCor but never received this medication and had not been taking it since December of this year. She is now presenting with very similar symptoms as when she was admitted in December, characterized as midepigastric soreness, radiating to the upper abdominal quadrants and reaching a severity of 8/10. Based on her significant hypertriglyceridemia of greater than 3800, it most likely has resulted in the acute pancreatitis, which would explain her pain as well as the elevated lipase of 451. She is currently undergoing management with increased IV fluid administration as well as an insulin drip as part of treatment for her diabetic ketoacidosis, which incidentally will also treat her hypertriglyceridemia as well as her acute pancreatitis. RECOMMENDATIONS: 1. We would continue IV fluid resuscitation at 250 mL/h for a total duration of therapy of 8 hours, then we would decrease to 200 mL over the next 16 hours and ultimately consider decreasing to 150-200 mL, after that until the patient's anion gap closes. 2. We would continue insulin drip as part of treatment for diabetic ketoacidosis, but we will also treat her hypertriglyceridemia. 3. We would continue to monitor her triglycerides and when the triglycerides are less than 800 to a 1000 with an institute fibrate therapy with TriCor prior to turning off her insulin drip. 4. Pain control per Primary Team. 5. We would hold on advancing her diet just yet, but we would consider advancing her to clear liquid diet within the next 24-48 hours. We will continue to follow. Please call with any questions. Job ID: [id number]
[2019-08-28] MEDS: traMADol HCl 50 MG TAB PO PRN ×2 (01:30→19:41)
[2019-08-28] MEDS: D5 1/2 NS w/20 mEq KCL 1,000 ML IV PRN ×3 (01:31→10:03)
[2019-08-28] MEDS: Acetaminophen 325 MG TAB PO PRN ×2 (03:32→10:02)
[2019-08-28 05:27] LABS: Hemoglobin A1c 8.2 % (4.0-6.0)
[2019-08-28] MEDS: MEROPENEM 1 GM/50 ML 1 GM in Premix Bag 1 BAG IVPB SCH (05:28)
[2019-08-28 05:35] LABS: #Lymphocytes 1.8 thou/uL (1.20-3.40); #Monocytes 0.4 thou/uL (0.11-0.59); #Neutrophils 9.1 thou/uL (1.40-6.50); %Basophils 0.1 % (0.0-1.0); %Eosinophils 0.3 % (0.0-10.0); %Lymphocytes 15.9 % (21.0-51.0); %Monocytes 3.7 % (0.0-10.0); Hemoglobin 11.5 g/dL (12.0-16.0); Mean Corpuscular HGB CONC 33.8 g/dL (32.0-36.0); Mean Corpuscular Hemoglobin 27.4 pg (27.0-31.0); Mean Corpuscular Volume 80.9 fL (78.0-98.0); Mean Platelet Volume 9.5 fL (7.4-10.4); Platelet Count 105 thou/uL (130-400); Platelet Morphology Comment Appears Decreased; RBC Distribution Width 12.9 % (11.5-14.5); RBC Morphology Normal; Red Blood Cell (RBC) Count 4.19 mill/uL (4.20-5.40); White Blood Cell (WBC) Count 11.3 thou/uL (4.8-10.8)
[2019-08-28 05:42] LABS: ALT (SGPT) Less than 7 U/L (8-55); AST (SGOT) 12 U/L (5-34); Albumin 3.3 g/dL (3.5-5.0); Alkaline Phosphatase 58 U/L (40-110); Anion Gap 10 mmol/L (10-20); BUN (Urea Nitrogen) Less than 4 mg/dL (7.0-18.7); Bilirubin, Total 0.7 mg/dL (0.2-1.2); Calc. Creatinine Clearance 200 mL/min (70-130); Carbon Dioxide 23 mmol/L (22-29); Chloride 103 mmol/L (98-107); Estimated GFR-MDRD Greater than 90; Globulin 2.7 g/dL (2.4-3.5); Glucose 216 mg/dL (70-105); Lipase 125 U/L (8-78); Magnesium 1.6 mg/dL (1.6-2.6); Potassium 3.5 mmol/L (3.5-5.1); Sodium 132 mmol/L (136-145); Triglycerides 341 mg/dL (Less than 150)
[2019-08-28 05:45] LABS: Phosphorus 1.7 mg/dL (2.3-4.7)
[2019-08-28] MEDS: Famotidine 20 MG TAB PO SCH ×2 (08:34→20:00)
[2019-08-28] MEDS: Magnesium Oxide 400 MG TAB PO PRN (08:34)
[2019-08-28] MEDS: Enoxaparin Sodium 40 MG/0.4 ML SYRINGE SC SCH (08:34)
[2019-08-28] MEDS: Fenofibrate Nanocrystallized 145 MG TAB PO SCH (08:38)
[2019-08-28] MEDS ORDERED: Dextrose 5% in Water 1,000 ML IV PRN (11:40)
[2019-08-28] MEDS ORDERED: HumaLOG 300 UNITS/3 ML VIAL SC PRN ×2 (11:40)
[2019-08-28] MEDS ORDERED: Dextrose 50% Abboject 50 ML SYRINGE SLOW IVP PRN (11:40)
[2019-08-28] MEDS ORDERED: Insulin Glargine 10 UNITS in Pre-Filled Syringe 1 EACH SC SCH (11:40)
[2019-08-28] MEDS: Sodium Chloride 0.9% 1,000 ML IV SCH ×2 (12:47→21:35)
--- NOTE | 2019-08-28 15:39 | PRG ---
DATE OF SERVICE: 08/28/2019 REASON FOR CONSULTATION: Acute pancreatitis and hypertriglyceridemia. SUBJECTIVE: The patient did well overnight with no acute events or problems. She is currently on increased IV fluid administration as well as an insulin drip and has responded well to both of these modalities with plans to wean her from the insulin drip later on today. She has not had any further episodes of nausea and vomiting, although she does continue to have midepigastric abdominal soreness that is distillation operator to palpation. Otherwise, she denies any fevers, chills, GI bleeding, dysphagia, or odynophagia. OBJECTIVE: VITAL SIGNS: Temperature 98, pulse 110, blood pressure 137/100, respiratory rate 22, and saturating 98% on room air. GENERAL: The patient is lying in bed, in no acute distress. Alert and oriented x4. CARDIOVASCULAR: Tachycardic rate, but regular rhythm. RESPIRATORY: Clear to auscultation bilaterally. ABDOMEN: Normoactive bowel sounds. Soft and nondistended. Tenderness to palpation in the right upper quadrant, midepigastric, and left upper quadrant. EXTREMITIES: No cyanosis, clubbing, or edema. LABORATORY DATA: CBC with a white blood cell count of 11.3, hemoglobin 11.5, hematocrit 33.9, and platelets 105. Chemistry with a sodium of 132, potassium 3.5, chloride 103, CO2 of 23, BUN less than 4, creatinine 0.52, glucose 216, AST 12, ALT less than 7, alkaline phosphatase 58, and total bilirubin 0.7. IMAGING DATA: No current GI imaging is available for review. ASSESSMENT AND PLAN: The patient is a 28-year-old female with past medical history of diabetes, hypertriglyceridemia, hypertension, chronic anemia, and pancreatitis, presenting again with diabetic ketoacidosis, hypertriglyceridemia, and acute pancreatitis. Hypertriglyceridemia/acute pancreatitis: The patient is presenting with a recurrent bout of diabetic ketoacidosis, hypertriglyceridemia, and resultant acute pancreatitis, that was seen in December 2018. She has been responding well thus far to aggressive IV fluid resuscitation as well as insulin drip. Upon review of her labs today, her triglycerides have significantly improved with her current triglycerides of 341, making her a candidate for being placed on a fibrate prior to discontinuation of the insulin drip. At this time, the most likely reason for her acute pancreatitis is a hypertriglyceridemia and as such treating her hypertriglyceridemia would prevent any further bouts of this condition. Recommendations; 1. Would slow down IV fluid resuscitation to 200 mL/h over the next 16 hours and then ultimately decrease to 150 mL/h until the patient is tolerating a diet. 2. Would continue the insulin drip as part of the treatment for diabetic ketoacidosis and placement on long-acting insulin prior to discontinuation of the insulin drip. 3. Would agree with placing the patient on fenofibrate today. 4. Pain control per primary team. 5. Would consider advancing her diet today to a clear liquid diet and then, advance as tolerated. We will continue to follow. Please call with any questions. Job ID: [id number]
[2019-08-28] MEDS: Ondansetron PF 4 MG/2 ML Vial IVP PRN ×2 (15:55→21:35)
--- NOTE | 2019-08-28 16:34 | PDOC.HOSPP ---
- Subjective Encounter Date: 08/28/19 Encounter Time: 13:30 Subjective: abd pain is better, no nausea or headache - Objective Vital Signs & Weight: Vital Signs (12 hours) Temp Pulse Ox 08/28/19 15:35 98.4 F 08/28/19 11:10 98.0 F 08/28/19 08:00 99 08/28/19 07:47 99.8 F H Weight Weight 176 lb 6.4 oz Most Recent Monitor Data Heart Rate from ECG 110 NIBP 137/100 NIBP BP-Mean 112 Respiration from ECG 22 SpO2 98 I&O: 08/27/19 08/28/19 08/29/19 06:59 06:59 06:59 Intake Total 1380 2830 3242 Output Total 700 3450 800 Balance 680 -620 2442 Result Diagrams: 08/28/19 04:59 08/28/19 04:59 Additional Labs: Accuchecks 08/28/19 08/28/19 08/28/19 12:26 11:08 09:58 POC Glucose 218 H 199 H 174 H 08/28/19 08/28/19 08/28/19 08:17 07:02 06:09 POC Glucose 179 H 181 H 200 H 08/28/19 08/28/19 08/28/19 05:08 04:07 03:06 POC Glucose 201 H 200 H 182 H 08/28/19 08/28/19 08/28/19 02:05 01:17 00:04 POC Glucose 145 H 156 H 162 H 08/27/19 08/27/19 08/27/19 22:59 22:07 21:14 POC Glucose 161 H 166 H 175 H 08/27/19 08/27/19 08/27/19 20:12 18:19 17:17 POC Glucose 164 H 168 H 167 H Hospitalist ROS - Medication Medications: Active Medications Generic Name Dose Route Start Last Admin Trade Name Freq PRN Reason Stop Dose Admin Acetaminophen 650 mg 08/27/19 04:06 08/28/19 10:02 Tylenol PO 650 mg Q4H PRN Administration Headache/Fever/Mild Pain (1-3) Enoxaparin Sodium 40 mg 08/27/19 09:00 08/28/19 08:34 Lovenox SC 40 mg 0900 TINA Administration Famotidine 20 mg 08/27/19 09:00 08/28/19 08:34 Pepcid PO 20 mg BID TINA Administration Fenofibrate 145 mg 08/28/19 09:00 08/28/19 08:38 Tricor PO 145 mg DAILY TINA Administration Sodium Chloride 1,000 mls @ 100 mls/hr 08/28/19 11:45 08/28/19 12:47 Normal Saline 0.9% IV 1,000 mls .Q10H TINA Administration Morphine Sulfate 2 mg 08/27/19 15:33 08/27/19 21:14 Morphine SLOW IVP 2 mg Q4H PRN Administration Severe Pain (7-10) Ondansetron HCl 4 mg 08/27/19 04:06 08/28/19 15:55 Zofran IVP 4 mg Q6H PRN Administration Nausea/Vomiting Promethazine HCl 25 mg 08/27/19 09:38 08/27/19 18:01 Phenergan IM/IV 25 mg Q6H PRN Administration Nausea/Vomiting Tramadol HCl 50 mg 08/27/19 15:34 08/28/19 01:30 Ultram PO 50 mg Q6H PRN Administration Moderate Pain (4-6) - Exam General Appearance: NAD, awake alert Eye: PERRL, anicteric sclera ENT: no oropharyngeal lesions, moist mucosa Neck: supple, no JVD Heart: RRR, no murmur Respiratory: no wheezes, no rales Gastrointestinal: soft, non-distended, normal bowel sounds, no guarding, no rigidity Extremities: no edema Neurological: cranial nerve grossly intact, no focal deficits Psychiatric: normal affect, A&O x 3 Hosp A/P (1) Acute pancreatitis Code(s): K85.90 - ACUTE PANCREATITIS WITHOUT NECROSIS OR INFECTION, UNSP Status: Acute Qualifiers: (2) Hypertriglyceridemia Code(s): E78.1 - PURE HYPERGLYCERIDEMIA Status: Acute (3) Adnexal mass Code(s): N94.9 - UNSP COND ASSOC W FEMALE GENITAL ORGANS AND MENSTRUAL CYCLE Status: Chronic (4) Anemia Code(s): D64.9 - ANEMIA, UNSPECIFIED Status: Chronic Qualifiers: (5) Diabetes mellitus Code(s): E11.9 - TYPE 2 DIABETES MELLITUS WITHOUT COMPLICATIONS Status: Chronic Qualifiers: Diabetes mellitus type: type 1 (6) HTN (hypertension) Code(s): I10 - ESSENTIAL (PRIMARY) HYPERTENSION Status: Chronic Qualifiers: - Plan triglyceride levels are down to 300's now, dc insulin drip, is on tricor, fish oil, crestor. on NS at 100mls/hr watch for hypoglycemia CT abd results reviewed, has large pseudocyst which likely needs to be drained when current flare up settles down was not taking tricor after her last hospitalization to f/u with outpt Obgyn for chronic right adnexal cyst can be transfered to medical floor clear liq diet, lantus home dose hemostable except for sinus tach which is better than yesterday. To ambulate as tolerated, gave full updates to patient and mother at bedside
[2019-08-28] MEDS: metFORMIN 500 MG TAB PO SCH (17:32)
[2019-08-28] MEDS: Promethazine HCl 25 MG/ML VIAL IM/IV PRN (19:08)
[2019-08-28] MEDS ORDERED: Rosuvastatin 20 MG TAB PO SCH (21:00)
[2019-08-28] MEDS ORDERED: Fish Oil 1,000 MG CAP PO SCH (21:00)
[2019-08-29 05:41] LABS: #Eosinphils 0.1 thou/uL (0.0-0.7); #Monocytes 0.5 thou/uL (0.11-0.59); #Neutrophils 7.2 thou/uL (1.40-6.50); %Basophils 0.1 % (0.0-1.0); %Eosinophils 0.7 % (0.0-10.0); %Lymphocytes 20.4 % (21.0-51.0); %Monocytes 4.9 % (0.0-10.0); %Neutrophils 73.9 % (42.0-75.0); Hemoglobin 10.8 g/dL (12.0-16.0); Mean Corpuscular HGB CONC 33.7 g/dL (32.0-36.0); Mean Corpuscular Hemoglobin 27.7 pg (27.0-31.0); Mean Corpuscular Volume 82.1 fL (78.0-98.0); Mean Platelet Volume 9.6 fL (7.4-10.4); Platelet Count 111 thou/uL (130-400); RBC Distribution Width 12.9 % (11.5-14.5); Red Blood Cell (RBC) Count 3.92 mill/uL (4.20-5.40); White Blood Cell (WBC) Count 9.8 thou/uL (4.8-10.8)
[2019-08-29 06:06] LABS: ALT (SGPT) 7 U/L (8-55); AST (SGOT) 9 U/L (5-34); Albumin 3.5 g/dL (3.5-5.0); Alkaline Phosphatase 73 U/L (40-110); Anion Gap 12 mmol/L (10-20); BUN (Urea Nitrogen) Less than 4 mg/dL (7.0-18.7); Bilirubin, Total 0.7 mg/dL (0.2-1.2); Calc. Creatinine Clearance 220 mL/min (70-130); Calcium 8.7 mg/dL (7.8-10.44); Carbon Dioxide 23 mmol/L (22-29); Chloride 101 mmol/L (98-107); Estimated GFR-MDRD Greater than 90; Globulin 2.8 g/dL (2.4-3.5); Glucose 185 mg/dL (70-105); Lipase 59 U/L (8-78); Magnesium 1.8 mg/dL (1.6-2.6); Phosphorus 2.4 mg/dL (2.3-4.7); Potassium 3.6 mmol/L (3.5-5.1); Protein, Total 6.3 g/dL (6.0-8.3); Sodium 132 mmol/L (136-145); Triglycerides 298 mg/dL (Less than 150)
[2019-08-29] MEDS: Fenofibrate Nanocrystallized 145 MG TAB PO SCH (08:07)
[2019-08-29] MEDS: Sodium Chloride 0.9% 1,000 ML IV SCH (08:07)
[2019-08-29] MEDS: Famotidine 20 MG TAB PO SCH (08:08)
[2019-08-29] MEDS: metFORMIN 500 MG TAB PO SCH (08:08)
[2019-08-29] MEDS: Enoxaparin Sodium 40 MG/0.4 ML SYRINGE SC SCH (08:10)
[2019-08-29] MEDS ORDERED: Insulin Glargine 15 UNITS in Pre-Filled Syringe 1 EACH SC SCH (09:00)
[2019-08-29] MEDS ORDERED: Non-Formulary Item 1 EACH (Insulin Detemir [Levemir] 15 UNIT) SQ SCH (09:00)
[2019-08-29 11:20] VITALS: BP 143/94; TEMP 98.6
--- NOTE | 2019-08-29 12:13 | PDOC.HOSPP ---
- Subjective Encounter Date: 08/29/19 Encounter Time: 12:10 Subjective: Patient seen and examined for DKA/Acute Pancreatitis. No new complaints. No overnight events - Objective Vital Signs & Weight: Vital Signs (12 hours) Temp Pulse Resp BP Pulse Ox 08/29/19 11:00 98.6 F 108 H 19 143/94 H 99 08/29/19 07:10 97.8 F 109 H 18 144/96 H 97 08/29/19 04:02 99.3 F 112 H 18 139/93 H 98 08/29/19 00:11 98.9 F 119 H 18 132/90 97 Weight Weight 176 lb 6.4 oz Most Recent Monitor Data Heart Rate from ECG 123 NIBP 137/100 NIBP BP-Mean 86 Respiration from ECG 32 SpO2 98 I&O: 08/28/19 08/29/19 08/30/19 06:59 06:59 06:59 Intake Total 2830 7258 Output Total 3450 2450 Balance -620 4808 Result Diagrams: 08/29/19 05:01 08/29/19 05:01 Additional Labs: Accuchecks 08/29/19 08/29/19 08/28/19 11:42 04:06 19:26 POC Glucose 198 H 170 H 201 H 08/28/19 08/28/19 16:33 12:26 POC Glucose 199 H 218 H Hospitalist ROS - Review of Systems Respiratory: denies: cough, dry, shortness of breath, hemoptysis, SOB with excertion, pleuritic pain, sputum, wheezing, other Cardiovascular: denies: chest pain, palpitations, orthopnea, paroxysmal noc. dyspnea, edema, light headedness, other Gastrointestinal: denies: nausea, vomiting, abdominal pain, diarrhea, constipation, melena, hematochezia, other - Medication Medications: Active Medications Generic Name Dose Route Start Last Admin Trade Name Freq PRN Reason Stop Dose Admin Acetaminophen 650 mg 08/27/19 04:06 08/28/19 10:02 Tylenol PO 650 mg Q4H PRN Administration Headache/Fever/Mild Pain (1-3) Enoxaparin Sodium 40 mg 08/27/19 09:00 08/29/19 08:10 Lovenox SC Not Given 0900 [facility] Famotidine 20 mg 08/27/19 09:00 08/29/19 08:08 Pepcid PO 20 mg BID TINA Administration Fenofibrate 145 mg 08/28/19 09:00 08/29/19 08:07 Tricor PO 145 mg DAILY TINA Administration Fish Oil 1,000 mg 08/28/19 21:00 08/28/19 20:00 Fish Oil PO 1,000 mg HS TINA Administration Sodium Chloride 1,000 mls @ 100 mls/hr 08/28/19 11:45 08/29/19 08:07 Normal Saline 0.9% IV 1,000 mls .Q10H TINA Administration Insulin Glargine 15 units/ 0.15 mls @ 0 mls/hr 08/29/19 09:00 08/29/19 08:08 Miscellaneous Medication SC 0.15 mls DAILY TINA Administration Insulin Human Lispro 0 units 08/28/19 11:40 08/28/19 21:35 Humalog SC 2 unit .BEDTIME SLIDING SC PRN Administration Bedtime Correctional Scale Metformin HCl 500 mg 08/28/19 17:00 08/29/19 08:08 Glucophage PO 500 mg BID-WM TINA Administration Morphine Sulfate 2 mg 08/27/19 15:33 08/27/19 21:14 Morphine SLOW IVP 2 mg Q4H PRN Administration Severe Pain (7-10) Ondansetron HCl 4 mg 08/27/19 04:06 08/28/19 21:35 Zofran IVP 4 mg Q6H PRN Administration Nausea/Vomiting Promethazine HCl 25 mg 08/27/19 09:38 08/28/19 19:08 Phenergan IM/IV 25 mg Q6H PRN Administration Nausea/Vomiting Rosuvastatin Calcium 20 mg 08/28/19 21:00 08/28/19 20:00 Crestor PO 20 mg HS TINA Administration Tramadol HCl 50 mg 08/27/19 15:34 08/28/19 19:41 Ultram PO 50 mg Q6H PRN Administration Moderate Pain (4-6) - Exam General Appearance: NAD Neck: supple, no JVD Heart: RRR, no gallops Respiratory: CTAB, no rales Gastrointestinal: soft, non-tender, non-distended, normal bowel sounds Extremities: no edema Hosp A/P - Plan DVT proph w/lovenox Severe Sepsis Acute Pancreatitis DKA Hypertriglyceridemia Obesity BMI 34.5 Hyponatremia DM type 1 PLAN: Cont Tricor DC IVF after this bag Restart Lisinopril in AM Cont other meds AM labs DC home in 24-48 hr if ok with GI
--- NOTE | 2019-08-29 13:50 | DIS ---
DATE OF ADMISSION: 08/27/2019 DATE OF DISCHARGE: 08/29/2019 DISCHARGE DISPOSITION: Home. FOLLOWUP: Follow up with primary care physician, Dr. Kumar in 1 week. The patient was seen and examined on the day of discharge. Please refer to my progress note for detail. INPATIENT AUTOMATION CONTROLS ENGINEER: Gastroenterology, Dr. Funk. BRIEF HOSPITAL COURSE: The patient is a 28-year-old female with diabetes mellitus type 1 and hypertriglyceridemia, presented to the hospital with nausea, vomiting, and abdominal discomfort of one day duration. Workup was consistent with diabetic ketoacidosis with acute pancreatitis. Triglycerides on admission were greater than 3800. Lipase on admission was 451. Her bicarbonate on admission was 18. She was monitored in the intermediate care unit. She was started on insulin drip along with IV fluids. Due to WBC of 21.7 with 16% bandemia, she was started on empiric antibiotics. Blood cultures and urine cultures, however, remain negative. Antibiotics were discontinued. She was later transferred to medical floor. Her lipase is normalized. Her triglyceride has improved to 298 this morning. She has been cleared by Gastroenterology for discharge. She has been started on TriCor along with fish oil. She was advised to follow up with primary care physician next week. We will hold Crestor for now due to increased risk of myopathy. She appears stable for discharge. Hemoglobin A1c 8.2. FINAL DIAGNOSES: 1. Acute pancreatitis secondary to hypertriglyceridemia. 2. Severe sepsis secondary to #1. Antibiotics have been discontinued. 3. Diabetic ketoacidosis. 4. Dehydration. 5. Suspected urinary tract infection on admission, ruled out. 6. Hyponatremia. 7. Hypophosphatemia, replaced. 8. Hypomagnesemia, replaced. PLAN: Plan of care was discussed with the patient in detail. She stated understanding. Job ID: [id number]
--- NOTE | 2019-08-29 23:23 | PRG ---
DATE OF SERVICE: SUBJECTIVE: Ms. Garsia feels well today. She has no abdominal pain, nausea, or vomiting. OBJECTIVE: VITAL SIGNS: Temperature 98.6, pulse 108, and blood pressure 143/94. GENERAL: She is in no acute distress. Alert and oriented x3. LUNGS: Clear to auscultation bilaterally. HEART: Regular rate and rhythm without murmur. ABDOMEN: Soft, nontender, and nondistended. Bowel sounds are present. EXTREMITIES: No lower extremity edema. LABORATORY DATA: White blood cell count 9.8, hemoglobin 10.8, and platelets 111. Creatinine 0.49. Triglycerides are down to 298 from greater than 3800. IMPRESSION: Hypertriglyceridemia-induced acute pancreatitis. This is recurrent. She is doing better with fluids and restarting fenofibrate. She had been on insulin drip as well. Overall, she appears to have had a mild pancreatitis. Primary treatment at this point is prevention of recurrence by controlling her triglycerides. RECOMMENDATIONS: 1. Low-fat diet. 2. Fenofibrate. 3. Recommend outpatient evaluation by Endocrinology. 4. She is discharging home today. Job ID: [id number]
[2019-08-30] MEDS ORDERED: Lisinopril 5 MG TAB PO SCH (09:00)
--- NOTE | 2019-08-31 07:07 | PQF ---
[employer] Academic Support Assistant [employer] THEO Mcgee DEYSI ROMANO MD [id number] CLINICAL DOCUMENTATION CLARIFICATION FORM: POST DISCHARGE Addendum to original discharge summary date: ____ Late entry note date: __ DATE: 08/31/2019 ATTN: DEYSI ROMANO MD Please exercise your independent, professional judgment in responding to the clarification form. Clinical indicators are provided on the bottom of this form for your review Please check appropriate box(s): [ ] Acute Pancreatitis was Infectious [x ] Acute Pancreatitis was non Infectious [ ] Other diagnosis [ ] Unable to determine In addition, please specify: Present on Admission (POA): [ x ] Yes [ ] No [ ] Unable to determine For continuity of documentation, please document condition throughout progress notes and discharge summary. Thank You. CLINICAL INDICATORS - SIGNS / SYMPTOMS / LABS Acute pancreatitis 2/2 elevated triglycerides - Documented in H&P on 08/27 by DEYSI ROMANO MD WBC 21.7 on 08/26 - Documented in Vital and Signs Triglycerides 3800 on 08/26 - Documented in Vital and Signs Lipase level 451 on 08/26 - Documented in Vital and Signs Hypertriglyceridemia - Documented in Hospital PNs on 08/27 by Jace Gomez when compared to previous hospitalization the current symptoms are consistant with Acut epancreatitis 2/2 hypertriglyceridemia - Documented in Consultation on 08/27 by Tanya White [employer] DKA - Documented in H&P on 08/27 by DEYSI ROMANO MD Severe sepsis - Documented in H&P on 08/27 by DEYSI ROMANO MD TREATMENT: Patient monitored in the intermediate care unit - Documented in H&P on 08/27 by DEYSI ROMANO MD will check triglycerides twice a day - Documented in H&P on 08/27 by DEYSI ROMANO MD will recheck basic metabolic profile - Documented in H&P on 08/27 by DEYSI ROMANO MD Consultation [employer] Academic Support Assistant Crystal Reports Winform Viewer (This form is maintained as a part of the permanent medical record) 2014 [email or web address], [email or web address]. All Rights Reserved [email or web address] to (do) [not provided] DARYA
== END 2019-08-29 14:21 | disposition home or self-care (01) | DRG 438 ==
LOC: ERS 21:20 → IMCU/EMU 08-27 02:51 → T4-B 08-28 19:02
PROVIDERS: ADMIT Internal Medicine; ATTEND Internal Medicine
DX: K85.90 Acute pancreatitis without necrosis or infection, unspecified (principal); A41.9 Sepsis, unspecified organism; E11.10 Type 2 diabetes mellitus with ketoacidosis without coma; R65.20 Severe sepsis without septic shock; E87.1 Hypo-osmolality and hyponatremia; E78.1 Pure hyperglyceridemia; D64.9 Anemia, unspecified; E83.39 Other disorders of phosphorus metabolism; E83.42 Hypomagnesemia; E86.0 Dehydration; Z90.49 Acquired absence of other specified parts of digestive tract; Z90.89 Acquired absence of other organs; Z79.84 Long term (current) use of oral hypoglycemic drugs
CPT/HCPCS: 36415; 36416; 74177; 80048; 80053; 81003; 81015; 81025; 82010; 82330; 82803; 83036; 83690; 83735; 84100; 84478; 85025; 87040; 87086; 96361; 96365; 96366; 96367; 96368; 96372; 96375; 96376; J1170; J1650; J1815; J2185; J2270; J2405; J2550; J2765; J3010; J3480; J3490; Q9966

== ENCOUNTER 2020-08-25 21:53 | Inpatient (IN) | payer OTHER ==
[2020-08-25 22:23] LABS: Bilirubin Negative (Negative); Blood, Urine Trace (Negative); Clarity Clear (Clear); Glucose, Urine (Dipstick) Greater than 1000 mg/dL (Negative); Ketone, Urine Greater than 150 mg/dL (Negative); Leukocyte Negative Leu/uL (Negative); Nitrite Negative (Negative); Protein, Urine (Dipstick) 50 mg/dL (Neg-Trace); Specific Gravity, Urine 1.037 (1.002-1.036); Squamous Epithelial 0-3 HPF (0-3); Urobilinogen Normal mg/dL (Less than 2); WBC/HPF 0-3 HPF (0-3); Yeast-Budding 1+ HPF (None Seen); pH, Urine 5.5 (5.0-9.0)
[2020-08-25 22:29] LABS: Bacteria/HPF Rare-Few HPF (None Seen)
[2020-08-25 22:43] LABS: Mean Corpuscular Volume 68.7 fL (78.0-98.0)
[2020-08-25] MEDS ORDERED: Ondansetron PF 4 MG/2 ML Vial ONE (22:55)
[2020-08-25 22:57] LABS: #Lymphocytes 1.6 thou/uL (1.20-3.40); #Monocytes 0.6 thou/uL (0.11-0.59); #Neutrophils 14.5 thou/uL (1.40-6.50); %Basophils 0.3 % (0.0-1.0); %Eosinophils 0.1 % (0.0-10.0); %Lymphocytes 9.5 % (21.0-51.0); %Monocytes 3.7 % (0.0-10.0); %Neutrophils 86.4 % (42.0-75.0); Hemoglobin 13.1 g/dL (12.0-16.0); MDiff Complete? YES; Mean Corpuscular Hemoglobin 25.4 pg (27.0-31.0); Microcytosis SLIGHT = 6-15 cells (100X) (0-5/hpf); Platelet Count 195 thou/uL (130-400); Platelet Morphology Comment Appears Adequate; RBC Distribution Width 16.6 % (11.5-14.5); Red Blood Cell (RBC) Count 5.18 mill/uL (4.20-5.40); White Blood Cell (WBC) Count 16.8 thou/uL (4.8-10.8)
[2020-08-25 23:11] LABS: BHCG - Serum Negative (NEGATIVE); Pregs Control Background? CLEAR/WHITE (CLR/WHITE); Pregs Control Bar Appear? YES (CONTROL BAR)
[2020-08-26] MEDS ORDERED: Morphine 4 MG/ML VIAL ONE (01:09)
[2020-08-26] MEDS ORDERED: Ondansetron PF 4 MG/2 ML Vial ONE (01:10)
[2020-08-26 01:18] LABS: Chloride 99 mmol/L (98-107); Sodium 130 mmol/L (136-145)
[2020-08-26 01:19] LABS: Alkaline Phosphatase 104 U/L (40-110); Bilirubin, Direct Less than 0.1 mg/dL (0.1-0.3); Bilirubin, Total 0.6 mg/dL (0.2-1.2); Globulin 6.3 g/dL (2.4-3.5); Protein, Total 10.3 g/dL (6.0-8.3)
[2020-08-26 01:20] LABS: ALT (SGPT) 13 U/L (8-55); AST (SGOT) 77 U/L (5-34)
[2020-08-26 01:21] LABS: Carbon Dioxide 8 mmol/L (22-29)
[2020-08-26 01:47] LABS: Cardiac Risk 23.1 (Less than 4.5); Cholesterol 508 mg/dl (< 200 Desired); HDL Cholesterol 22 mg/dL (>60 Neg Risk)
[2020-08-26 01:54] LABS: Base Excess-Venous -8.7 mmol/L (-2.0 to 3.0); Bicarbonate (HCO3v) 15.4 mmol/L (22.0-28.0); Calcium, Ionized 1.03 mmol/L (1.15-1.33); Chloride 109 mmol/L (98-107); Hemoglobin - Calc 13.4 g/dL (12.0-16.0); Potassium 4.5 mmol/L (3.5-5.1); Sodium 136 mmol/L (138-145); T. Carbon Dioxide 16.3 mmol/L (22.0-28.0); vO2 Saturation-calc 97.3 % (60.0-85.0)
[2020-08-26] MEDS ORDERED: INSULIN REGULAR IN 0.9 % NACL 100 UNIT/100 ML BAG ONE ×2 (03:02→03:13)
[2020-08-26] MEDS ORDERED: Promethazine HCl 12.5 MG SUPP ONE (03:26)
[2020-08-26] MEDS ORDERED: Promethazine HCl 25 MG/ML VIAL ONE (03:27)
[2020-08-26] MEDS ORDERED: D5 1/2 NS w/20 mEq KCL 1,000 ML IV PRN (03:31)
[2020-08-26] MEDS ORDERED: Electrolyte Replacement Protoc 1 EACH EACH IVPB SCH (03:31)
[2020-08-26] MEDS ORDERED: NS 0.9% w/ 20 MEQ KCL 1,000 ML IV PRN ×2 (03:31)
[2020-08-26] MEDS ORDERED: Dextrose 5 %-0.45 % NaCl 1,000 ML IV PRN (03:31)
[2020-08-26] MEDS ORDERED: Sodium Chloride 0.9% 1,000 ML IV PRN ×4 (03:31)
--- NOTE | 2020-08-26 03:37 | PDOC.HHP ---
Hospitalist HPI - History of Present Illness Abdominal pain, nausea and vomiting History of Present Illness: 29-year-old woman with a history of type 1 diabetes on Levemir insulin presented to the emergency department with a complaint of nausea and vomiting and abdominal pain. Patient denied any fever chills or cough or chest pain or diarrhea. She was concerned that she may also be developing acute pancreatitis based on the history of recurrent pancreatitis. Blood work in the emergency department demonstrated DKA with a bicarb of 8, pH of 7.3. High serum ketones indicating DKA. Her lipase level is also elevated to 496. Cholesterol level is 503. UA shows no evidence of UTI though positive for yeast. DKA protocol is initiated in the ED and patient admitted for further management. Hospitalist ROS - Review of Systems Other: Except as documented, all other systems reviewed and negative. - Medication Medications: Medication Instructions Recorded Confirmed Type metFORMIN [Glucophage] 500 mg PO BID-WM #0 tab 06/10/16 08/27/19 Rx Lisinopril [Zestril] 5 mg PO DAILY 12/13/18 08/27/19 History Insulin Detemir [Levemir] 15 unit SQ DAILY 08/27/19 08/27/19 History Iron 65 mg PO DAILY 08/27/19 08/27/19 History Fenofibrate Nanocrystallized 145 mg PO DAILY #30 tab 08/29/19 Rx [Tricor] Fish Oil 1,000 mg PO HS #30 cap 08/29/19 Rx Hospitalist History - Past Medical History Other Medical History: DM type I, hyperlipidemia, history of pancreatitis. - Past Surgical History Past Surgical History: reports: Appendectomy, Tonsillectomy - Family History Family History: reports: diabetes mellitus (Father had type 2 diabetes.) - Social History Smoking Status: Never smoker Alcohol: reports: Occassional Drugs: reports: none - Exam General Appearance: NAD, awake alert Eye: PERRL, anicteric sclera ENT: normocephalic atraumatic, no oropharyngeal lesions, moist mucosa Neck: supple, symmetric, no JVD Heart: RRR, no murmur, no gallops Respiratory: CTAB, no wheezes, no rales, no ronchi Gastrointestinal: soft, non-distended, normal bowel sounds, tender to palpation (Mild epigastric tenderness.) Skin: normal turgor, no rashes Neurological: cranial nerve grossly intact, no weakness, no focal deficits Musculoskeletal: normal tone, normal strength Psychiatric: normal affect, normal behavior, A&O x 3 Hospitalist Results - Labs Result Diagrams: 08/25/20 22:18 08/26/20 00:58 Lab results: WBC 16.8 thou/uL (4.8-10.8) H 08/25/20 22:18 Hgb 13.1 g/dL (12.0-16.0) 08/25/20 22:18 Hct 35.6 % (36.0-47.0) L 08/25/20 22:18 MCV 68.7 fL (78.0-98.0) L 08/25/20 22:18 Plt Count 195 thou/uL (130-400) 08/25/20 22:18 Neutrophils % 86.4 % (42.0-75.0) H 08/25/20 22:18 VBG pCO2 28.0 mmHg (40.0-50.0) L 08/26/20 01:45 VBG pO2 96.6 mmHg (35.0-45.0) H 08/26/20 01:45 Sodium 130 mmol/L (136-145) L 08/26/20 00:58 Potassium TNP 08/26/20 00:58 Chloride 99 mmol/L (98-107) 08/26/20 00:58 Carbon Dioxide 8 mmol/L (22-29) L* 08/26/20 00:58 BUN TNP 08/26/20 00:58 Creatinine TNP 08/26/20 00:58 Glucose TNP 08/26/20 00:58 Calcium TNP 08/26/20 00:58 Total Bilirubin 0.6 mg/dL (0.2-1.2) 08/26/20 00:58 AST 77 U/L (5-34) H 08/26/20 00:58 ALT 13 U/L (8-55) 08/26/20 00:58 Alkaline Phosphatase 104 U/L (40-110) 08/26/20 00:58 Serum Total Protein 10.3 g/dL (6.0-8.3) H 08/26/20 00:58 Albumin 4.0 g/dL (3.5-5.0) 08/26/20 00:58 Lipase 496 U/L (8-78) H 08/25/20 23:14 Urine Ketones Greater than 150 mg/dL (Negative) A 08/25/20 22:03 Urine Blood Trace (Negative) A 08/25/20 22:03 Urine Nitrite Negative (Negative) 08/25/20 22:03 Ur Leukocyte Esterase Negative Omar/uL (Negative) 08/25/20 22:03 Urine RBC 4-6 HPF (0-3) A 08/25/20 22:03 Urine WBC 0-3 HPF (0-3) 08/25/20 22:03 Ur Squamous Epith Cells 0-3 HPF (0-3) 08/25/20 22:03 Urine Bacteria Rare-Few HPF (None Seen) 08/25/20 22:03 - Radiology Interpretation US - abdomen Status: other (Result is pending.) Hospitalist H&P A/P - Problem (1) DKA, type 1 Code(s): E10.10 - TYPE 1 DIABETES MELLITUS WITH KETOACIDOSIS WITHOUT COMA Status: Chronic Qualifiers: Diabetes mellitus complication detail: without coma Qualified Code(s): E10.10 - Type 1 diabetes mellitus with ketoacidosis without coma (2) Acute pancreatitis Code(s): K85.90 - ACUTE PANCREATITIS WITHOUT NECROSIS OR INFECTION, UNSP Status: Acute Qualifiers: (3) Hyperlipidemia Code(s): E78.5 - HYPERLIPIDEMIA, UNSPECIFIED Status: Acute - Plan Plan: Admit to CCU. DKA protocol initiated in the ED with insulin drip, IV hydration. Monitor BMP. DKA protocol. At the moment no evidence of infection, and would hold off antibiotics. Replete electrolytes as needed. Check lipid profile. Monitor triglyceride level daily if patient has hypertriglyceridemia Insulin drip should help with hypertriglyceridemia. Monitor lipase level daily. Keep n.p.o. for now.
[2020-08-26] MEDS ORDERED: HUMULIN R 100 UNITS in Sodium Chloride 0.9% 100 ML IVPB SCH (03:45)
[2020-08-26] MEDS ORDERED: Morphine 4 MG/ML VIAL SLOW IVP PRN (05:27)
[2020-08-26] MEDS ORDERED: Ondansetron PF 4 MG/2 ML Vial IVP PRN (05:30)
[2020-08-26] MEDS ORDERED: Ondansetron ODT 4 MG TAB SL PRN (05:30)
[2020-08-26 08:18] VITALS: BMI 30.2
[2020-08-26] MEDS ORDERED: FLU VACC QS2020-21(6MOS UP)/PF 60 MCG/0.5 ML SYRINGE IM ONE (08:30)
--- NOTE | 2020-08-26 08:44 | ULT ---
PRELIMINARY REPORT/[facility]/EMERGENCY AFTER HOURS PROCEDURE: EXAM: US Abdomen Limited, Right Upper Quadrant. CLINICAL HISTORY: HX: ABD PAIN. SEE NOTES ON LAST IMAGE. THANKS TECHNIQUE: Real-time ultrasound of the right upper quadrant with image documentation. COMPARISON: None provided. FINDINGS: LIVER: Unremarkable. GALLBLADDER: No gallstone. No wall thickening. No pericholecystic fluid. COMMON BILE DUCT: No dilation. Measures 2.3 mm PANCREAS: Mostly obscured by overlying bowel gas. RIGHT KIDNEY: Unremarkable. No hydronephrosis. Measures 13.9 cm IMPRESSION: Unremarkable right upper quadrant ultrasound. ELECTRONICALLY SIGNED BY: Kali Zaman MD Aug 26, 2020 1:29:29 AM CDT FINAL REPORT ULTRASOUND GALLBLADDER RIGHT UPPER QUADRANT: CLINICAL HISTORY: Upper abdominal pain.. COMPARISON: None. FINDINGS: Pancreas:Obscured by bowel gas. Liver:Hepatic parenchyma has a normal echotexture. No hepatic masses or intrahepatic biliary dilatati on. Gallbladder: No sonographic evidence of cholelithiasis, gallbladder wall thickening or pericholecysti c fluid. Adkins's sign:Negative. Portal Vein: Patent. Appropriate directional flow. Bile ducts: 0.23 cm common bile duct diameter. Right kidney: No hydronephrosis. Right kidney measures 13.9 cm in length. IMPRESSION: 1. This report is in agreement with initial report by [facility]. 2. No sonographic evidence of cholelithiasis or cholecystitis. Transcribed Date/Time: 08/26/2020 9:49 AM
[2020-08-26] MEDS: Sodium Chloride 0.9% 1,000 ML IV SCH ×2 (09:28→13:20)
--- NOTE | 2020-08-26 09:44 | PDOC.HOSPP ---
- Subjective Encounter Date: 08/26/20 Encounter Time: 09:35 Subjective: f/u for DKA/Pancreatitis on current DKA protocol. Feels better currently and nausea and vomiting resolved. Last episode of DKA about 1 year ago. - Objective Vital Signs & Weight: Vital Signs (12 hours) Temp 08/26/20 07:35 99.6 F Weight Weight 155 lb Most Recent Monitor Data Heart Rate from ECG 115 NIBP 124/72 NIBP BP-Mean 89 Respiration from ECG 29 SpO2 100 Result Diagrams: 08/25/20 22:18 08/26/20 00:58 Additional Labs: Accuchecks 08/26/20 08/26/20 08/26/20 09:02 08:09 07:08 POC Glucose 164 H 167 H 191 H 08/26/20 08/26/20 08/26/20 06:04 03:57 02:56 POC Glucose 215 H 258 H 260 H 08/26/20 08/26/20 08/25/20 01:47 00:23 21:58 POC Glucose 278 H 261 H 289 H Laboratory Tests 08/25/20 08/26/20 08/26/20 22:18 00:54 00:58 POC VBG pH Triglycerides TNP Cholesterol 508 H HDL Cholesterol 22 Serum , Qual Negative B-Hydroxybutyrate 4.83 H 08/26/20 08/26/20 08/26/20 01:45 04:16 07:49 POC VBG pH 7.349 Triglycerides Cholesterol HDL Cholesterol Serum , Qual B-Hydroxybutyrate 4.72 H 1.86 H Radiology Reviewed by me: Yes (ABD sono - negative) EKG Reviewed by me: Yes (Tele - sinus tachycardia) Hospitalist ROS - Medication Medications: Active Medications Generic Name Dose Route Start Last Admin Trade Name Freq PRN Reason Stop Dose Admin Potassium Chloride/Sodium Chloride 1,000 mls @ 500 mls/hr 08/26/20 03:31 08/26/20 06:36 Ns 0.9% W/ 20 Meq Kcl IV 1,000 mls .Q2H PRN Administration Step 2 of DKA Protocol Protocol Sodium Chloride 1,000 mls @ 150 mls/hr 08/26/20 05:30 08/26/20 09:28 Normal Saline 0.9% IV 08/26/20 14:45 Not Given .Q6H40M TINA - Exam General Appearance: NAD, awake alert Eye: PERRL, anicteric sclera ENT: normocephalic atraumatic, no oropharyngeal lesions Neck: supple, symmetric, no JVD, no thyromegaly, no lymphadenopathy Heart: no murmur, no gallops, no rubs, normal peripheral pulses Heart - other findings: S1, S2, tachycardic Respiratory: CTAB, no wheezes, no rales, no ronchi, normal chest expansion Gastrointestinal: soft, non-distended, normal bowel sounds, no palpable masses Gastrointestinal - other findings: mild TTP Extremities: no cyanosis, no clubbing, no edema Skin: normal turgor, no lesions Neurological: cranial nerve grossly intact, no new deficit Musculoskeletal: normal tone, normal strength, no muscle wasting Psychiatric: normal affect, A&O x 3 Hosp A/P (1) DKA, type 1 Code(s): E10.10 - TYPE 1 DIABETES MELLITUS WITH KETOACIDOSIS WITHOUT COMA Status: Acute Qualifiers: Diabetes mellitus complication detail: without coma Qualified Code(s): E10.10 - Type 1 diabetes mellitus with ketoacidosis without coma Plan: Continue DKA protocol, serial BMP, IVF's, serial beta-hydroxybutyrate (2) UTI (urinary tract infection) Status: Acute Plan: Suspected, start Rocephin 2mg IV, await final Ucx results (3) Hyperlipidemia Code(s): E78.5 - HYPERLIPIDEMIA, UNSPECIFIED Status: Acute Plan: Continue Insulin gtt, hold Fenofibrate for 24h due to N/V (4) Acute pancreatitis Code(s): K85.90 - ACUTE PANCREATITIS WITHOUT NECROSIS OR INFECTION, UNSP Status: Acute Qualifiers: Plan: NPO except sips of H2O, serial lipase, Abd sono negative for obstruction (5) Sinus tachycardia Code(s): R00.0 - TACHYCARDIA, UNSPECIFIED Status: Acute Plan: Secondary to #1, continue IVF's - Plan 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
[2020-08-26] MEDS ORDERED: Acetaminophen 500 MG TAB PO PRN (09:59)
[2020-08-26] MEDS ORDERED: Ketorolac Tromethamine 30 MG/ML VIAL IVP PRN (09:59)
[2020-08-26] MEDS ORDERED: Acetaminophen 500 MG TAB PO SCH (10:00)
[2020-08-26] MEDS: cefTRIAXone\\ROCEPHIN 2 GM in Sodium Chloride 0.9% 100 ML IVPB SCH (10:21)
[2020-08-26 10:23] LABS: BUN (Urea Nitrogen) 4 mg/dL (7.0-18.7); Calc. Creatinine Clearance 159 mL/min (70-130); Calcium 7.9 mg/dL (7.8-10.44); Carbon Dioxide Less than 8 mmol/L (22-29); Chloride 111 mmol/L (98-107); Estimated GFR-MDRD Greater than 90; Glucose 185 mg/dL (70-105); Lipase 556 U/L (8-78); Potassium 4.9 mmol/L (3.5-5.1); Sodium 133 mmol/L (136-145)
[2020-08-26 12:33] LABS: Anion Gap 12 mmol/L (10-20); BUN (Urea Nitrogen) Less than 4 mg/dL (7.0-18.7); Calc. Creatinine Clearance 174 mL/min (70-130); Calcium 7.7 mg/dL (7.8-10.44); Carbon Dioxide 14 mmol/L (22-29); Chloride 114 mmol/L (98-107); Estimated GFR-MDRD Greater than 90; Glucose 140 mg/dL (70-105); Potassium 5.1 mmol/L (3.5-5.1); Sodium 135 mmol/L (136-145)
[2020-08-26 12:46] LABS: SARS-CoV-2 MS2 Positive; SARS-CoV-2 N Gene Negative; SARS-CoV-2 S Gene Negative; SARS-CoV-2 by NAA Not Detected (NotDetected); SARS-CoV-2 orf1ab Negative
[2020-08-27] MEDS ORDERED: Ondansetron PF 4 MG/2 ML Vial IVP SCH (03:45)
[2020-08-27 04:11] LABS: Anion Gap 8 mmol/L (10-20); BUN (Urea Nitrogen) Less than 4 mg/dL (7.0-18.7); Calc. Creatinine Clearance 200 mL/min (70-130); Carbon Dioxide 19 mmol/L (22-29); Cardiac Risk 4.6 (Less than 4.5); Chloride 108 mmol/L (98-107); Cholesterol 176 mg/dl (< 200 Desired); Estimated GFR-MDRD Greater than 90; Glucose 211 mg/dL (70-105); HDL Cholesterol 38 mg/dL (>60 Neg Risk); LDL Cholesterol, Calculated 83 mg/dL; Lipase 195 U/L (8-78); Potassium 3.2 mmol/L (3.5-5.1); Sodium 132 mmol/L (136-145); Triglycerides 274 mg/dL (Less than 150)
[2020-08-27 04:31] LABS: #Eosinphils 0.1 thou/uL (0.0-0.7); #Lymphocytes 1.5 thou/uL (1.20-3.40); #Monocytes 0.4 thou/uL (0.11-0.59); #Neutrophils 7.5 thou/uL (1.40-6.50); %Basophils 0.1 % (0.0-1.0); %Eosinophils 0.5 % (0.0-10.0); %Lymphocytes 15.7 % (21.0-51.0); %Monocytes 4.6 % (0.0-10.0); %Neutrophils 79.1 % (42.0-75.0); Hemoglobin 10.6 g/dL (12.0-16.0); Mean Corpuscular Hemoglobin 23.4 pg (27.0-31.0); Mean Corpuscular Volume 73.1 fL (78.0-98.0); Mean Platelet Volume 11.3 fL (7.4-10.4); Platelet Count 109 thou/uL (130-400); Platelet Morphology Comment Appears Decreased; RBC Distribution Width 16.2 % (11.5-14.5); Red Blood Cell (RBC) Count 4.53 mill/uL (4.20-5.40); White Blood Cell (WBC) Count 9.4 thou/uL (4.8-10.8)
[2020-08-27] MEDS ORDERED: Potassium Chloride 20 MEQ TAB PO SCH (07:00)
[2020-08-27] MEDS: cefTRIAXone\\ROCEPHIN 2 GM in Sodium Chloride 0.9% 100 ML IVPB SCH (09:29)
[2020-08-27] MEDS: Lisinopril 5 MG TAB PO SCH (09:29)
--- NOTE | 2020-08-27 15:48 | PDOC.HOSPP ---
- Subjective Encounter Date: 08/27/20 Encounter Time: 15:45 Subjective: f/u for DKA/Pancreatitis on insulin gtt and DKA protocol. Feels better overall and tolerating clear liquids. - Objective Vital Signs & Weight: Vital Signs (12 hours) Temp 08/27/20 15:00 98.5 F 08/27/20 13:13 97.8 F 08/27/20 07:37 98.0 F 08/27/20 03:52 97.9 F Weight Weight 155 lb Most Recent Monitor Data Heart Rate from ECG 113 NIBP 117/88 NIBP BP-Mean 97 Respiration from ECG 25 SpO2 97 I&O: 08/26/20 08/27/20 08/28/20 06:59 06:59 06:59 Intake Total 3998 Output Total 0 700 Balance 3998 -700 Result Diagrams: 08/27/20 03:27 08/27/20 03:27 Additional Labs: Accuchecks 08/27/20 08/27/20 08/27/20 12:46 10:08 08:15 POC Glucose 167 H 213 H 243 H 08/27/20 08/27/20 08/27/20 06:59 05:48 05:04 POC Glucose 210 H 219 H 209 H 08/27/20 08/27/20 08/27/20 03:57 02:53 01:38 POC Glucose 222 H 218 H 206 H 08/27/20 08/26/20 08/26/20 00:08 23:12 22:04 POC Glucose 218 H 225 H 233 H 08/26/20 08/26/20 08/26/20 20:21 19:02 18:12 POC Glucose 272 H 160 H 145 H 08/26/20 17:02 POC Glucose 135 H EKG Reviewed by me: Yes (Tele - sinus tachycardia) Hospitalist ROS - Medication Medications: Active Medications Generic Name Dose Route Start Last Admin Trade Name Freq PRN Reason Stop Dose Admin Acetaminophen 1,000 mg 08/26/20 09:59 08/26/20 20:32 Acetaminophen 500 Mg Tab PO 1,000 mg Q6H PRN Administration Moderate to Severe Pain (6-10) Potassium Chloride/Sodium Chloride 1,000 mls @ 500 mls/hr 08/26/20 03:31 08/26/20 06:36 Ns 0.9% W/ 20 Meq Kcl IV 1,000 mls .Q2H PRN Administration Step 2 of DKA Protocol Protocol Dextrose/Sodium Chloride 1,000 mls @ 250 mls/hr 08/26/20 03:31 08/26/20 12:30 D5 1/2 Ns IV 1,000 mls .Q4H PRN Administration Step 4 of DKA Protocol Protocol Potassium Chloride/Sodium Chloride 1,000 mls @ 250 mls/hr 08/26/20 03:31 08/26/20 08:30 Ns 0.9% W/ 20 Meq Kcl IV 1,000 mls .Q4H PRN Administration SEE STEP 3 OF DKA PROTOCOL Protocol Ceftriaxone Sodium 2 gm/ 100 mls @ 200 mls/hr 08/26/20 10:00 08/27/20 09:29 Sodium Chloride IVPB 100 mls Q24HR TINA Administration Ketorolac Tromethamine 30 mg 08/26/20 09:59 08/27/20 03:18 Ketorolac Tromethamine 30 Mg/Ml Vial IVP 08/31/20 10:00 30 mg Q6H PRN Administration Pain-MILD Lisinopril 5 mg 08/27/20 09:00 08/27/20 09:29 Lisinopril 5 Mg Tab PO 5 mg DAILY TINA Administration Sodium Chloride 10 ml 08/26/20 21:00 08/27/20 09:29 Flush - Normal Saline 10 Ml Syringe IVF 10 ml Q12HR TINA Administration - Exam General Appearance: NAD, awake alert Eye: PERRL, anicteric sclera ENT: normocephalic atraumatic, no oropharyngeal lesions Neck: supple, symmetric, no JVD, no thyromegaly, no lymphadenopathy Heart: no gallops, no rubs, normal peripheral pulses Heart - other findings: S1, S2, tachycardic Respiratory: CTAB, no wheezes, no rales, no ronchi, normal chest expansion Gastrointestinal: soft, non-tender, non-distended, normal bowel sounds Extremities: no cyanosis, no clubbing, no edema Skin: normal turgor, no lesions Neurological: cranial nerve grossly intact, no new deficit Musculoskeletal: normal tone, normal strength, no muscle wasting Psychiatric: normal affect, A&O x 3 Hosp A/P (1) DKA, type 1 Code(s): E10.10 - TYPE 1 DIABETES MELLITUS WITH KETOACIDOSIS WITHOUT COMA Status: Acute Qualifiers: Diabetes mellitus complication detail: without coma Qualified Code(s): E10.10 - Type 1 diabetes mellitus with ketoacidosis without coma Plan: Resolving currently, d/c Insulin gtt, ISS, resume ADA and long-acting Levemir in am (2) UTI (urinary tract infection) Status: Acute Plan: Rocephin IV daily, likely de-escalate abx in 24h (3) Hyperlipidemia Code(s): E78.5 - HYPERLIPIDEMIA, UNSPECIFIED Status: Acute (4) Acute pancreatitis Code(s): K85.90 - ACUTE PANCREATITIS WITHOUT NECROSIS OR INFECTION, UNSP Status: Acute Qualifiers: Plan: Resolving, advance diet, serial Lipase (5) Sinus tachycardia Code(s): R00.0 - TACHYCARDIA, UNSPECIFIED Status: Acute - Plan plan discussed w/ family, 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
[2020-08-27] MEDS ORDERED: Dextrose 5% in Water 1,000 ML IV PRN (15:54)
[2020-08-27] MEDS ORDERED: Dextrose 50% Abboject 50 ML SYRINGE SLOW IVP PRN (15:54)
[2020-08-27] MEDS ORDERED: HumaLOG 300 UNITS/3 ML VIAL SC PRN ×2 (15:54)
[2020-08-28 06:13] LABS: #Basophils 0.1 thou/uL (0.0-0.2); #Eosinphils 0.1 thou/uL (0.0-0.7); #Lymphocytes 2.2 thou/uL (1.20-3.40); #Monocytes 0.5 thou/uL (0.11-0.59); #Neutrophils 4.6 thou/uL (1.40-6.50); %Basophils 0.8 % (0.0-1.0); %Eosinophils 1.1 % (0.0-10.0); %Lymphocytes 29.5 % (21.0-51.0); %Monocytes 6.2 % (0.0-10.0); %Neutrophils 62.4 % (42.0-75.0); Hemoglobin 9.4 g/dL (12.0-16.0); Mean Corpuscular HGB CONC 30.6 g/dL (32.0-36.0); Mean Corpuscular Hemoglobin 22.5 pg (27.0-31.0); Mean Corpuscular Volume 73.7 fL (78.0-98.0); Mean Platelet Volume 11.4 fL (7.4-10.4); Platelet Count 107 thou/uL (130-400); RBC Distribution Width 16.1 % (11.5-14.5); Red Blood Cell (RBC) Count 4.15 mill/uL (4.20-5.40); White Blood Cell (WBC) Count 7.4 thou/uL (4.8-10.8)
[2020-08-28 06:35] LABS: Anion Gap 12 mmol/L (10-20); BUN (Urea Nitrogen) 4 mg/dL (7.0-18.7); Calc. Creatinine Clearance 195 mL/min (70-130); Calcium 8.1 mg/dL (7.8-10.44); Carbon Dioxide 20 mmol/L (22-29); Chloride 106 mmol/L (98-107); Estimated GFR-MDRD Greater than 90; Glucose 222 mg/dL (70-105); Lipase 98 U/L (8-78); Potassium 3.3 mmol/L (3.5-5.1); Sodium 135 mmol/L (136-145)
[2020-08-28] MEDS ORDERED: Potassium Chloride 20 MEQ TAB PO SCH (07:00)
[2020-08-28 08:08] VITALS: BP 129/77; TEMP 98.3
[2020-08-28] MEDS: Lisinopril 5 MG TAB PO SCH (09:53)
[2020-08-28] MEDS: cefTRIAXone\\ROCEPHIN 2 GM in Sodium Chloride 0.9% 100 ML IVPB SCH (09:56)
--- NOTE | 2020-08-29 01:37 | DIS ---
DATE OF ADMISSION: 08/26/2020 DATE OF DISCHARGE: 08/28/2020 DISCHARGE DIAGNOSES: 1. Diabetic ketoacidosis in the context of type 1 diabetes mellitus, resolving. 2. Urinary tract infection suspected without dominant organism identified. 3. Hyperlipidemia. 4. Acute pancreatitis, mild, resolving. 5. Sinus tachycardia. 6. Hypokalemia, mild. CONSULTATIONS: None. PERTINENT LABS AND X-RAY FINDINGS: Potassium ranged between 3.2 to 5.1. CO2 level ranged between less than 8 to 20. Triglycerides 274. Lipase ranged between 98 to 556. Serum beta-hCG negative on 08/25/2020. CBC showed a white blood cell count ranging between 7.4 to 16.8, hemoglobin ranging between 9.4 to 13.1. Beta-hydroxybutyrate level ranged between 1.86 to 4.83. COVID-19 PCR not detected on 08/26/2020. Abdominal ultrasound dated 08/26/2020, showed no evidence for cholelithiasis or cholecystitis. Pancreas obscured by bowel gas. HOSPITAL COURSE: The patient was initially admitted to the intermediate care unit after presenting in diabetic ketoacidosis with associated abdominal pain, nausea, and vomiting. The patient was placed on DKA protocol, in addition received IV Rocephin after concern for potential urinary tract infection. The patient received aggressive fluid resuscitation in addition to insulin infusion. The patient was initially placed on n.p.o. status due to concern for the pancreatitis, which resolved with conservative management. No evidence of obstructive process on abdominal imaging, and the patient clinically improved with hydration therapy. The patient was initiated on clear liquids, tolerating without difficulty, advancing to regular diabetic intake. Overall, the patient did remain clinically stable with stable vital signs at the time of discharge. I have examined the patient at the time of discharge and discussed followup instructions. The patient verbalized understanding and agreement, ready for discharge on 08/28/2020. DISCHARGE MEDICATIONS: 1. Levemir 15 units subcutaneously daily. 2. Bayard-3 fatty acids 1000 mg p.o. at bedtime. 3. Metformin 500 mg p.o. b.i.d. 4. Omnicef 300 mg p.o. b.i.d. x5 days. 5. Fenofibrate 145 mg p.o. daily. 6. Lisinopril 5 mg p.o. daily. FOLLOWUP: The patient may follow up with her primary care provider, Dr. Pat Kumar. CONDITION ON DISCHARGE: Stable. ACTIVITY: Ad-britni. DIET: ADA. CODE STATUS: Full. DISPOSITION: To home on 08/28/2020. TIME SPENT: Total time preparing and coordinating discharge, 33 minutes. Job ID: [id number]
== END 2020-08-28 11:10 | disposition home or self-care (01) | DRG 438 ==
LOC: ERS 21:53 → ERHOLD 08-26 02:58 → IMCU/EMU 08-26 07:38 → 3SE 08-27 19:37
PROVIDERS: ADMIT Internal Medicine; ATTEND Internal Medicine
DX: K85.90 Acute pancreatitis without necrosis or infection, unspecified (principal); E10.10 Type 1 diabetes mellitus with ketoacidosis without coma; N39.0 Urinary tract infection, site not specified; Z20.828 Contact with and (suspected) exposure to other viral communicable diseases; E78.5 Hyperlipidemia, unspecified; E87.6 Hypokalemia; E78.1 Pure hyperglyceridemia; Z90.49 Acquired absence of other specified parts of digestive tract; Z79.4 Long term (current) use of insulin; Z79.899 Other long term (current) drug therapy
CPT/HCPCS: 36415; 36416; 76705; 80048; 80053; 80061; 81003; 81015; 82010; 82248; 82330; 82803; 83690; 83930; 84703; 85014; 85025; 87635; 96365; 96366; 96374; 96375; 96376; 99292; J0696; J1885; J2270; J2405; J2550; J3480; J3490; U0003

== ENCOUNTER 2021-01-23 22:05 | Inpatient (IN) | payer OTHER ==
[2021-01-24] MEDS ORDERED: Ondansetron PF 4 MG/2 ML Vial ONE (00:58)
[2021-01-24] MEDS ORDERED: Acetaminophen 500 MG TAB ONE (00:58)
[2021-01-24] MEDS ORDERED: INSULIN REGULAR IN 0.9 % NACL 100 UNIT/100 ML BAG ONE (02:36)
[2021-01-24] MEDS ORDERED: Dextrose 50% Abboject 50 ML SYRINGE SLOW IVP PRN (04:03)
[2021-01-24] MEDS ORDERED: Dextrose 5 %-0.45 % NaCl 1,000 ML IV PRN ×2 (04:15→06:44)
[2021-01-24] MEDS ORDERED: D5 1/2 NS w/20 mEq KCL 1,000 ML IV PRN ×2 (04:15→06:44)
[2021-01-24] MEDS ORDERED: Dextrose 5% in Water 1,000 ML IV PRN (04:15)
[2021-01-24] MEDS ORDERED: HUMULIN R 100 UNITS in Sodium Chloride 0.9% 100 ML IVPB SCH ×2 (04:15→06:45)
[2021-01-24] MEDS ORDERED: NS 0.9% w/ 20 MEQ KCL 1,000 ML/1,000 ML BAG IV PRN ×2 (04:15)
[2021-01-24] MEDS ORDERED: Sodium Chloride 0.9% 1,000 ML IV PRN ×8 (04:15→06:44)
[2021-01-24] MEDS ORDERED: NS 0.9% w/ 20 MEQ KCL 1,000 ML ONE (04:32)
[2021-01-24] MEDS ORDERED: NS 0.9% w/ 20 MEQ KCL 0 ML ONE (04:32)
[2021-01-24] MEDS ORDERED: Ondansetron ODT 4 MG TAB PO PRN (05:18)
[2021-01-24] MEDS ORDERED: Ondansetron PF 4 MG/2 ML Vial IVP PRN (05:18)
[2021-01-24 05:51] VITALS: BMI 26.9
[2021-01-24] MEDS ORDERED: Electrolyte Replacement Protocol 1 EACH IVPB SCH (06:44)
[2021-01-24] MEDS ORDERED: NS 0.9% w/ 20 MEQ KCL 1,000 ML IV PRN ×2 (06:44)
[2021-01-24] MEDS ORDERED: Magnesium Sulfate 4 GM in Sodium Chloride 0.9% 250 ML 250 ML IVPB SCH ×2 (07:15→09:45)
[2021-01-24] MEDS ORDERED: D5 1/2 NS w/20 mEq KCL 1,000 ML ONE (08:22)
[2021-01-24] MEDS ORDERED: Senokot S 8.6-50 MG TAB PO PRN (08:35)
[2021-01-24] MEDS ORDERED: Calcium Carbonate 500 MG ChewTAB PO PRN (08:35)
[2021-01-24] MEDS ORDERED: Insulin Regular 300 UNITS/3 ML VIAL SC PRN (08:40)
[2021-01-24] MEDS ORDERED: Insulin Glargine 10 UNITS in Pre-Filled Syringe 1 EACH SC SCH ×2 (08:45→21:00)
[2021-01-24] MEDS: 1/2 NS w/KCL 20 mEq 1,000 ML IV SCH ×3 (08:45→22:04)
[2021-01-24] MEDS ORDERED: Famotidine 20 MG TAB ONE (09:12)
[2021-01-24] MEDS: Famotidine 20 MG TAB PO SCH ×2 (09:25→20:30)
[2021-01-24] MEDS: Lantus 1000 UNITS/10 ML VIAL SC SCH (09:50)
[2021-01-24] MEDS ORDERED: FLU VACC QS2020-21(6MOS UP)/PF 60 MCG/0.5 ML SYRINGE IM ONE (12:45)
[2021-01-24] MEDS: Acetaminophen 325 MG TAB PO PRN ×2 (12:49→18:51)
[2021-01-24] MEDS: Insulin Regular 300 UNITS/3 ML VIAL SC PRN (15:48)
[2021-01-24] MEDS ORDERED: Enoxaparin Sodium 40 MG/0.4 ML SYRINGE SC SCH (21:00)
[2021-01-24] MEDS ORDERED: Lantus 1000 UNITS/10 ML VIAL SC SCH (21:00)
[2021-01-25] MEDS: Acetaminophen 325 MG TAB PO PRN ×2 (00:06→05:18)
[2021-01-25] MEDS: 1/2 NS w/KCL 20 mEq 1,000 ML IV SCH ×2 (05:11→14:20)
[2021-01-25] MEDS: Insulin Regular 300 UNITS/3 ML VIAL SC PRN ×2 (05:19→12:37)
[2021-01-25] MEDS ORDERED: Magnesium 2 GM/50 ML 2 GM in Premix Bag 1 BAG IVPB SCH (08:00)
[2021-01-25] MEDS: Lantus 1000 UNITS/10 ML VIAL SC SCH (08:08)
[2021-01-25] MEDS: Famotidine 20 MG TAB PO SCH (08:10)
[2021-01-25 16:34] VITALS: BP 149/89; TEMP 98.6
== END 2021-01-25 17:07 | disposition home or self-care (01) | DRG 637 ==
LOC: ERS 22:05 → T4-A 01-24 01:00 → ERHOLD 01-24 04:32 → T4-A 01-24 10:42
PROVIDERS: ADMIT Student in an Organized Health Care Education/Training Program; ATTEND Internal Medicine
DX: E10.10 Type 1 diabetes mellitus with ketoacidosis without coma (principal); U07.1 COVID-19; I10 Essential (primary) hypertension; E78.5 Hyperlipidemia, unspecified; Z79.4 Long term (current) use of insulin; Z90.49 Acquired absence of other specified parts of digestive tract; Z90.89 Acquired absence of other organs
CPT/HCPCS: 36415; 36416; 71045; 80048; 80053; 81003; 81015; 81025; 82010; 82310; 82728; 82805; 83735; 83930; 84100; 85025; 85379; 86140; 96365; 96366; 96367; 96375; J1650; J1815; J2405; J3475; J3480; J7050; U0002

== ENCOUNTER 2021-02-09 14:34 | Inpatient (IN) | payer OTHER ==
[2021-02-09] MEDS ORDERED: Ondansetron PF 4 MG/2 ML Vial ONE ×2 (14:50→16:43)
[2021-02-09 14:59] LABS: Analyzer IN Cardio ER; Base Excess -12.4 mEq/L (-2.0 to +3.0); Calcium, Ionized (venous) 1.21 mmol/L (1.16-1.32); Chloride (VBG) 104 mmol/L (98-106); Hemoglobin (Hb) 13.2 g/dL (11.7-15.5); Potassium (VBG) 4.26 mmol/L (3.70-5.30); Sodium 137.2 mmol/L (133-146); pH (venous) 7.28 (7.32-7.43)
[2021-02-09 15:10] LABS: Actual Bicarbonate (HCO3v) 13 mEq/L (22-28)
[2021-02-09 15:17] LABS: #Basophils 0.1 thou/uL (0.0-0.2); #Eosinphils 0.1 thou/uL (0.0-0.7); #Lymphocytes 3.3 thou/uL (1.20-3.40); #Monocytes 0.5 thou/uL (0.11-0.59); #Neutrophils 11.9 thou/uL (1.40-6.50); %Basophils 0.3 % (0.0-1.0); %Eosinophils 0.3 % (0.0-10.0); %Monocytes 3.3 % (0.0-10.0); %Neutrophils 75.1 % (42.0-75.0); BHCG - Serum Negative (NEGATIVE); Hemoglobin 12.6 g/dL (12.0-16.0); Mean Corpuscular Hemoglobin 27.6 pg (27.0-31.0); Mean Corpuscular Volume 74.6 fL (78.0-98.0); Mean Platelet Volume 10.5 fL (7.4-10.4); Platelet Count 188 thou/uL (130-400); RBC Distribution Width 15.9 % (11.5-14.5); Red Blood Cell (RBC) Count 4.56 mill/uL (4.20-5.40); White Blood Cell (WBC) Count 15.9 thou/uL (4.8-10.8)
[2021-02-09 15:20] LABS: Pregs Control Background? CLEAR/WHITE (CLR/WHITE); Pregs Control Bar Appear? YES (CONTROL BAR)
[2021-02-09 16:22] LABS: Anion Gap 30 mmol/L (10-20); BUN (Urea Nitrogen) 6 mg/dL (7.0-18.7); Bilirubin, Total 0.4 mg/dL (0.2-1.2); Calc. Creatinine Clearance 0 mL/min (70-130); Carbon Dioxide 10 mmol/L (22-29); Chloride 109 mmol/L (98-107); Glucose 334 mg/dL (70-105); Potassium 4.3 mmol/L (3.5-5.1); Sodium 144 mmol/L (136-145)
[2021-02-09 16:23] LABS: AST (SGOT) 10 U/L (5-34); Albumin 4.3 g/dL (3.5-5.0); Alkaline Phosphatase 98 U/L (40-110); Globulin 2.3 g/dL (2.4-3.5); Protein, Total 6.6 g/dL (6.0-8.3)
[2021-02-09 16:24] LABS: ALT (SGPT) 8 U/L (8-55); Lipase 66 U/L (8-78)
[2021-02-09] MEDS ORDERED: Acetaminophen 500 MG TAB ONE (16:43)
[2021-02-09] MEDS ORDERED: INSULIN REGULAR IN 0.9 % NACL 100 UNIT/100 ML BAG ONE (16:43)
[2021-02-09] MEDS: HUMULIN R 100 UNITS in Sodium Chloride 0.9% 100 ML IVPB SCH (16:59)
[2021-02-09] MEDS ORDERED: NS 0.9% w/ 20 MEQ KCL 1,000 ML IV PRN ×2 (18:00)
[2021-02-09] MEDS ORDERED: Electrolyte Replacement Protocol 1 EACH IVPB ONE (18:00)
[2021-02-09] MEDS ORDERED: Sodium Chloride 0.9% 1,000 ML IV PRN ×2 (18:00)
[2021-02-09] MEDS ORDERED: Promethazine HCl 25 MG/ML VIAL IM/IV PRN (18:15)
[2021-02-09] MEDS ORDERED: Electrolyte Replacement Protocol FS PRN (18:15)
[2021-02-09] MEDS ORDERED: Ondansetron PF 4 MG/2 ML Vial IVP PRN (18:16)
[2021-02-09] MEDS ORDERED: Promethazine HCl 25 MG/ML VIAL ONE (18:52)
[2021-02-09 19:01] LABS: Calcium 9.6 mg/dL (7.8-10.44); Chloride 100 mmol/L (98-107); Sodium 125 mmol/L (136-145)
[2021-02-09 19:02] LABS: Magnesium 1.1 mg/dL (1.6-2.6)
[2021-02-09 19:29] LABS: Glucose 206 mg/dL (70-105)
[2021-02-09 19:58] LABS: BUN (Urea Nitrogen) Less than 4 mg/dL (7.0-18.7); Carbon Dioxide Less than 8 mmol/L (22-29)
[2021-02-09 19:59] LABS: Calc. Creatinine Clearance 0 mL/min (70-130); Phosphorus 3.8 mg/dL (2.3-4.7)
[2021-02-09] MEDS ORDERED: Magnesium 2 GM/50 ML BAG (IN WATER) ONE (20:15)
[2021-02-09] MEDS ORDERED: Magnesium Sulfate 4 GM in Sodium Chloride 0.9% 250 ML 250 ML IVPB SCH (20:30)
[2021-02-09] MEDS ORDERED: cefTRIAXone\\ROCEPHIN 1 GM VIAL ONE (21:17)
[2021-02-09] MEDS ORDERED: Haloperidol Lactate 5 MG/ML VIAL ONE (21:17)
[2021-02-09] MEDS: cefTRIAXone\\ROCEPHIN 1 GM in Sodium Chloride 0.9% 100 ML IVPB SCH (21:24)
[2021-02-09 21:48] LABS: BUN (Urea Nitrogen) Less than 4 mg/dL (7.0-18.7); Calc. Creatinine Clearance 0 mL/min (70-130); Carbon Dioxide 11 mmol/L (22-29); Chloride 115 mmol/L (98-107); Sodium 142 mmol/L (136-145)
[2021-02-09 21:49] LABS: Calcium 7.3 mg/dL (7.8-10.44); Glucose 176 mg/dL (70-105)
[2021-02-09 21:50] LABS: Anion Gap 21 mmol/L (10-20)
[2021-02-09] MEDS ORDERED: Famotidine/PF 20 mg/2ml Vial ONE (22:02)
[2021-02-09] MEDS: Famotidine/PF 20 mg/2ml Vial SLOW IVP SCH (22:11)
[2021-02-09 23:20] LABS: Potassium 4.7 mmol/L (3.5-5.1); Sodium 136 mmol/L (136-145)
[2021-02-09 23:21] LABS: BUN (Urea Nitrogen) Less than 4 mg/dL (7.0-18.7); Calc. Creatinine Clearance 0 mL/min (70-130); Carbon Dioxide 10 mmol/L (22-29); Chloride 113 mmol/L (98-107)
[2021-02-09 23:22] LABS: Calcium 7.3 mg/dL (7.8-10.44); Glucose 172 mg/dL (70-105)
[2021-02-09 23:23] LABS: Anion Gap 18 mmol/L (10-20)
[2021-02-10] MEDS ORDERED: Acetaminophen 500 MG TAB ONE (01:53)
[2021-02-10] MEDS ORDERED: Acetaminophen 325 MG TAB ONE ×3 (01:53→16:06)
[2021-02-10] MEDS ORDERED: INSULIN REGULAR IN 0.9 % NACL 100 UNIT/100 ML BAG ONE (01:54)
[2021-02-10] MEDS: Acetaminophen 325 MG TAB PO PRN ×4 (01:55→22:27)
[2021-02-10] MEDS: D5 1/2 NS w/20 mEq KCL 1,000 ML IV PRN ×2 (02:45→10:57)
[2021-02-10 02:50] LABS: #Basophils 0.1 thou/uL (0.0-0.2); #Eosinphils 0.1 thou/uL (0.0-0.7); #Lymphocytes 2.9 thou/uL (1.20-3.40); #Monocytes 0.7 thou/uL (0.11-0.59); #Neutrophils 11.7 thou/uL (1.40-6.50); %Basophils 0.4 % (0.0-1.0); %Eosinophils 0.8 % (0.0-10.0); %Lymphocytes 18.8 % (21.0-51.0); %Monocytes 4.3 % (0.0-10.0); %Neutrophils 75.7 % (42.0-75.0); Hemoglobin 12.3 g/dL (12.0-16.0); Mean Corpuscular HGB CONC 37.4 g/dL (32.0-36.0); Mean Corpuscular Hemoglobin 27.9 pg (27.0-31.0); Mean Corpuscular Volume 74.4 fL (78.0-98.0); Mean Platelet Volume 10.4 fL (7.4-10.4); Platelet Count 149 thou/uL (130-400); RBC Distribution Width 16.2 % (11.5-14.5); Red Blood Cell (RBC) Count 4.42 mill/uL (4.20-5.40); White Blood Cell (WBC) Count 15.4 thou/uL (4.8-10.8)
[2021-02-10 03:13] LABS: BUN (Urea Nitrogen) Less than 4 mg/dL (7.0-18.7); Calc. Creatinine Clearance 0 mL/min (70-130); Calcium 7.9 mg/dL (7.8-10.44); Chloride 108 mmol/L (98-107); Glucose 159 mg/dL (70-105); Potassium 4.6 mmol/L (3.5-5.1); Sodium 128 mmol/L (136-145)
[2021-02-10 03:46] LABS: Carbon Dioxide Less than 8 mmol/L (22-29)
[2021-02-10] MEDS ORDERED: Sodium Bicarb 50 MEQ/50 ML Abboject 8.4% SYRINGE ONE ×3 (04:11→16:15)
[2021-02-10] MEDS ORDERED: Sodium Bicarb 50 MEQ/50 ML Abboject 8.4% SYRINGE IVP SCH (04:15)
[2021-02-10] MEDS ORDERED: Ondansetron PF 4 MG/2 ML Vial ONE (04:44)
[2021-02-10 04:54] LABS: SARS-CoV-2 PCR by NAA Not Detected (NotDetected)
[2021-02-10 05:17] LABS: BUN (Urea Nitrogen) Less than 4 mg/dL (7.0-18.7); Calc. Creatinine Clearance 0 mL/min (70-130); Calcium 7.7 mg/dL (7.8-10.44); Carbon Dioxide Less than 8 mmol/L (22-29); Chloride 108 mmol/L (98-107); Glucose 223 mg/dL (70-105); Magnesium 1.7 mg/dL (1.6-2.6); Potassium 4.8 mmol/L (3.5-5.1); Sodium 131 mmol/L (136-145)
[2021-02-10] MEDS ORDERED: Magnesium 2 GM/50 ML 2 GM in Premix Bag 1 BAG IVPB SCH (05:30)
[2021-02-10] MEDS: Dextrose 5 %-0.45 % NaCl 1,000 ML IV PRN ×2 (06:12→09:51)
[2021-02-10] MEDS ORDERED: Famotidine/PF 20 mg/2ml Vial ONE (07:36)
[2021-02-10] MEDS ORDERED: Enoxaparin Sodium 40 MG/0.4 ML SYRINGE ONE (07:36)
[2021-02-10] MEDS: HUMULIN R 100 UNITS in Sodium Chloride 0.9% 100 ML IVPB SCH ×2 (07:41→13:26)
[2021-02-10] MEDS ORDERED: Sodium Bicarb 50 MEQ/50 ML VIAL IVP SCH ×2 (07:45→15:45)
[2021-02-10] MEDS: Enoxaparin Sodium 40 MG/0.4 ML SYRINGE SC SCH (07:48)
[2021-02-10] MEDS: Famotidine/PF 20 mg/2ml Vial SLOW IVP SCH ×2 (07:49→20:18)
[2021-02-10 10:37] LABS: Actual Bicarbonate (HCO3v) 17 mEq/L (22-28); Analyzer IN Cardio ER; Base Excess -6.7 mEq/L (-2.0 to +3.0); Calcium, Ionized (venous) 1.08 mmol/L (1.16-1.32); Chloride (VBG) 110 mmol/L (98-106); Hemoglobin (Hb) 11.6 g/dL (11.7-15.5); Potassium (VBG) 3.62 mmol/L (3.70-5.30); Sodium 135.1 mmol/L (133-146); pH (venous) 7.41 (7.32-7.43)
[2021-02-10 10:38] LABS: Calcium 7.8 mg/dL (7.8-10.44); Chloride 108 mmol/L (98-107); Potassium 3.9 mmol/L (3.5-5.1); Sodium 133 mmol/L (136-145)
[2021-02-10 10:39] LABS: Glucose 169 mg/dL (70-105)
[2021-02-10 10:40] LABS: Anion Gap 18 mmol/L (10-20); Carbon Dioxide 11 mmol/L (22-29)
[2021-02-10 10:52] LABS: BUN (Urea Nitrogen) Less than 4 mg/dL (7.0-18.7); Calc. Creatinine Clearance 0 mL/min (70-130)
[2021-02-10 15:07] LABS: Anion Gap 15 mmol/L (10-20); BUN (Urea Nitrogen) Less than 4 mg/dL (7.0-18.7); Calc. Creatinine Clearance 0 mL/min (70-130); Carbon Dioxide 15 mmol/L (22-29); Chloride 112 mmol/L (98-107); Glucose 132 mg/dL (70-105); Potassium 4.1 mmol/L (3.5-5.1); Sodium 138 mmol/L (136-145)
[2021-02-10] MEDS: Sodium Chloride 0.9% 1,000 ML IV SCH (16:22)
[2021-02-10 16:30] LABS: Cardiac Risk 15.5 (Less than 4.5); Cholesterol 309 mg/dl (< 200 Desired); HDL Cholesterol 20 mg/dL (>60 Neg Risk)
[2021-02-10 16:45] LABS: Triglycerides 961 mg/dL (Less than 150)
[2021-02-10 17:02] VITALS: BMI 29.9
[2021-02-10] MEDS ORDERED: HumaLOG 300 UNITS/3 ML VIAL SC PRN (19:17)
[2021-02-10] MEDS ORDERED: Dextrose 5% in Water 1,000 ML IV PRN (19:17)
[2021-02-10] MEDS ORDERED: Dextrose 50% Abboject 50 ML SYRINGE SLOW IVP PRN (19:17)
[2021-02-10] MEDS: cefTRIAXone\\ROCEPHIN 1 GM in Sodium Chloride 0.9% 100 ML IVPB SCH (20:18)
[2021-02-10 23:18] LABS: Bacteria/HPF None Seen HPF (None Seen); Bilirubin Negative (Negative); Blood, Urine Negative (Negative); Clarity Clear (Clear); Glucose, Urine (Dipstick) Greater than 1000 mg/dL (Negative); Ketone, Urine 80 mg/dL (Negative); Leukocyte Negative Leu/uL (Negative); Nitrite Negative (Negative); Protein, Urine (Dipstick) Negative (Neg-Trace); RBC/HPF 0-3 HPF (0-3); Specific Gravity, Urine 1.014 (1.002-1.036); Squamous Epithelial 0-3 HPF (0-3); Urobilinogen Normal mg/dL (Less than 2); WBC/HPF 0-3 HPF (0-3)
[2021-02-11] MEDS: Acetaminophen 325 MG TAB PO PRN ×4 (03:53→19:44)
[2021-02-11] MEDS: Sodium Chloride 0.9% 1,000 ML IV SCH (03:56)
[2021-02-11] MEDS: HumaLOG 300 UNITS/3 ML VIAL SC PRN ×3 (05:47→17:24)
[2021-02-11 06:24] LABS: Anion Gap 18 mmol/L (10-20); BUN (Urea Nitrogen) Less than 4 mg/dL (7.0-18.7); Calc. Creatinine Clearance 177 mL/min (70-130); Calcium 8.2 mg/dL (7.8-10.44); Carbon Dioxide 15 mmol/L (22-29); Chloride 106 mmol/L (98-107); Glucose 225 mg/dL (70-105); Potassium 3.5 mmol/L (3.5-5.1); Sodium 135 mmol/L (136-145)
[2021-02-11 06:47] LABS: #Eosinphils 0.1 thou/uL (0.0-0.7); #Lymphocytes 1.6 thou/uL (1.20-3.40); #Monocytes 0.3 thou/uL (0.11-0.59); #Neutrophils 3.7 thou/uL (1.40-6.50); %Basophils 0.4 % (0.0-1.0); %Lymphocytes 28.5 % (21.0-51.0); %Monocytes 4.4 % (0.0-10.0); %Neutrophils 65.7 % (42.0-75.0); Band 4 % (5-11); Hemoglobin 10.2 g/dL (12.0-16.0); Hypochromia SLIGHT = 6-15 cells (100X) (0-5/hpf); Lymphocytes 28 % (21-51); MDiff Complete? YES; Mean Corpuscular HGB CONC 33.3 g/dL (32.0-36.0); Mean Corpuscular Hemoglobin 25.3 pg (27.0-31.0); Mean Platelet Volume 11.2 fL (7.4-10.4); Monocytes 2 % (0-10); Neutrophil 66 % (42-75); Platelet Count 101 thou/uL (130-400); Platelet Morphology Comment Appears Decreased; RBC Distribution Width 16.7 % (11.5-14.5); Red Blood Cell (RBC) Count 4.04 mill/uL (4.20-5.40); White Blood Cell (WBC) Count 5.6 thou/uL (4.8-10.8)
[2021-02-11] MEDS: Famotidine/PF 20 mg/2ml Vial SLOW IVP SCH ×2 (08:39→19:33)
[2021-02-11] MEDS: Atorvastatin Calcium 20 MG TAB PO SCH (08:39)
[2021-02-11] MEDS: Fenofibrate Nanocrystallized 145 MG TAB PO SCH (08:39)
[2021-02-11] MEDS: Lisinopril 5 MG TAB PO SCH (08:39)
[2021-02-11] MEDS: Enoxaparin Sodium 40 MG/0.4 ML SYRINGE SC SCH (08:39)
[2021-02-11] MEDS: Potassium Chloride 20 MEQ in Premix Bag 1 BAG IVPB SCH ×2 (08:39→09:40)
[2021-02-11] MEDS: Lantus 1000 UNITS/10 ML VIAL SC SCH (08:49)
[2021-02-11] MEDS: Lactated Ringer's 1,000 ML IV SCH ×2 (09:40→17:28)
[2021-02-11] MEDS ORDERED: Magnesium 2 GM/50 ML 2 GM in Premix Bag 1 BAG IVPB SCH (13:15)
[2021-02-11] MEDS: HumaLOG 300 UNITS/3 ML VIAL SC SCH ×2 (15:11→19:36)
[2021-02-11] MEDS: cefTRIAXone\\ROCEPHIN 1 GM in Sodium Chloride 0.9% 100 ML IVPB SCH (19:32)
[2021-02-11] MEDS ORDERED: Fish Oil 1,000 MG CAP PO SCH (21:00)
[2021-02-12] MEDS: Acetaminophen 325 MG TAB PO PRN (00:08)
[2021-02-12] MEDS: Lactated Ringer's 1,000 ML IV SCH ×2 (00:09→12:28)
[2021-02-12 06:12] LABS: #Eosinphils 0.1 thou/uL (0.0-0.7); #Lymphocytes 2.1 thou/uL (1.20-3.40); #Monocytes 0.5 thou/uL (0.11-0.59); #Neutrophils 3.1 thou/uL (1.40-6.50); %Basophils 0.8 % (0.0-1.0); %Eosinophils 1.4 % (0.0-10.0); %Monocytes 7.8 % (0.0-10.0); %Neutrophils 52.9 % (42.0-75.0); Hemoglobin 10.1 g/dL (12.0-16.0); Mean Corpuscular Hemoglobin 25.1 pg (27.0-31.0); Mean Platelet Volume 11.3 fL (7.4-10.4); Platelet Count 97 thou/uL (130-400); RBC Distribution Width 16.7 % (11.5-14.5); Red Blood Cell (RBC) Count 4.03 mill/uL (4.20-5.40); White Blood Cell (WBC) Count 5.8 thou/uL (4.8-10.8)
[2021-02-12 06:27] LABS: Anion Gap 13 mmol/L (10-20); BUN (Urea Nitrogen) Less than 4 mg/dL (7.0-18.7); Calc. Creatinine Clearance 200 mL/min (70-130); Calcium 8.5 mg/dL (7.8-10.44); Carbon Dioxide 24 mmol/L (22-29); Chloride 104 mmol/L (98-107); Glucose 186 mg/dL (70-105); Potassium 3.4 mmol/L (3.5-5.1); Sodium 138 mmol/L (136-145)
[2021-02-12 06:29] LABS: Magnesium 1.5 mg/dL (1.6-2.6); Phosphorus 3.3 mg/dL (2.3-4.7)
[2021-02-12] MEDS ORDERED: Magnesium 2 GM/50 ML 2 GM in Premix Bag 1 BAG IVPB SCH ×2 (06:45→08:30)
[2021-02-12] MEDS ORDERED: Potassium Chloride 20 MEQ TAB PO SCH ×2 (06:45→10:00)
[2021-02-12] MEDS: Atorvastatin Calcium 20 MG TAB PO SCH (08:20)
[2021-02-12] MEDS: Lisinopril 5 MG TAB PO SCH (08:20)
[2021-02-12] MEDS: Fenofibrate Nanocrystallized 145 MG TAB PO SCH (08:20)
[2021-02-12] MEDS: Famotidine/PF 20 mg/2ml Vial SLOW IVP SCH (08:21)
[2021-02-12] MEDS: Lantus 1000 UNITS/10 ML VIAL SC SCH (08:22)
[2021-02-12] MEDS: Enoxaparin Sodium 40 MG/0.4 ML SYRINGE SC SCH (08:22)
[2021-02-12] MEDS: HumaLOG 300 UNITS/3 ML VIAL SC SCH (08:34)
[2021-02-12] MEDS: HumaLOG 300 UNITS/3 ML VIAL SC PRN (12:24)
[2021-02-12 12:49] VITALS: BP 146/80; TEMP 97.6
== END 2021-02-12 12:48 | disposition home or self-care (01) | DRG 639 ==
LOC: ERS 14:34 → ERHOLD 17:45 → T4-B 02-10 16:57
PROVIDERS: ADMIT Internal Medicine; ATTEND Internal Medicine
DX: E10.10 Type 1 diabetes mellitus with ketoacidosis without coma (principal); I10 Essential (primary) hypertension; E78.00 Pure hypercholesterolemia, unspecified; Z20.822 Contact with and (suspected) exposure to COVID-19; F41.9 Anxiety disorder, unspecified; E78.1 Pure hyperglyceridemia; E78.5 Hyperlipidemia, unspecified; E87.8 Other disorders of electrolyte and fluid balance, not elsewhere classified; E87.5 Hyperkalemia; D50.9 Iron deficiency anemia, unspecified; E83.42 Hypomagnesemia; Z90.49 Acquired absence of other specified parts of digestive tract; Z79.4 Long term (current) use of insulin; Z79.899 Other long term (current) drug therapy
CPT/HCPCS: 36415; 36416; 80048; 80053; 80061; 81001; 82805; 83690; 83735; 84100; 84478; 84703; 85025; 87635; 93005; 96365; 96366; 96368; 96375; 96376; J0696; J1630; J1650; J1815; J2405; J2550; J3475; J3480; J3490; S0028; U0003; U0005